=== PATIENT | female | born 1945 | race Caucasian/White ===

== ENCOUNTER → 2020-07-17 | Outpatient (CLI) | payer MEDICARE ==
--- NOTE | 2020-07-20 13:27 | MM ---
Reason for exam: screening (asymptomatic). History: Patient is postmenopausal. Took estrogen beginning at age 30. Physical Findings: A clinical breast exam by your physician is recommended on an annual basis and results should be correlated with mammographic findings. MG 3D Screening Mammo W/Cad Bilateral CC and MLO view(s) were taken. No prior studies available for comparison. There are scattered fibroglandular densities. There is no discrete abnormality. ASSESSMENT: Benign, BI-RAD 2 RECOMMENDATION: Routine screening mammogram of both breasts in 1 year.
== END | disposition home or self-care (01) ==
LOC: RADMAMWWP 15:39
PROVIDERS: ATTEND Family Medicine
DX: Z12.31 Encounter for screening mammogram for malignant neoplasm of breast (principal)
CPT/HCPCS: 77063; 77067

== ENCOUNTER 2022-01-21 11:39 | Observation (INO) | payer MEDICARE ==
[2022-01-21] MEDS ORDERED: NITROGLYCERIN OINT 1 INCH/GM PACKET TOPICAL STA (12:08)
[2022-01-21] MEDS ORDERED: ASPIRIN 81 MG PO STA (12:08)
--- NOTE | 2022-01-21 12:11 | ED ---
General Adult HPI - General Source: patient, RN notes reviewed Mode of arrival: wheelchair Limitations: no limitations <Ramana Monroy - Last Filed: 01/21/22 13:25> <Sixto Cramer - Last Filed: 01/21/22 16:57> - General Chief complaint: Chest Pain Stated complaint: Chest Pain Time Seen by Provider: 01/21/22 11:57 - History of Present Illness Initial comments: Patient is a pleasant 76-year-old female presenting to the emergency department chest discomfort. Onset of symptoms was yesterday. Discomfort feels like pressure and is moderate. Discomfort has been steady. Patient did not sleep well. There is some radiation towards the back. No dyspnea. Patient has been nauseous for the past several days and has vomited a couple times. No diaphoresis. Patient has been having abdominal discomfort for the past one week. Patient did have a computed tomography scan a different facility with a questionable fluid collection. Patient also had ultrasound of the left leg. Patient was originally started on blood thinners. When she started having abdominal problems blood thinners were stopped and ultrasound was reviewed showing no evidence of blood clot. (Ramana Monroy) - Related Data Home Medications Medication Instructions Recorded Confirmed Albuterol Sulfate [Ventolin HFA] 2 puff INHALATION RT-Q6H PRN 01/21/22 01/21/22 Cyanocobalamin [Vitamin B-12 1,000 mcg SQ QMONTHLY 01/21/22 01/21/22 Injection] Ergocalciferol (Vitamin D2) 1,250 mcg PO MO 01/21/22 01/21/22 [Drisdol (50,000 Iu)] Folic Acid 1 mg PO DAILY 01/21/22 01/21/22 Levothyroxine Sodium [Synthroid] 150 mcg PO DAILY 01/21/22 01/21/22 Meclizine HCl 25 mg PO BID PRN 01/21/22 01/21/22 Naltrexone HCl [Revia] 50 mg PO DAILY 01/21/22 01/21/22 Pantoprazole [Protonix] 40 mg PO DAILY 01/21/22 01/21/22 Sulfamethox-Tmp 800-160Mg [Bactrim 1 tab PO BID 01/21/22 01/21/22 DS 800-160 mg] cloNIDine HCL [Catapres] 0.1 mg PO BID 01/21/22 01/21/22 hydroCHLOROthiazide [Hydrodiuril] 12.5 mg PO DAILY 01/21/22 01/21/22 Allergies Allergy/AdvReac Type Severity Reaction Status Date / Time nickel Allergy Rash/Hives Verified 01/21/22 13:04 ranitidine [From Zantac] Allergy Swelling Verified 01/21/22 13:04 Review of Systems ROS Other: All systems not noted in ROS Statement are negative. Constitutional: Denies: fever Eyes: Denies: eye pain ENT: Denies: ear pain Respiratory: Denies: cough, dyspnea Cardiovascular: Reports: as per HPI, chest pain Endocrine: Denies: fatigue Gastrointestinal: Reports: as per HPI, abdominal pain, nausea, vomiting Genitourinary: Denies: dysuria Musculoskeletal: Reports: as per HPI Skin: Denies: rash Neurological: Denies: weakness <Ramana Monroy - Last Filed: 01/21/22 13:25> ROS Other: All systems not noted in ROS Statement are negative. <Sixto Cramer - Last Filed: 01/21/22 16:57> ROS Statement: Those systems with pertinent positive or pertinent negative responses have been documented in the HPI. Past Medical History Past Medical History: Hypertension History of Any Multi-Drug Resistant Organisms: None Reported Past Surgical History: Appendectomy, Cholecystectomy, Hernia Repair, Hysterectomy Additional Past Surgical History / Comment(s): gastro bypass Past Psychological History: No Psychological Hx Reported Smoking Status: Never smoker Past Alcohol Use History: Occasional Past Drug Use History: None Reported <Ramana Monroy - Last Filed: 01/21/22 13:25> General Exam Limitations: no limitations General appearance: alert, in no apparent distress Head exam: Present: normocephalic Eye exam: Present: normal appearance Neck exam: Present: normal inspection Respiratory exam: Present: normal lung sounds bilaterally. Absent: chest wall tenderness Cardiovascular Exam: Present: regular rate, normal rhythm, normal heart sounds Expanded Peripheral pulses: 2+: Dorsalis Pedis (R), Dorsalis Pedis (L) GI/Abdominal exam: Present: soft, tenderness (Mild to moderate tenderness left upper quadrant/epigastric). Absent: distended Extremities exam: Present: normal inspection. Absent: pedal edema, calf tenderness Back exam: Present: normal inspection. Absent: tenderness Neurological exam: Present: alert Psychiatric exam: Present: normal affect, normal mood Skin exam: Present: normal color <Ramana Monroy - Last Filed: 01/21/22 13:25> Course Vital Signs 01/21/22 01/21/22 01/21/22 11:40 13:13 15:35 Temperature 98.3 F 98.1 F Pulse Rate 62 57 L 60 Respiratory 18 14 12 Rate Blood Pressure 111/57 136/60 135/63 O2 Sat by Pulse 97 99 99 Oximetry EKG Findings - EKG Comments: EKG Findings:: Sinus bradycardia with rate of 54. For screening AV block IA 209. QRS 94. QT 448. QTC 434. Normal axis. Normal QRS. No acute ST change. <Ramana Monroy - Last Filed: 01/21/22 13:25> Medical Decision Making - Lab Data Result diagrams: 01/21/22 12:56 01/21/22 12:56 <Ramana Monroy - Last Filed: 01/21/22 13:25> - Lab Data Result diagrams: 01/21/22 12:56 01/21/22 12:56 <Sixto Cramer - Last Filed: 01/21/22 16:57> - Medical Decision Making 76-year-old female presenting for chest pain and left upper abdominal pain. Patient was sent in for evaluation of the primary care office. Patient's care was signed out at shift change awaiting CT imaging of both the chest and abdomen. This was reviewed, there is no acute findings, no pulmonary embolism, no dissection. No acute abdominal findings. Patient reevaluated, rate resting comfortably but continued to have left sided chest pain. She will be kept in observation for serial chronic enzymes, telemetry, cardiology consultation. Case discussed with [facility] physician group. (Sixto Cramer) - Lab Data Lab Results 01/21/22 01/21/22 01/21/22 Range/Units 12:56 12:56 12:56 WBC 8.0 (3.8-10.6) k/uL RBC 4.13 (3.80-5.40) m/uL Hgb 9.9 L (11.4-16.0) gm/dL Hct 33.8 L (34.0-46.0) % MCV 81.7 (80.0-100.0) fL MCH 24.0 L (25.0-35.0) pg MCHC 29.4 L (31.0-37.0) g/dL RDW 17.4 H (11.5-15.5) % Plt Count 295 (150-450) k/uL MPV 8.6 Neutrophils % 80 % Lymphocytes % 10 % Monocytes % 5 % Eosinophils % 3 % Basophils % 1 % Neutrophils # 6.3 (1.3-7.7) k/uL Lymphocytes # 0.8 L (1.0-4.8) k/uL Monocytes # 0.4 (0-1.0) k/uL Eosinophils # 0.3 (0-0.7) k/uL Basophils # 0.1 (0-0.2) k/uL Hypochromasia Moderate Anisocytosis Slight Microcytosis Slight PT 10.9 (9.0-12.0) sec INR 1.0 (<1.2) APTT 24.5 (22.0-30.0) sec Sodium 134 L (137-145) mmol/L Potassium 4.7 (3.5-5.1) mmol/L Chloride 100 (98-107) mmol/L Carbon Dioxide 23 (22-30) mmol/L Anion Gap 11 mmol/L BUN 19 H (7-17) mg/dL Creatinine 1.42 H (0.52-1.04) mg/dL Est GFR (CKD-EPI)AfAm 42 (>60 ml/min/1.73 sqM) Est GFR (CKD-EPI)NonAf 37 (>60 ml/min/1.73 sqM) Glucose 101 H (74-99) mg/dL Calcium 8.3 L (8.4-10.2) mg/dL Magnesium 2.1 (1.6-2.3) mg/dL Total Bilirubin 0.8 (0.2-1.3) mg/dL AST 32 (14-36) U/L ALT 8 (4-34) U/L Alkaline Phosphatase 86 (38-126) U/L Troponin I (0.000-0.034) ng/mL Total Protein 7.7 (6.3-8.2) g/dL Albumin 3.9 (3.5-5.0) g/dL Amylase 52 (30-110) U/L Lipase 110 (23-300) U/L 01/21/22 Range/Units 12:56 WBC (3.8-10.6) k/uL RBC (3.80-5.40) m/uL Hgb (11.4-16.0) gm/dL Hct (34.0-46.0) % MCV (80.0-100.0) fL MCH (25.0-35.0) pg MCHC (31.0-37.0) g/dL RDW (11.5-15.5) % Plt Count (150-450) k/uL MPV Neutrophils % % Lymphocytes % % Monocytes % % Eosinophils % % Basophils % % Neutrophils # (1.3-7.7) k/uL Lymphocytes # (1.0-4.8) k/uL Monocytes # (0-1.0) k/uL Eosinophils # (0-0.7) k/uL Basophils # (0-0.2) k/uL Hypochromasia Anisocytosis Microcytosis PT (9.0-12.0) sec INR (<1.2) APTT (22.0-30.0) sec Sodium (137-145) mmol/L Potassium (3.5-5.1) mmol/L Chloride (98-107) mmol/L Carbon Dioxide (22-30) mmol/L Anion Gap mmol/L BUN (7-17) mg/dL Creatinine (0.52-1.04) mg/dL Est GFR (CKD-EPI)AfAm (>60 ml/min/1.73 sqM) Est GFR (CKD-EPI)NonAf (>60 ml/min/1.73 sqM) Glucose (74-99) mg/dL Calcium (8.4-10.2) mg/dL Magnesium (1.6-2.3) mg/dL Total Bilirubin (0.2-1.3) mg/dL AST (14-36) U/L ALT (4-34) U/L Alkaline Phosphatase (38-126) U/L Troponin I <0.012 (0.000-0.034) ng/mL Total Protein (6.3-8.2) g/dL Albumin (3.5-5.0) g/dL Amylase (30-110) U/L Lipase (23-300) U/L Disposition <Ramana Monroy - Last Filed: 01/21/22 13:25> Is patient prescribed a controlled substance at d/c from ED?: No Time of Disposition: 16:57 <Sixto Cramer - Last Filed: 01/21/22 16:57> Clinical Impression: Chest pain Disposition: HOME SELF-CARE Condition: Stable Referrals: Lukas Graves MD [Primary Care Provider] - 1-2 days
[2022-01-21] MEDS: SODIUM CHLORIDE 0.9% 1,000 ML IV STA ×2 (12:54→15:26)
[2022-01-21 13:11] LABS: Anisocytosis Slight; Basophils # (A) 0.1 k/uL (0-0.2); Basophils % (A) 1 %; Eosinophils # (A) 0.3 k/uL (0-0.7); Eosinophils % (A) 3 %; HCT 33.8 % (34.0-46.0); HGB 9.9 gm/dL (11.4-16.0); Hypochromasia Moderate; Lymphocytes # (A) 0.8 k/uL (1.0-4.8); Lymphocytes % (A) 10 %; MCHC 29.4 g/dL (31.0-37.0); MCV 81.7 fL (80.0-100.0); Mean Platelet Volume 8.6; Microcytosis Slight; Monocytes # (A) 0.4 k/uL (0-1.0); Monocytes % (A) 5 %; Neutrophils # (A) 6.3 k/uL (1.3-7.7); Neutrophils % (A) 80 %; Platelet Count 295 k/uL (150-450); RBC 4.13 m/uL (3.80-5.40); RDW 17.4 % (11.5-15.5)
[2022-01-21 13:22] LABS: Albumin 3.9 g/dL (3.5-5.0); Calcium 8.3 mg/dL (8.4-10.2); Total Bilirubin 0.8 mg/dL (0.2-1.3); Total Protein 7.7 g/dL (6.3-8.2)
[2022-01-21 13:23] LABS: Magnesium 2.1 mg/dL (1.6-2.3); Potassium 4.7 mmol/L (3.5-5.1)
[2022-01-21] MEDS ORDERED: SODIUM CHLORIDE 0.9% 500 ML 500 ML IV STA (13:27)
[2022-01-21 14:01] LABS: Partial Thromboplastin Time 24.5 sec (22.0-30.0); Prothrombin Time 10.9 sec (9.0-12.0)
[2022-01-21] MEDS ORDERED: MORPHINE SULFATE 4 MG/ML SYRINGE IVP STA (15:39)
--- NOTE | 2022-01-21 16:31 | CT ---
EXAMINATION TYPE: CT angio chest DATE OF EXAM: 01/21/2022 4:19 PM COMPARISON: HISTORY: Chest pain and dyspnea. Pt labs GFR 37 Creat 1.[address] Monroy was advised and overrode, signing off on contrast injection. No prior CT DLP: 352.5 mGycm Automated exposure control for dose reduction was used. CONTRAST: CTA scan of the thorax is performed with IV Contrast, patient injected with 80 mL of Isovue 370, embo lism protocol. 3-D postprocessing was performed. FINDINGS: The lungs are clear of consolidative or interstitial density. There is a 4 mm nodule in the right mid dle lobe. No other pulmonary nodules are seen throughout the lung parenchyma. There is no pleural effusion, pleural thickening or pneumothorax. There is no mediastinal, hilar or axillary adenopathy. There is satisfactory contrast opacification the pulmonary arteries and branches and there are no jackie ling defects to suggest pulmonary embolism. There is mild aneurysmal dilatation of the ascending thoracic aorta which measures 4 cm Limited scanning through the upper abdomen reveals no gross abnormality. The osseous structures are intact. IMPRESSION: 1. No acute cardiopulmonary disease. 2. No evidence of pulmonary and was an. 3. 4 mm pulmonary nodule in the right middle lobe. Follow-up CT in 6 months is recommended to confirm stability.
--- NOTE | 2022-01-21 16:43 | CT ---
EXAMINATION TYPE: CT abdomen pelvis w con DATE OF EXAM: 01/21/2022 COMPARISON: None HISTORY: Abdominal pain and ascites Isovue 370/80 ml. Pt labs GFR 37 Creat 1.[address] Monroy was advised and overrode, signing off on contrast injection. CT DLP: 1578.3 mGycm Automated exposure control for dose reduction was used. TECHNIQUE: Helical acquisition of images from the lung bases through the pelvis have been completed. CONTRAST: Performed without Oral Contrast and with IV Contrast, patient injected with 80 mL of Isovue 370. FINDINGS: Inferior vena cava filter is in place. Chanda are present along the anterior abdominal wal l in the subxiphoid location. Metallic densities seen at the level of the mitral valve. LUNG BASES: No significant abnormality is appreciated. AORTA: No significant abnormality is appreciated. LIVER/GB: Patient is post cholecystectomy. Some mild prominence of biliary ducts may be due to postch olecystectomy change.. PANCREAS: No significant abnormality is seen. SPLEEN: No significant abnormality is seen. ADRENALS: No significant abnormality is seen. KIDNEYS: Cortical cysts are associated with the left kidney. REPRODUCTIVE ORGANS: Uterus is not seen. Left ovary may be present and atrophic, right ovary not seen with certainty BOWEL: Postop changes are noted at the level of the stomach and within the bowel. Diverticular prajapati es associated with the sigmoid colon. FREE AIR: No Free Air visible. ASCITES: There is a small amount of ascites present about the liver and spleen, within the mesentery and along the paracolic gutters, within the pelvis. PELVIC ADENOPATHY: None visualized. RETROPERITONEAL ADENOPATHY: No Retroperitoneal Adenopathy visible. URINARY BLADDER: No significant abnormality is seen. OSSEOUS STRUCTURES: No significant abnormality is seen. IMPRESSION: SMALL AMOUNT ASCITES IS NOTED. Diverticulosis. Postop changes.
[2022-01-21] MEDS ORDERED: ALBUTEROL NEBULIZED 2.5 MG/3 ML INHALATION PRN (16:53)
[2022-01-21] MEDS ORDERED: MECLIZINE 25 MG TAB PO PRN (16:53)
[2022-01-21] MEDS ORDERED: ONDANSETRON 4 MG/2 ML VIAL IVP PRN (16:54)
[2022-01-21] MEDS ORDERED: MORPHINE SULFATE 4 MG/ML SYRINGE IV PRN (16:54)
[2022-01-21] MEDS ORDERED: ACETAMINOPHEN TAB 325 MG TAB PO PRN (16:56)
[2022-01-21] MEDS ORDERED: NALOXONE 0.4 MG/ML 1 ML VIAL IVP PRN (16:56)
--- NOTE | 2022-01-21 17:37 | P.HPIM ---
History of Present Illness H&P Date: 01/21/22 Chief Complaint: chest/abdominal pain 76 year old woman with history of hypertension, gastric bypass, cholecystectomy presented for abdominal pain. Pain started this week and has gotten worse. Not particularly worse with food or position. Very severe in nature. She says the pain radiates to her chest as well. She denies fevers, chills, nausea, vomiting, cp, palps, syncope, presyncope, cough, dyspnea, abd pain, consitipation, diarrhea, dysuria, dyschezia, numbness/weakness of extremities. In the ER, patient is afebrile, 111/57, heart rate 62, 97% on room air. CBC is remarkable for hemoglobin of 9.9. Chemistries are remarkable for sodium of 134, BUN of 19, creatinine of 1.4. LFTs are unremarkable. Initial troponin is negative. Lipase is 110. CTA of the chest is negative. CT of the abdomen/pelvis is negative for kidney stones, no inflammation, But does have mild amount of ascites. EKG shows sinus bradycardia. Venous Doppler is negative for DVT. All Systems reviewed and pertinent positives and negatives noted in HPI, all other symptoms are negative Gen: awake, alert HEENT: normocephalic, atraumatic, good hearing acuity, moist mucous membranes Resp: good air exchange, breathing comfortably with no accessory muscle use CVS: good distal perfusion x 4, GI: soft, NTTP, ND : no SPT, no CVAT, hensley catheter not present MSK: no pitting edema, no clubbing Neuro: non-focal, moving all extremities Psych: cooperative, euthymic mood Labs and imaging reviewed as above Assessment/plan: Chest pain, atypical -Admit to observation, telemetry -Cardiology consult -Trend troponins -Echo -Aspirin, statin -TSH, A1c, lipid panel Abdominal pain -Surgery consult for colonoscopy -Tylenol when necessary Hypertension History of gastric bypass History of cholecystectomy -Home medications reviewed and reconciled Patient is full code DVT PPx heparin TID Past Medical History Past Medical History: Hypertension History of Any Multi-Drug Resistant Organisms: None Reported Past Surgical History: Appendectomy, Cholecystectomy, Hernia Repair, Hysterectomy Additional Past Surgical History / Comment(s): gastro bypass Past Psychological History: No Psychological Hx Reported Smoking Status: Never smoker Past Alcohol Use History: Occasional Past Drug Use History: None Reported Medications and Allergies Home Medications Medication Instructions Recorded Confirmed Type Albuterol Sulfate [Ventolin HFA] 2 puff INHALATION RT-Q6H PRN 01/21/22 01/21/22 History Cyanocobalamin [Vitamin B-12 1,000 mcg SQ QMONTHLY 01/21/22 01/21/22 History Injection] Ergocalciferol (Vitamin D2) 1,250 mcg PO MO 01/21/22 01/21/22 History [Drisdol (50,000 Iu)] Folic Acid 1 mg PO DAILY 01/21/22 01/21/22 History Levothyroxine Sodium [Synthroid] 150 mcg PO DAILY 01/21/22 01/21/22 History Meclizine HCl 25 mg PO BID PRN 01/21/22 01/21/22 History Naltrexone HCl [Revia] 50 mg PO DAILY 01/21/22 01/21/22 History Pantoprazole [Protonix] 40 mg PO DAILY 01/21/22 01/21/22 History Sulfamethox-Tmp 800-160Mg [Bactrim 1 tab PO BID 01/21/22 01/21/22 History DS 800-160 mg] cloNIDine HCL [Catapres] 0.1 mg PO BID 01/21/22 01/21/22 History hydroCHLOROthiazide [Hydrodiuril] 12.5 mg PO DAILY 01/21/22 01/21/22 History Allergies Allergy/AdvReac Type Severity Reaction Status Date / Time nickel Allergy Rash/Hives Verified 01/21/22 13:04 ranitidine [From Zantac] Allergy Swelling Verified 01/21/22 13:04 Physical Exam Osteopathic Statement: *. No significant issues noted on an osteopathic structural exam other than those noted in the History and Physical/Consult. Vitals: Vital Signs Temp Pulse Resp BP Pulse Ox 01/21/22 15:35 60 12 135/63 99 01/21/22 13:13 98.1 F 57 L 14 136/60 99 01/21/22 11:40 98.3 F 62 18 111/57 97 Intake and Output 01/21/22 01/21/22 01/21/22 06:59 14:59 22:59 Other: Weight 104.326 kg Results CBC & Chem 7: 01/21/22 12:56 01/21/22 12:56 Labs: Abnormal Lab Results - Last 24 Hours (Table) 01/21/22 01/21/22 Range/Units 12:56 12:56 Hgb 9.9 L (11.4-16.0) gm/dL Hct 33.8 L (34.0-46.0) % MCH 24.0 L (25.0-35.0) pg MCHC 29.4 L (31.0-37.0) g/dL RDW 17.4 H (11.5-15.5) % Lymphocytes # 0.8 L (1.0-4.8) k/uL Sodium 134 L (137-145) mmol/L BUN 19 H (7-17) mg/dL Creatinine 1.42 H (0.52-1.04) mg/dL Glucose 101 H (74-99) mg/dL Calcium 8.3 L (8.4-10.2) mg/dL
[2022-01-21 18:55] LABS: Appearance,Urine Clear (Clear); Bacteria,Urine Rare /hpf; Bilirubin,Urine Negative (Negative); Blood,Urine Negative (Negative); Color,Urine Light Yellow; Glucose,Urine (UA) Negative (Negative); Ketones,Urine Negative (Negative); Leukocyte Esterase,Urine Trace (Negative); Mucus,Urine Rare /hpf; Nitrite,Urine Negative (Negative); Protein,Urine Negative (Negative); Specific Gravity,Urine 1.018 (1.001-1.035); Squamous Epithelial Cell,Urine 1 /hpf (0-4); Urobilinogen,Urine <2.0 mg/dL (<2.0); WBC,Urine 1 /hpf (0-5)
--- NOTE | 2022-01-21 19:35 | US ---
EXAMINATION TYPE: US gallbladder DATE OF EXAM: 01/21/2022 COMPARISON: NONE CLINICAL HISTORY: chest pain. EXAM MEASUREMENTS: Liver Length: 17.0 cm Gallbladder Wall: Surgically absent CBD: 0.8 cm Right Kidney: 10.5 x 3.7 x 3.8 cm Patient of large body habitus with extensive midline bowel gas. Pancreas: obscured by overlying bowel Liver: somewhat limited visualization, upper limits of normal in size Gallbladder: Surgically absent Evidence for sonographic Rahman's sign: no CBD: echogenic foci seen within, this may be debris or artifact. Right Kidney: No hydronephrosis or masses seen Mild ascites IMPRESSION: Gallbladder is absent. The common bile duct is 8 mm but no dilation of the intrahepatic bile ducts. R ight kidney appears normal. No obstruction. There is some mild abdominal ascites fluid noted.
[2022-01-21] MEDS: METOPROLOL TARTRATE 12.5 MG TAB PO SCH ×2 (22:48→22:49)
[2022-01-21] MEDS: cloNIDine HCL 0.1 MG TAB PO SCH (22:49)
[2022-01-21] MEDS: ATORVASTATIN 40 MG TAB PO SCH (22:52)
[2022-01-22] MEDS: HEPARIN SODIUM,PORCINE/PF 5,000 UNIT/0.5 ML SYRINGE SQ SCH ×4 (01:05→23:36)
[2022-01-22] MEDS: HYDROmorphone 0.5 MG/0.5 ML SYRINGE IVP PRN ×7 (01:06→23:36)
[2022-01-22] MEDS: LEVOTHYROXINE 75 MCG TAB PO SCH (05:14)
[2022-01-22] MEDS: ASPIRIN 81 MG PO SCH (08:45)
[2022-01-22] MEDS: cloNIDine HCL 0.1 MG TAB PO SCH ×2 (08:46→20:13)
[2022-01-22] MEDS: PANTOPRAZOLE 40 MG TABLET PO SCH (08:46)
[2022-01-22] MEDS: FOLIC ACID 1 MG TAB PO SCH (08:46)
[2022-01-22] MEDS: METOPROLOL TARTRATE 12.5 MG TAB PO SCH ×2 (08:49→19:30)
[2022-01-22] MEDS ORDERED: ENOXAPARIN 40 MG/0.4 ML SYRINGE SQ SCH (09:00)
[2022-01-22 09:27] LABS: T4, Free (Free Thyroxine) 2.16 ng/dL (0.78-2.19)
[2022-01-22] MEDS: hydroCHLOROthiazide 12.5 MG CAP PO SCH (10:15)
[2022-01-22] MEDS: NALTREXONE HCL 50 MG TAB PO SCH (10:16)
--- NOTE | 2022-01-22 10:34 | CONS ---
CONSULTATION CHIEF COMPLAINT: Chest pain. Doris is a 76-year-old lady with history of hypertension and hypothyroidism who has had a recent DVT and was started on Xarelto. She presented to hospital complaining of discomfort that involves left lower part of her chest, radiates to left upper quadrant and towards the umbilical area. Cardiology has been consulted for evaluation of chest pain. At the time of my evaluation, she appears comfortable at rest and is free of symptoms and has an EKG that is negative for ischemic changes. She had a CT scan of the chest that is negative for pulmonary embolism. She had three sets of troponins that are all within normal limits. Her hemoglobin is low at 9.9. Potassium is 4.7 and creatinine is 1.4. She has had nausea and not been able to the eat for almost a week now. Her clinical presentation does not seem consistent with a cardiac etiology. I will review the echocardiogram that has already been done, and if it does not show any wall motion abnormalities or LV systolic dysfunction, she does not require any further workup at this time. However, I will consider an outpatient Lexiscan on her. PAST MEDICAL HISTORY: Significant for hypothyroidism, hypertension, dizziness and DVT. MEDICATIONS: Medications at home included folic acid, Catapres, HydroDIURIL, Synthroid, Xarelto, meclizine. ALLERGIES: ZANTAC AND NICKEL. FAMILY HISTORY: Negative for premature coronary artery disease. SOCIAL HISTORY: Negative for smoking, EtOH abuse or drug abuse. REVIEW OF SYSTEMS: HEENT is unremarkable. CARDIAC: As described above. RESPIRATORY: As described above. GI: As described above. GENITOURINARY: Negative. ALLERGY/IMMUNOLOGY: Negative. SKIN: Negative. MUSCULOSKELETAL: Negative. ENDOCRINE: Negative. DERMATOLOGY: Negative. CONSTITUTIONAL: Negative. ONCOLOGICAL: Negative. OPERATIONAL COMMUNICATION CHIEF: Negative. Rest of the system review is not relevant. PHYSICAL EXAMINATION: Comfortable at rest. Afebrile. Vital signs are stable. Oxygen saturation is 97% on room air. There is no jugular venous distention. Carotid upstroke is normal. There is no bruit. Chest exam reveals good air entry bilaterally. Heart exam reveals first and second heart sounds. No gallop. No murmur. No rub. Abdomen is soft, nontender. Examination of extremities did not reveal edema. Peripheral pulses are felt. LABS: Labs show a hemoglobin of 9.9, platelet count is 295. Potassium is 4.7. Creatinine is 1.4. Troponins are negative. EKG is normal. TSH is low. Free T4 is within normal limits. ASSESSMENT: Precordial chest pain. PLAN: Patient's chest discomfort is sharp, atypical, seems noncardiac. I will review the echo. The patient is currently undergoing GI workup. If she is here, we will see her tomorrow, and I will schedule her for an outpatient stress test if needed. MMODL / IJN: [id number] /
--- NOTE | 2022-01-22 11:22 | CA ---
Transthoracic Echo Report Name: Doris Vasquez Age: 76 Gender: F : 1945 Exam Date: 01/22/2022 09:57 Exam Location: [facility] Ht (in): 68 Wt (lb): 230 Ordering Physician: Katiana Taylor Attending/Referring Phys: Enterprise Software Engineer Taisha Farrell RDCS Procedure CPT: Indications: Chest Pain Cardiac Hx: Technical Quality: Good Contrast 1: Total Dose (mL): Contrast 2: Total Dose (mL): MEASUREMENTS (Male / Female) Normal Values 2D ECHO LV Diastolic Diameter PLAX 3.9 cm 4.2 - 5.9 / 3.9 - 5.3 cm LV Systolic Diameter PLAX 1.6 cm IVS Diastolic Thickness 0.8 cm 0.6 - 1.0 / 0.6 - 0.9 cm LVPW Diastolic Thickness 1.3 cm 0.6 - 1.0 / 0.6 - 0.9 cm LV Relative Wall Thickness 0.5 LA Volume 32.7 cm??? 18 - 58 / 22 - 52 cm??? M-MODE Aortic Root Diameter MM 3.4 cm LA Systolic Diameter MM 2.6 cm LA Ao Ratio MM 0.8 MV E Point Septal Separation 0.9 cm AV Cusp Separation MM 2.2 cm DOPPLER AV Peak Velocity 115.4 cm/s AV Peak Gradient 5.3 mmHg MV Area PHT 2.8 cm??? MR Peak Velocity 116.3 cm/s MR Peak Gradient 5.4 mmHg Mitral E Point Velocity 71.3 cm/s Mitral A Point Velocity 103.1 cm/s Mitral E to A Ratio 0.7 MV Deceleration Time 268.0 ms MV E' Velocity 7.2 cm/s Mitral E to MV E' Ratio 9.9 TR Peak Velocity 121.2 cm/s TR Peak Gradient 5.9 mmHg Right Ventricular Systolic Press 10.9 mmHg FINDINGS Left Ventricle Mildly increased posterior wall thickness. Left ventricular ejection fraction is estimated at 55-60 %. Left ventricular cavity size normal. Right Ventricle The right ventricle is normal in size and function. Right Atrium The right atrium is normal in size. Left Atrium The left atrium is normal in size. Mitral Valve Structurally normal mitral valve without significant stenosis or prolapse. There is mild mitral regurgitation. Mitral valve thickened. Aortic Valve Structurally normal aortic valve without significant sclerosis or stenosis. There is no aortic regurgitation. Tricuspid Valve Structurally normal tricuspid valve without significant stenosis. Pulmonary artery systolic pressure is normal. Trace tricuspid regurgitation. Pulmonic Valve Structurally normal pulmonic valve without significant stenosis. There is no pulmonic regurgitation. Pericardium Normal pericardium without effusion. Aorta Normal aortic root dimension. CONCLUSIONS Left ventricular systolic function is normal. Previewed by: Dr. Matt Hawk MD (Electronically Signed) Final Date: 22 Jan 2022 11:21
[2022-01-22 11:59] LABS: Basophils # (A) 0.07 X 10*3/uL (0.00-0.10); Eosinophils % (A) 5.7 %; HCT 30.8 % (37.2-46.3); HGB 9.1 g/dL (12.0-15.0); Immature Grans, Automated 0.3 %; Lymphocytes # (A) 0.79 X 10*3/uL (0.90-5.00); Lymphocytes % (A) 11.3 %; MCH 23.8 pg (27.0-32.0); MCHC 29.5 g/dL (32.0-37.0); MCV 80.4 fL (80.0-97.0); Mean Platelet Volume 11.7 fL (9.5-12.2); Monocytes # (A) 0.68 X 10*3/uL (0.20-1.00); Monocytes % (A) 9.7 %; NRBC Per 100 WBC 0 /100 WBCS (0.0-0.0); Neutrophils # (A) 5.03 X 10*3/uL (1.80-7.70); Platelet Count 285 X 10*3/uL (140-440); RBC 3.83 X 10*6/uL (4.10-5.20); RDW 19.1 % (11.5-14.5); WBC 6.99 X 10*3/uL (4.50-10.00)
[2022-01-22 12:22] LABS: BUN/Creat Ratio 9.42 Ratio (12.00-20.00); Blood Urea Nitrogen 11.4 mg/dL (9.0-27.0); Calcium 8.5 mg/dL (8.7-10.3); Magnesium 2.2 mg/dL (1.5-2.4); Potassium 3.9 mmol/L (3.5-5.5)
--- NOTE | 2022-01-22 13:14 | P.GSCN ---
History of Present Illness Consult date: 01/22/22 History of present illness: REASON FOR CONSULTATION: Atypical chest pain, abdominal pain HISTORY OF PRESENT ILLNESS: The patient is a 76-year-old female who reports eller ving micro-pouch gastric bypass done in [place] since 2003, almost 20 years ago. She reports past history of dysphagia requiring upper endoscopy and dilation. She reports 6 day history of unable to tolerate food or keep oral intake. She reports bilateral lower abdominal pain including chest pain. Cardiology consultation was obtained where patient cleared of acute cardiac event. Due to her abdominal pain and atypical chest pain, general surgery is consulted. Incidentally, patient reports losing over 200+ pounds with her gastric bypass. PAST MEDICAL HISTORY: See list and reviewed PAST SURGICAL HISTORY: See list and reviewed MEDICATIONS: See list and reviewed ALLERGIES: See list and reviewed SOCIAL HISTORY: See list and reviewed FAMILY HISTORY: See list and reviewed REVIEW OF ORGAN SYSTEMS: CONSTITUTIONAL: No fevers or chills. Intentional weight loss following gastric bypass 215 pounds. Morbid obesity due to excess calories, BMI 35.0. EYES: Denies any trouble with vision. No glasses. HEENT: No difficulties with hearing. No nosebleeds. History of difficulty swallowing. RESPIRATORY: Has asthma. CARDIOVASCULAR: Presented with atypical chest pain. Has hypertension. GASTROINTESTINAL: History of gastric bypass. History of cholecystectomy. Reports prior change in bowel habits. Has gastroesophageal reflux disease. GENITOURINARY: Denies any blood in urine or increased urinary frequency. NEUROLOGICAL: Denies any numbness or tingling along the distal extremities. No seizure disorders or headaches. MUSCULOSKELETAL: Denies any back pain, stiffness or joint arthritis. SKIN: No current skin cancer. No rash. PSYCHIATRIC: Denies current depression or suicidal thoughts. ENDOCRINE: Has hypothyroidism. Denies any blood sugar glucose intolerance. HEME/LYMPHATIC: Denies any lumps and bumps around the neck. No recent deep venous thrombosis. ALLERGY/IMMUNOLOGY: No immunoglobulin therapy. No immune deficiencies. BREAST: Denies current breast lumps, pain or nipple discharge. PHYSICAL EXAM: VITALS: Reviewed CONSTITUTIONAL: Well developed and in no acute distress. EYES: Conjuctivae without sclera icterus. Extraocular movements grossly intact. HEAD, EARS, NOSE, THROAT: Moist buccal mucosa. Head is atraumatic, normocephalic. Hears conversational speech. No nasal drainage. NECK: Supple. No JV distention. No thyroidomegaly. RESPIRATORY: Non-labored respirations and equal bilateral excursions. No gross wheezes. CARDIOVASCULAR: Palpable 2+ radial pulses. ABDOMEN: Moderate-sized pannus, abdomen protuberant with mild tenderness lower abdomen. Mild tenderness epigastrium. No diffuse peritonitis. LYMPH: No neck lymphadenopathy. MUSCULOSKELETAL: No clubbing cyanosis. SKIN: Warm and well perfused with good skin turgor. NEUROLOGIC: Cranial nerves II through XII grossly intact. No focal or lateralizing signs. PSYCH: Appropriate affect. Alert and oriented to person, place and time. Displays appropriate insight. CLINCAL LABS: Reviewed. Hemoglobin low, 9.1, anemia. WBC normal 6.9. Creatinine improved to 1.42-1.2. Troponins negative. IMAGING: Independently reviewed. CT of the abdomen and pelvis without internal hernia or mesenteric swirl or bowel obstruction. Features consistent with gastric bypass identified. This is my independent interpretation. Cholecystectomy clips also identified of the right upper quadrant. Abdominal ascites identified. Right lobe of the liver enlarged. RADIOLOGY: Report reviewed up CT demonstrating diverticulosis with small amount of ascites, abdominal wall clips, IVC filter. ASSESSMENT: 1. History of gastric bypass with abdominal pain. 2. Atypical chest pain with history of dysphagia 3. Morbid obesity due to excess calories, BMI 35.0 4. History of gastrojejunal stricture with prior dilation PLAN: 1. IV fluid hydration. 2. With a history of gastric bypass, modified diet bariatric diet advised. May have bariatric clears. 3. Symptoms highly suspicious for gastrojejunal stricture which will require upper endoscopy and dilation ADVANCE DIRECTIVE: Thank you for this kind consultation. Past Medical History Past Medical History: Hypertension History of Any Multi-Drug Resistant Organisms: None Reported Past Surgical History: Appendectomy, Cholecystectomy, Hernia Repair, Hy sterectomy Additional Past Surgical History / Comment(s): gastro bypass Past Psychological History: No Psychological Hx Reported Smoking Status: Never smoker Past Alcohol Use History: Occasional Past Drug Use History: None Reported Medications and Allergies Home Medications Medication Instructions Recorded Confirmed Type Albuterol Sulfate [Ventolin HFA] 2 puff INHALATION RT-Q6H PRN 01/21/22 01/21/22 History Cyanocobalamin [Vitamin B-12 1,000 mcg SQ QMONTHLY 01/21/22 01/21/22 History Injection] Ergocalciferol (Vitamin D2) 1,250 mcg PO MO 01/21/22 01/21/22 History [Drisdol (50,000 Iu)] Folic Acid 1 mg PO DAILY 01/21/22 01/21/22 History Levothyroxine Sodium [Synthroid] 150 mcg PO DAILY 01/21/22 01/21/22 History Meclizine HCl 25 mg PO BID PRN 01/21/22 01/21/22 History Naltrexone HCl [Revia] 50 mg PO DAILY 01/21/22 01/21/22 History Pantoprazole [Protonix] 40 mg PO DAILY 01/21/22 01/21/22 History Sulfamethox-Tmp 800-160Mg [Bactrim 1 tab PO BID 01/21/22 01/21/22 History DS 800-160 mg] cloNIDine HCL [Catapres] 0.1 mg PO BID 01/21/22 01/21/22 History hydroCHLOROthiazide [Hydrodiuril] 12.5 mg PO DAILY 01/21/22 01/21/22 History Allergies Allergy/AdvReac Type Severity Reaction Status Date / Time nickel Allergy Rash/Hives Verified 01/21/22 13:04 ranitidine [From Zantac] Allergy Swelling Verified 01/21/22 13:04 Surgical - Exam Vital Signs Temp Pulse Resp BP Pulse Ox 98.3 F 62 18 111/57 97 01/21/22 11:40 01/21/22 11:40 01/21/22 11:40 01/21/22 11:40 01/21/22 11:40 Results - Labs 01/22/22 06:57 01/22/22 06:57 Abnormal Lab Results - Last 24 Hours (Table) 01/21/22 01/21/22 01/21/22 Range/Units 12:56 12:56 18:42 RBC (4.10-5.20) X 10*6/uL Hgb 9.9 L (11.4-16.0) gm/dL Hct 33.8 L (34.0-46.0) % MCH 24.0 L (25.0-35.0) pg MCHC 29.4 L (31.0-37.0) g/dL RDW 17.4 H (11.5-15.5) % Lymphocytes # 0.8 L (1.0-4.8) k/uL Eosinophils # (0.04-0.35) X 10*3/uL Sodium 134 L (137-145) mmol/L BUN 19 H (7-17) mg/dL Creatinine 1.42 H (0.52-1.04) mg/dL Est GFR (CKD-EPI)AfAm (60.0-200.0) Est GFR (CKD-EPI)NonAf (60.0-200.0) BUN/Creatinine Ratio (12.00-20.00) Ratio Glucose 101 H (74-99) mg/dL Calcium 8.3 L (8.4-10.2) mg/dL TSH (0.465-4.680) mIU/L Ur Leukocyte Esterase Trace H (Negative) Urine Bacteria Rare H (None) /hpf Urine Mucus Rare H (None) /hpf 01/22/22 01/22/22 01/22/22 Range/Units 06:57 06:57 06:57 RBC 3.83 L (4.10-5.20) X 10*6/uL Hgb 9.1 L (11.4-16.0) gm/dL Hct 30.8 L (34.0-46.0) % MCH 23.8 L (25.0-35.0) pg MCHC 29.5 L (31.0-37.0) g/dL RDW 19.1 H (11.5-15.5) % Lymphocytes # 0.79 L (1.0-4.8) k/uL Eosinophils # 0.40 H (0.04-0.35) X 10*3/uL Sodium (137-145) mmol/L BUN (7-17) mg/dL Creatinine (0.52-1.04) mg/dL Est GFR (CKD-EPI)AfAm 51.0 L (60.0-200.0) Est GFR (CKD-EPI)NonAf 44.0 L (60.0-200.0) BUN/Creatinine Ratio 9.42 L (12.00-20.00) Ratio Glucose (74-99) mg/dL Calcium 8.5 L (8.4-10.2) mg/dL TSH 0.171 L (0.465-4.680) mIU/L Ur Leukocyte Esterase (Negative) Urine Bacteria (None) /hpf Urine Mucus (None) /hpf Diabetes panel 05/27/22 05/28/22 05/28/22 Range/Units 12:56 06:57 06:57 Sodium 134 L 137 (137-145) mmol/L Potassium 4.7 3.9 (3.5-5.1) mmol/L Chloride 100 100 (98-107) mmol/L Carbon Dioxide 23 24.0 (22-30) mmol/L BUN 19 H 11.4 (7-17) mg/dL Creatinine 1.42 H 1.2 (0.52-1.04) mg/dL Glucose 101 H 90 (74-99) mg/dL Hemoglobin A1c 5.3 (0.0-6.0) % Calcium 8.3 L 8.5 L (8.4-10.2) mg/dL AST 32 (14-36) U/L ALT 8 (4-34) U/L Alkaline Phosphatase 86 (38-126) U/L Total Protein 7.7 (6.3-8.2) g/dL Albumin 3.9 (3.5-5.0) g/dL Thyroid panel 01/22/22 Range/Units 06:57 TSH 0.171 L (0.465-4.680) mIU/L Calcium panel 01/21/22 01/22/22 Range/Units 12:56 06:57 Calcium 8.3 L 8.5 L (8.4-10.2) mg/dL Albumin 3.9 (3.5-5.0) g/dL Pituitary panel 01/21/22 01/22/22 01/22/22 Range/Units 12:56 06:57 06:57 Sodium 134 L 137 (137-145) mmol/L Potassium 4.7 3.9 (3.5-5.1) mmol/L Chloride 100 100 (98-107) mmol/L Carbon Dioxide 23 24.0 (22-30) mmol/L BUN 19 H 11.4 (7-17) mg/dL Creatinine 1.42 H 1.2 (0.52-1.04) mg/dL Glucose 101 H 90 (74-99) mg/dL Calcium 8.3 L 8.5 L (8.4-10.2) mg/dL TSH 0.171 L (0.465-4.680) mIU/L Adrenal panel 01/21/22 01/22/22 Range/Units 12:56 06:57 Sodium 134 L 137 (137-145) mmol/L Potassium 4.7 3.9 (3.5-5.1) mmol/L Chloride 100 100 (98-107) mmol/L Carbon Dioxide 23 24.0 (22-30) mmol/L BUN 19 H 11.4 (7-17) mg/dL Creatinine 1.42 H 1.2 (0.52-1.04) mg/dL Glucose 101 H 90 (74-99) mg/dL Calcium 8.3 L 8.5 L (8.4-10.2) mg/dL Total Bilirubin 0.8 (0.2-1.3) mg/dL AST 32 (14-36) U/L ALT 8 (4-34) U/L Alkaline Phosphatase 86 (38-126) U/L Total Protein 7.7 (6.3-8.2) g/dL Albumin 3.9 (3.5-5.0) g/dL
--- NOTE | 2022-01-22 16:07 | P.PN ---
Subjective Progress Note Date: 01/22/22 Ongoing abd pain. Seen by surgery, plan for EGD, then possibly colonoscopy. ACS ruled out. Gen: awake, alert HEENT: normocephalic, atraumatic, good hearing acuity, moist mucous membranes Resp: good air exchange, breathing comfortably with no accessory muscle use CVS: good distal perfusion x 4, GI: soft, NTTP, ND : no SPT, no CVAT, hensley catheter not present MSK: no pitting edema, no clubbing Neuro: non-focal, moving all extremities Psych: cooperative, euthymic mood Assessment/plan: Chest pain, atypical -Admit to observation, telemetry -Cardiology consult -Trend troponins -Echo with good EF, no WMA -Aspirin, statin -TSH, A1c, lipid panel Abdominal pain -Surgery consult for EGD/colonoscopy -Tylenol when necessary Hypertension History of gastric bypass History of cholecystectomy -Home medications reviewed and reconciled Patient is full code DVT PPx heparin TID Objective - Vital Signs Vital signs: Vital Signs Temp 97.8 F 01/22/22 14:58 Pulse 64 01/22/22 14:58 Resp 18 01/22/22 14:58 BP 132/75 01/22/22 14:58 Pulse Ox 98 01/22/22 14:58 FiO2 Intake & Output 01/21/22 01/22/22 01/22/22 18:59 06:59 18:59 Weight 104.326 kg 104.326 kg Other: # Voids 1 3 - Labs CBC & Chem 7: 01/22/22 06:57 01/22/22 06:57 Labs: Abnormal Lab Results - Last 24 Hours (Table) 01/21/22 01/22/22 01/22/22 Range/Units 18:42 06:57 06:57 RBC 3.83 L (4.10-5.20) X 10*6/uL Hgb 9.1 L (12.0-15.0) g/dL Hct 30.8 L (37.2-46.3) % MCH 23.8 L (27.0-32.0) pg MCHC 29.5 L (32.0-37.0) g/dL RDW 19.1 H (11.5-14.5) % Lymphocytes # 0.79 L (0.90-5.00) X 10*3/uL Eosinophils # 0.40 H (0.04-0.35) X 10*3/uL Est GFR (CKD-EPI)AfAm 51.0 L (60.0-200.0) Est GFR (CKD-EPI)NonAf 44.0 L (60.0-200.0) BUN/Creatinine Ratio 9.42 L (12.00-20.00) Ratio Calcium 8.5 L (8.7-10.3) mg/dL TSH (0.465-4.680) mIU/L Ur Leukocyte Esterase Trace H (Negative) Urine Bacteria Rare H (None) /hpf Urine Mucus Rare H (None) /hpf 01/22/22 Range/Units 06:57 RBC (4.10-5.20) X 10*6/uL Hgb (12.0-15.0) g/dL Hct (37.2-46.3) % MCH (27.0-32.0) pg MCHC (32.0-37.0) g/dL RDW (11.5-14.5) % Lymphocytes # (0.90-5.00) X 10*3/uL Eosinophils # (0.04-0.35) X 10*3/uL Est GFR (CKD-EPI)AfAm (60.0-200.0) Est GFR (CKD-EPI)NonAf (60.0-200.0) BUN/Creatinine Ratio (12.00-20.00) Ratio Calcium (8.7-10.3) mg/dL TSH 0.171 L (0.465-4.680) mIU/L Ur Leukocyte Esterase (Negative) Urine Bacteria (None) /hpf Urine Mucus (None) /hpf
[2022-01-22] MEDS: ATORVASTATIN 40 MG TAB PO SCH (19:30)
[2022-01-22] MEDS: CYCLOBENZAPRINE 5 MG TAB PO PRN (19:30)
[2022-01-23 00:17] LABS: Chol/HDL Ratio 2.96 Ratio; LDL Cholesterol,Calculated 70.6 mg/dL (0.0-131.0); VLDL Calculation 19.48 mg/dL (5.00-40.00)
[2022-01-23] MEDS: HYDROmorphone 0.5 MG/0.5 ML SYRINGE IVP PRN ×3 (02:35→09:32)
[2022-01-23] MEDS: CYCLOBENZAPRINE 5 MG TAB PO PRN (03:55)
[2022-01-23] MEDS: LEVOTHYROXINE 75 MCG TAB PO SCH (06:00)
[2022-01-23] MEDS: HEPARIN SODIUM,PORCINE/PF 5,000 UNIT/0.5 ML SYRINGE SQ SCH ×3 (09:33→23:55)
--- NOTE | 2022-01-23 11:15 | P.PN ---
Subjective Progress Note Date: 01/23/22 Patient has a known history of hypertension hyperthyroidism DVT. She initially came into the hospital complaining of discomfort involving her left upper quadrant and left lower chest, with pain radiating toward the umbilical area. We were consulted to evaluate her for chest pain. Today she is seen sitting on the side of the bed uncomfortable due to abdominal pain. She is to undergo a EGD with possible colonoscopy for possible gastrojejunal stricture evaluation. Her echocardiogram shows a normal LV function with an ejection fraction of 55-60% with mild mitral regurgitation. She denies chest pain or increased shortness of breath. No further cardiac workup is necessary at this time. Objective - Vital Signs Vital signs: Vital Signs Temp 98.4 F 01/23/22 07:17 Pulse 67 01/23/22 07:17 Resp 18 01/23/22 07:17 BP 125/72 01/23/22 07:17 Pulse Ox 95 01/23/22 07:17 FiO2 Intake & Output 01/22/22 01/23/22 01/23/22 18:59 06:59 18:59 Intake Total 250 Balance 250 Intake: Oral 250 Other: # Voids 3 1 - Exam PHYSICAL EXAM: VITAL SIGNS: Reviewed. GENERAL: Well-developed in no acute distress. HEENT: Head is normocephalic. Pupils are equal, round. Sclerae anicteric. Mucous membranes of the mouth are moist. NECK: Supple. No JVD or thyromegaly RESPIRATORY: Respirations even and unlabored. Lungs diminished to auscultation bilaterally. CARDIO: Regular rate and rhythm. S1 and S2 heard. No murmur or gallops. EXTREMITIES: Normal range of motion. No clubbing or cyanosis. Peripheral pulses intact. Negative for bilateral lower extremity edema NEURO: Orientated to person, time, mood is appropriate - Labs CBC & Chem 7: 01/22/22 06:57 01/22/22 06:57 Labs: Abnormal Lab Results - Last 24 Hours (Table) 01/22/22 01/22/22 Range/Units 06:57 06:57 RBC 3.83 L (4.10-5.20) X 10*6/uL Hgb 9.1 L (12.0-15.0) g/dL Hct 30.8 L (37.2-46.3) % MCH 23.8 L (27.0-32.0) pg MCHC 29.5 L (32.0-37.0) g/dL RDW 19.1 H (11.5-14.5) % Lymphocytes # 0.79 L (0.90-5.00) X 10*3/uL Eosinophils # 0.40 H (0.04-0.35) X 10*3/uL Est GFR (CKD-EPI)AfAm 51.0 L (60.0-200.0) Est GFR (CKD-EPI)NonAf 44.0 L (60.0-200.0) BUN/Creatinine Ratio 9.42 L (12.00-20.00) Ratio Calcium 8.5 L (8.7-10.3) mg/dL Assessment and Plan Assessment: Noncardiac chest pain Plan: Chest pain is atypical and cardiac causes have been ruled out. Echocardiogram has been reviewed troponins were negative 3 Continue with all current cardiac medications Tamie with telemetry monitoring Continue with strict I's and O's Further recommendations based on clinical course The above impression and plan of care have been discussed and directed by the signing physician. Katiana Taylor, nurse practitioner, acting as scribe for signing physician.
[2022-01-23] MEDS ORDERED: PROPOFOL 10 MG/ML 20 ML VIAL IV ONE (11:29)
[2022-01-23] MEDS ORDERED: SODIUM CHLORIDE 0.9% 500 ML 500 ML IV ONE (11:33)
--- NOTE | 2022-01-23 12:14 | P.PCN ---
Date of Procedure: 01/23/22 Description of Procedure: PREOPERATIVE DIAGNOSIS: History of gastric bypass Epigastric abdominal pain Atypical chest pain Dysphagia POSTOPERATIVE DIAGNOSIS: Esophageal dysmotility Gastric stenosis Esophageal stenosis, distal History of gastric bypass OPERATION: Esophagogastroduodenoscopy with rigid dilator over the guidewire 54 Fr with dilation for esophagus Esophagogastroduodenoscopy with balloon dilation, 20 mm for gastric stenosis SURGEON: Minal Dumont MD ANESTHESIA: MAC. INDICATIONS: The patient is a 76-year-old female who presents with atypical chest pain and dysphagia. Benefits and risks of the procedure were described. Informed consent was obtained. DESCRIPTION: The patient was brought into the endoscopy suite and laid in the left lateral decubitus position. After a timeout was confirmed, the procedure was initiated. An Olympus gastroscope was passed into the posterior oropharynx where an upper esophageal stenosis was identified. The scope was passed down to the distal esophagus. To address the upper esophageal stenosis, rigid dilator over guidewire was selected. Next using an [place] rigid dilator, a guidewire was placed through the gastroscope. Next the scope was withdrawn. A 57-Syrian rigid [place] dilator was passed carefully along the posterior oropharynx to 45 cm and left in place for 2-3 minutes stretch to address esophageal stenosis. The dilator was withdrawn including the guidewire. The scope was reentered along the posterior oropharynx with no findings of full-thickness tear of the upper esophageal sphincter. Additional findings below. The gastric pouch was entered. A gastrojejunal stricture of 12 mm was found as the adult gastroscope was 9.5 mm in size. A [employer] balloon dilator was placed through the scope. Final insufflation up to 20 mm was performed with a total of 2 minutes. The scope was advanced up to 60 cm from the incisors into the Denisa limb. The mucosa of the gastrojejunal anastomosis was intact. No chronic gastrojejunal marginal ulcer was encountered. No full-thickness injury was encountered. The GI tract was desufflated. The patient tolerated the procedure well. FINDINGS: Lower esophageal stenosis dilated 54-Syrian rigid dilator Diaphragmatic hiatus at 37 cm from the incisors Squamocolumnar junction 38 cm from the incisors. No acute gastric ulcerations identified. LA grade B erosive esophagitis Stricture of approximately 12 mm encountered. No chronic gastrojejunal ulceration encountered. Successful balloon dilatation to 20 mm. Features of presbyesophagus RECOMMENDATIONS: Recommend dysphagia pured or ground diet for presbyesophagus Upper endoscopy as needed
--- NOTE | 2022-01-23 13:20 | P.PN ---
Subjective Progress Note Date: 01/23/22 CHIEF COMPLAINT: Abdominal pain HISTORY OF PRESENT ILLNESS: The patient is a 76-year-old female who reports having micro-pouch gastric bypass done in [place] since 2003, almost 20 years ago. She was 451 pounds at that time. She has maintained over 200 pound weight loss. She reports not passing flatus in 5-6 days however she had a bowel movement 3 days ago. "I haven't eaten much in the last few days." She had completed an upper endoscopy. She denies shortness of breath. She had atypical chest pain. REVIEW OF ORGAN SYSTEMS: CONSTITUTIONAL: No fevers or chills. Intentional weight loss following gastric bypass 215 pounds. Morbid obesity due to excess calories, BMI 35.0. Highest weight 451 pounds. GASTROINTESTINAL: History of gastric bypass. History of cholecystectomy. Reports prior change in bowel habits. Has gastroesophageal reflux disease. ENDOCRINE: Has hypothyroidism. Denies any blood sugar glucose intolerance. PHYSICAL EXAM: VITALS: Reviewed CONSTITUTIONAL: Well developed and in no acute distress. EYES: Conjuctivae without sclera icterus. Extraocular movements grossly intact. Sunken eyes. HEAD, EARS, NOSE, THROAT: Moist buccal mucosa. Head is atraumatic, normocep halic. Hears conversational speech. No nasal drainage. RESPIRATORY: Non-labored respirations and equal bilateral excursions. No gross wheezes. CARDIOVASCULAR: Palpable 2+ radial pulses. ABDOMEN: Moderate-sized pannus. Mild tenderness left lower quadrant. No peritonitis MUSCULOSKELETAL: No clubbing cyanosis. SKIN: Warm and well perfused with good skin turgor. NEUROLOGIC: Cranial nerves II through XII grossly intact. No focal or lateralizing signs. PSYCH: Appropriate affect. Alert and oriented to person, place and time. Displays appropriate insight. CLINCAL LABS: Reviewed. Lipase is within normal limits. ASSESSMENT: 1. Dysphagia with atypical chest pain 2. History of gastric bypass 3. Lower abdominal pain with diverticulosis 4. 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 Upper endoscopy completed demonstrated presbyesophagus including esophageal and gastric stricture which may account for her atypical chest pain. 2. Patient is inquiring to have a colonoscopy however in the presence of recent abdominal pain without features of GI bleed and [place] computed tomography scan for colitis. Colonoscopy may be evaluated as an outpatient. 3. Start dysphagia diet. May start ground diet or pure diet due to esophageal dysmotility 4. May be discharged from a surgical standpoint once tolerating a dysphagia diet 5. Follow-up as outpatient Objective - Vital Signs Vital signs: Vital Signs Temp 98.4 F 01/23/22 07:17 Pulse 67 01/23/22 07:17 Resp 18 01/23/22 07:17 BP 125/72 01/23/22 07:17 Pulse Ox 95 01/23/22 07:17 FiO2 Intake & Output 01/22/22 01/23/22 01/23/22 18:59 06:59 18:59 Intake Total 250 200 Balance 250 200 Intake: IV 200 Oral 250 Other: # Voids 3 1 - Labs CBC & Chem 7: 01/22/22 06:57 01/22/22 06:57
--- NOTE | 2022-01-23 14:10 | P.PN ---
Subjective Progress Note Date: 01/23/22 Ongoing abd pain. Had EGD which showed presbyesophagus and esophageal stricture. Advance diet as tolerated with plan to dc tomorrow. Gen: awake, alert HEENT: normocephalic, atraumatic, good hearing acuity, moist mucous membranes Resp: good air exchange, breathing comfortably with no accessory muscle use CVS: good distal perfusion x 4, GI: soft, NTTP, ND : no SPT, no CVAT, hensley catheter not present MSK: no pitting edema, no clubbing Neuro: non-focal, moving all extremities Psych: cooperative, euthymic mood Assessment/plan: Chest pain, atypical -Admit to observation, telemetry -Cardiology consult -Trend troponins -Echo with good EF, no WMA -Aspirin, statin -TSH, A1c, lipid panel Abdominal pain -Surgery consult for EGD/colonoscopy -Tylenol when necessary Hypertension History of gastric bypass History of cholecystectomy -Home medications reviewed and reconciled Patient is full code DVT PPx heparin TID Objective - Vital Signs Vital signs: Vital Signs Temp 98.4 F 01/23/22 07:17 Pulse 67 01/23/22 07:17 Resp 18 01/23/22 07:17 BP 125/72 01/23/22 07:17 Pulse Ox 95 01/23/22 07:17 FiO2 Intake & Output 01/22/22 01/23/22 01/23/22 18:59 06:59 18:59 Intake Total 250 200 Balance 250 200 Intake: IV 200 Oral 250 Other: # Voids 3 1 - Labs CBC & Chem 7: 01/22/22 06:57 01/22/22 06:57
[2022-01-23] MEDS ORDERED: LACTULOSE 20 GM/30 ML CUP PO STA (15:46)
[2022-01-23] MEDS ORDERED: LACTULOSE 20 GM/30 ML CUP PO SCH (16:00)
[2022-01-23] MEDS: METOPROLOL TARTRATE 12.5 MG TAB PO SCH ×2 (16:50→20:19)
[2022-01-23] MEDS: cloNIDine HCL 0.1 MG TAB PO SCH ×2 (16:50→21:19)
[2022-01-23] MEDS: FOLIC ACID 1 MG TAB PO SCH (17:02)
[2022-01-23] MEDS: HYDROcodone/APAP 5-325MG 1 EACH TAB PO PRN ×2 (17:02→21:19)
[2022-01-23] MEDS: hydroCHLOROthiazide 12.5 MG CAP PO SCH (17:02)
[2022-01-23] MEDS: ASPIRIN 81 MG PO SCH (17:02)
[2022-01-23] MEDS: NALTREXONE HCL 50 MG TAB PO SCH ×2 (17:03→17:07)
[2022-01-23] MEDS: PANTOPRAZOLE 40 MG TABLET PO SCH (17:03)
[2022-01-23] MEDS: ATORVASTATIN 40 MG TAB PO SCH (20:19)
[2022-01-24 01:33] VITALS: RESP 18
[2022-01-24] MEDS: HYDROcodone/APAP 5-325MG 1 EACH TAB PO PRN ×3 (02:06→15:10)
[2022-01-24] MEDS: LEVOTHYROXINE 75 MCG TAB PO SCH (05:54)
[2022-01-24] MEDS: HEPARIN SODIUM,PORCINE/PF 5,000 UNIT/0.5 ML SYRINGE SQ SCH ×2 (07:34→15:38)
[2022-01-24] MEDS: PANTOPRAZOLE 40 MG TABLET PO SCH (07:34)
[2022-01-24] MEDS: hydroCHLOROthiazide 12.5 MG CAP PO SCH (07:35)
[2022-01-24] MEDS: METOPROLOL TARTRATE 12.5 MG TAB PO SCH (07:35)
[2022-01-24] MEDS: FOLIC ACID 1 MG TAB PO SCH (07:35)
[2022-01-24] MEDS: ASPIRIN 81 MG PO SCH (07:35)
[2022-01-24] MEDS: cloNIDine HCL 0.1 MG TAB PO SCH (07:35)
[2022-01-24] MEDS: NALTREXONE HCL 50 MG TAB PO SCH (07:35)
[2022-01-24] MEDS ORDERED: ERGOCALCIFEROL 1,250 MCG (50,000 IU) CAPSULE PO SCH (09:00)
--- NOTE | 2022-01-24 11:07 | P.PN ---
Subjective Progress Note Date: 01/24/22 Patient has a known history of hypertension hyperthyroidism DVT. She initially came into the hospital complaining of discomfort involving her left upper quadrant and left lower chest, with pain radiating toward the umbilical area. We were consulted to evaluate her for chest pain. Patient is seen resting comfortably in bed today she still complains of mild abdominal pain. She denies increased shortness of breath or chest pain. Patient underwent an EGD yesterday which showed presbyesophagus and esophageal stricture. And will follow-up outpatient for a colonoscopy. Patient is clear for discharge from a cardiac standpoint and we will follow her as an as-needed basis. Plan is for patient to discharge home tomorrow Objective - Vital Signs Vital signs: Vital Signs Temp 98.2 F 01/24/22 07:04 Pulse 75 01/24/22 07:04 Resp 18 01/24/22 07:04 BP 131/71 01/24/22 07:04 Pulse Ox 100 01/24/22 07:04 FiO2 Intake & Output 01/23/22 01/24/22 01/24/22 18:59 06:59 18:59 Intake Total 440 650 118 Balance 440 650 118 Intake: IV 200 Oral 240 650 118 Other: # Voids 4 - Exam PHYSICAL EXAM: VITAL SIGNS: Reviewed. GENERAL: Well-developed in no acute distress. HEENT: Head is normocephalic. Pupils are equal, round. Sclerae anicteric. Mucous membranes of the mouth are moist. NECK: Supple. No JVD or thyromegaly RESPIRATORY: Respirations even and unlabored. Lungs diminished to auscultation bilaterally. CARDIO: Regular rate and rhythm. S1 and S2 heard. No murmur or gallops. EXTREMITIES: Normal range of motion. No clubbing or cyanosis. Peripheral pulses intact. Negative for bilateral lower extremity edema NEURO: Orientated to person, time, mood is appropriate - Labs CBC & Chem 7: 01/22/22 06:57 01/22/22 06:57 Assessment and Plan Assessment: Noncardiac chest pain presbyesophagus and esophageal stricture Plan: Chest pain is atypical and cardiac causes have been ruled out. Echocardiogram has been reviewed troponins were negative 3 Continue with all current cardiac medications Continue with telemetry monitoring Continue with strict I's and O's Patient is clear for discharge, will follow on an as-needed basis until discharge The above impression and plan of care have been discussed and directed by the signing physician. Katiana Taylor, nurse practitioner, acting as scribe for signing physician.
[2022-01-24] MEDS ORDERED: bisacodyL 5 MG TABLET.DR PO PRN (12:12)
[2022-01-24] MEDS ORDERED: LACTULOSE 20 GM/30 ML CUP PO ONE (12:21)
[2022-01-24 14:33] VITALS: BP 120/75; PULSE 69; TEMP 98
--- NOTE | 2022-01-24 16:29 | P.DS ---
Providers Date of admission: 01/21/22 16:54 Expected date of discharge: 01/24/22 Attending physician: Bi Doe MD Consults: 01/21/22 17:36 Consult Physician Routine Consulting Provider: Minal Dumont Consult Reason/Comments: Abd pain, hx gastric bypass Do you want consulting provider notified?: Yes Primary care physician: Lukasjasmin Burrowspierre [facility] Course: Chest pain, atypical Abdominal pain Hypertension History of gastric bypass History of cholecystectomy 76 year old woman with history of hypertension, gastric bypass, cholecystectomy presented for abdominal pain. In the ER, patient is afebrile, 111/57, heart rate 62, 97% on room air. CBC is remarkable for hemoglobin of 9.9. Chemistries are remarkable for sodium of 134, BUN of 19, creatinine of 1.4. LFTs are unremarkable. Initial troponin is negative. Lipase is 110. CTA of the chest is negative. CT of the abdomen/pelvis is negative for kidney stones, no inflammation, But does have mild amount of ascites. EKG shows sinus bradycardia. Venous Doppler is negative for DVT. Pt was cleared by cardiology for outpatient stress test. Pt was seen by surgery who did EGD demonstrating presbyesophagus and did balloon dilation of esophagus. Pt still w abdominal pain on discharge, but improved overall. She will f/u with surgery as outpatient for colonoscopy. Gen: awake, alert HEENT: normocephalic, atraumatic, good hearing acuity, moist mucous membranes Resp: good air exchange, breathing comfortably with no accessory muscle use CVS: good distal perfusion x 4, GI: soft, NTTP, ND : no SPT, no CVAT, hensley catheter not present MSK: no pitting edema, no clubbing Neuro: non-focal, moving all extremities Psych: cooperative, euthymic mood Patient Condition at Discharge: Stable Plan - Discharge Summary Discharge Rx Participant: No New Discharge Prescriptions: New Acetaminophen Tab [Tylenol] 650 mg PO Q6HR PRN tab PRN Reason: Mild Pain Or Fever > 100.5 Continue Levothyroxine Sodium [Synthroid] 150 mcg PO DAILY Cyanocobalamin [Vitamin B-12 Injection] 1,000 mcg SQ QMONTHLY Meclizine HCl 25 mg PO BID PRN PRN Reason: NAUSEA/DIZZINESS Ergocalciferol (Vitamin D2) [Drisdol (50,000 Iu)] 1,250 mcg PO MO Albuterol Sulfate [Ventolin HFA] 2 puff INHALATION RT-Q6H PRN PRN Reason: Shortness Of Breath Pantoprazole [Protonix] 40 mg PO DAILY hydroCHLOROthiazide [Hydrodiuril] 12.5 mg PO DAILY cloNIDine HCL [Catapres] 0.1 mg PO BID Naltrexone HCl [Revia] 50 mg PO DAILY Folic Acid 1 mg PO DAILY Discontinued Sulfamethox-Tmp 800-160Mg [Bactrim DS 800-160 mg] 1 tab PO BID Discharge Medication List Albuterol Sulfate [Ventolin HFA] 2 puff INHALATION RT-Q6H PRN 01/21/22 [History] Cyanocobalamin [Vitamin B-12 Injection] 1,000 mcg SQ QMONTHLY 01/21/22 [History] Ergocalciferol (Vitamin D2) [Drisdol (50,000 Iu)] 1,250 mcg PO MO 01/21/22 [History] Folic Acid 1 mg PO DAILY 01/21/22 [History] Levothyroxine Sodium [Synthroid] 150 mcg PO DAILY 01/21/22 [History] Meclizine HCl 25 mg PO BID PRN 01/21/22 [History] Naltrexone HCl [Revia] 50 mg PO DAILY 01/21/22 [History] Pantoprazole [Protonix] 40 mg PO DAILY 01/21/22 [History] cloNIDine HCL [Catapres] 0.1 mg PO BID 01/21/22 [History] hydroCHLOROthiazide [Hydrodiuril] 12.5 mg PO DAILY 01/21/22 [History] Acetaminophen Tab [Tylenol] 650 mg PO Q6HR PRN tab 01/24/22 [Rx] Follow up Appointment(s)/Referral(s): Lukas Graves MD [Primary Care Provider] - 1-2 days Minal Dumont MD [STAFF PHYSICIAN] - 02/08/22 Patient Instructions/Handouts: Chronic Dysphagia (GEN), Level 2 National Dysphagia Diet (DC), Dysphagia (GEN) Discharge Disposition: HOME SELF-CARE
[2022-02-03] MEDS ORDERED: CYANOCOBALAMIN 1,000 MCG/ML 1 ML VIAL SQ SCH (09:00)
== END 2022-01-24 16:15 | disposition home or self-care (01) ==
LOC: EC 11:39 → 6NMEDSUR 16:54
PROVIDERS: ADMIT Internal Medicine; ATTEND Internal Medicine
DX: R07.89 Other chest pain (principal); K22.2 Esophageal obstruction; K22.4 Dyskinesia of esophagus; K22.89 Other specified disease of esophagus; K95.89 Other complications of other bariatric procedure; K21.00 Gastro-esophageal reflux disease with esophagitis, without bleeding; I10 Essential (primary) hypertension; R91.1 Solitary pulmonary nodule; K57.30 Diverticulosis of large intestine without perforation or abscess without bleeding; R18.8 Other ascites; R00.1 Bradycardia, unspecified; E03.9 Hypothyroidism, unspecified; J45.909 Unspecified asthma, uncomplicated; D64.9 Anemia, unspecified; I34.0 Nonrheumatic mitral (valve) insufficiency; E66.01 Morbid (severe) obesity due to excess calories; Z68.35 Body mass index [BMI] 35.0-35.9, adult; Z79.890 Hormone replacement therapy; Z79.899 Other long term (current) drug therapy; Z88.8 Allergy status to other drugs, medicaments and biological substances; Z91.048 Other nonmedicinal substance allergy status; Z90.49 Acquired absence of other specified parts of digestive tract; Z90.710 Acquired absence of both cervix and uterus; Z95.828 Presence of other vascular implants and grafts; Z98.84 Bariatric surgery status; Z86.718 Personal history of other venous thrombosis and embolism; Z98.890 Other specified postprocedural states
CPT/HCPCS: 96376 ×3; 96361 ×3; 96372 ×2; 96375; 96374; 99285; 36415; 93005; 93306; 84439; 80061; 80053; 80048; 84443; 82150; 83690; 83735 ×2; 84484 ×2; 85025 ×2; 85610; 85730; 81001; 83036; 76705; 71275; 74177; 43245; 43249; G0378 ×4; J2270; J2704; J1170 ×2; Q9967; J1644 ×3; C1726

== ENCOUNTER 2022-01-26 14:07 | Inpatient (IN) | payer MEDICARE ==
[2022-01-26] MEDS ORDERED: SODIUM CHLORIDE 0.9% 500 ML 500 ML IV STA (15:06)
[2022-01-26] MEDS ORDERED: KETOROLAC 15 MG/ML 1 ML VIAL IVP STA (15:33)
[2022-01-26 15:53] LABS: Anisocytosis Slight; Basophils # (A) 0.1 k/uL (0-0.2); Basophils % (A) 1 %; Eosinophils # (A) 0.3 k/uL (0-0.7); Eosinophils % (A) 3 %; HCT 36.3 % (34.0-46.0); HGB 10.9 gm/dL (11.4-16.0); Hypochromasia Slight; Lymphocytes # (A) 0.6 k/uL (1.0-4.8); Lymphocytes % (A) 6 %; MCH 24.5 pg (25.0-35.0); MCV 81.9 fL (80.0-100.0); Mean Platelet Volume 8.8; Microcytosis Slight; Monocytes # (A) 0.6 k/uL (0-1.0); Monocytes % (A) 6 %; Neutrophils # (A) 8.7 k/uL (1.3-7.7); Neutrophils % (A) 84 %; Platelet Count 287 k/uL (150-450); RBC 4.44 m/uL (3.80-5.40); RDW 17.4 % (11.5-15.5); WBC 10.3 k/uL (3.8-10.6)
--- NOTE | 2022-01-26 15:54 | ED ---
General Adult HPI - General Chief complaint: Abdominal Pain Stated complaint: abd pain Time Seen by Provider: 01/26/22 14:10 Source: patient, RN notes reviewed, old records reviewed Mode of arrival: EMS Limitations: no limitations - History of Present Illness Initial comments: This is a 76-year-old female who presents emergency Department with abdominal pain for 2 and half weeks. Patient states she was here recently and had Dr. Matos see her and do some dilation of her previous bariatric surgery. Patient states that relieved the upper abdominal pain however she still has left-sided abdominal pain. Patient states she's nauseated has vomited but there is no diarrhea. Patient denies any fever chills. Patient denies any chest pain difficulty breathing shortness of breath. Patient does any dysuria hematuria urinary frequency. - Related Data Home Medications Medication Instructions Recorded Confirmed Albuterol Sulfate [Ventolin HFA] 2 puff INHALATION RT-Q6H PRN 01/21/22 01/26/22 Cyanocobalamin [Vitamin B-12 1,000 mcg SQ QMONTHLY 01/21/22 01/26/22 Injection] Ergocalciferol (Vitamin D2) 1,250 mcg PO MO 01/21/22 01/26/22 [Drisdol (50,000 Iu)] Folic Acid 1 mg PO DAILY 01/21/22 01/26/22 Levothyroxine Sodium [Synthroid] 150 mcg PO DAILY 01/21/22 01/26/22 Meclizine HCl 25 mg PO BID PRN 01/21/22 01/26/22 Naltrexone HCl [Revia] 50 mg PO DAILY 01/21/22 01/26/22 Pantoprazole [Protonix] 40 mg PO DAILY 01/21/22 01/26/22 cloNIDine HCL [Catapres] 0.1 mg PO BID 01/21/22 01/26/22 hydroCHLOROthiazide [Hydrodiuril] 12.5 mg PO DAILY 01/21/22 01/26/22 Previous Rx's Medication Instructions Recorded Acetaminophen Tab [Tylenol] 650 mg PO Q6HR PRN tab 01/24/22 Allergies Allergy/AdvReac Type Severity Reaction Status Date / Time nickel Allergy Rash/Hives Verified 01/26/22 15:53 ranitidine [From Zantac] Allergy Swelling Verified 01/26/22 15:53 Review of Systems ROS Statement: Those systems with pertinent positive or pertinent negative responses have been documented in the HPI. ROS Other: All systems not noted in ROS Statement are negative. Past Medical History Past Medical History: Hypertension History of Any Multi-Drug Resistant Organisms: None Reported Past Surgical History: Appendectomy, Cholecystectomy, Hernia Repair, Hysterectomy Additional Past Surgical History / Comment(s): gastro bypass Past Psychological History: No Psychological Hx Reported Smoking Status: Never smoker Past Alcohol Use History: Occasional Past Drug Use History: None Reported General Exam - General Exam Comments Initial Comments: GENERAL: Patient is well-developed and well-nourished. Patient is nontoxic and well- hydrated and is in mild distress. ENT: Neck is soft and supple. No significant lymphadenopathy is noted. Oropharynx is clear. Moist mucous membranes. Neck has full range of motion without eliciting any pain. EYES: The sclera were anicteric and conjunctiva were pink and moist. Extraocular movements were intact and pupils were equal round and reactive to light. Eyelids were unremarkable. PULMONARY: Unlabored respirations. Good breath sounds bilaterally. No audible rales rhonchi or wheezing was noted. CARDIOVASCULAR: There is a regular rate and rhythm without any murmurs gallops or rubs. ABDOMEN: Mild left quadrant abdominal pain SKIN: Skin is clear with no lesions or rashes and otherwise unremarkable. NEUROLOGIC: Patient is alert and oriented x3. Cranial nerves II through XII are grossly intact. Motor and sensory are also intact. Normal speech, volume and content. Symmetrical smile. MUSCULOSKELETAL: Normal extremities with adequate strength and full range of motion. LYMPHATICS: No significant lymphadenopathy is noted PSYCHIATRIC: Normal psychiatric evaluation. Limitations: no limitations Course Vital Signs 01/26/22 14:08 Temperature 98.5 F Pulse Rate 64 Respiratory 18 Rate Blood Pressure 131/65 O2 Sat by Pulse 99 Oximetry Medical Decision Making - Medical Decision Making X-ray shows a picture of an ileus versus partial small bowel structures. Patient states she hasn't had any passage of either gas or stool today. Dr. Matos saw the patient emergency department wanted the patient admitted to her service. - Lab Data Result diagrams: 01/26/22 15:31 01/26/22 15:31 Lab Results 01/26/22 01/26/22 Range/Units 15:31 15:31 WBC 10.3 (3.8-10.6) k/uL RBC 4.44 (3.80-5.40) m/uL Hgb 10.9 L (11.4-16.0) gm/dL Hct 36.3 (34.0-46.0) % MCV 81.9 (80.0-100.0) fL MCH 24.5 L (25.0-35.0) pg MCHC 30.0 L (31.0-37.0) g/dL RDW 17.4 H (11.5-15.5) % Plt Count 287 (150-450) k/uL MPV 8.8 Neutrophils % 84 % Lymphocytes % 6 % Monocytes % 6 % Eosinophils % 3 % Basophils % 1 % Neutrophils # 8.7 H (1.3-7.7) k/uL Lymphocytes # 0.6 L (1.0-4.8) k/uL Monocytes # 0.6 (0-1.0) k/uL Eosinophils # 0.3 (0-0.7) k/uL Basophils # 0.1 (0-0.2) k/uL Hypochromasia Slight Anisocytosis Slight Microcytosis Slight Sodium 135 L (137-145) mmol/L Potassium 3.3 L (3.5-5.1) mmol/L Chloride 100 (98-107) mmol/L Carbon Dioxide 26 (22-30) mmol/L Anion Gap 9 mmol/L BUN 18 H (7-17) mg/dL Creatinine 1.10 H (0.52-1.04) mg/dL Est GFR (CKD-EPI)AfAm 57 (>60 ml/min/1.73 sqM) Est GFR (CKD-EPI)NonAf 50 (>60 ml/min/1.73 sqM) Glucose 97 (74-99) mg/dL Calcium 7.5 L (8.4-10.2) mg/dL Total Bilirubin 0.4 (0.2-1.3) mg/dL AST 20 (14-36) U/L ALT 6 (4-34) U/L Alkaline Phosphatase 73 (38-126) U/L Total Protein 6.3 (6.3-8.2) g/dL Albumin 3.1 L (3.5-5.0) g/dL Amylase 42 (30-110) U/L Lipase 49 (23-300) U/L Disposition Clinical Impression: Partial small bowel obstruction Disposition: ADMITTED IP TO THIS HOSP Referrals: Lukas Graves MD [Primary Care Provider] - 1-2 days Time of Disposition: 17:39
[2022-01-26 16:03] LABS: Albumin 3.1 g/dL (3.5-5.0); Calcium 7.5 mg/dL (8.4-10.2); Potassium 3.3 mmol/L (3.5-5.1); Total Bilirubin 0.4 mg/dL (0.2-1.3); Total Protein 6.3 g/dL (6.3-8.2)
--- NOTE | 2022-01-26 16:06 | XR ---
KUB HISTORY: Abdominal pain Frontal KUB and 2 images, comparison CT scan 01/21/2022 Surgical clips consistent with postcholecystectomy change are noted, inferior vena cava filter is in place. There are overlying artifacts. Postop changes are noted to the anterior abdominal wall, multip le riri are present. There are air-fluid levels without bowel distention. No evident pneumoperiton eum. Degenerative disc changes are present in the visualized spine, there is a spinal curvature. Lung bases are clear. No pathologic calcification evident. IMPRESSION: Correlate for enteritis, ileus, follow-up as indicated
[2022-01-26] MEDS ORDERED: SODIUM CHLORIDE 0.9% 1,000 ML IV ONE (17:40)
--- NOTE | 2022-01-26 17:54 | P.GSHP ---
History of Present Illness H&P Date: 01/26/22 REASON FOR ADMISSION: Chronic abdominal pain HISTORY OF PRESENT ILLNESS: The patient is a 76-year-old female recently hospitalized 1 week ago from 01/21/2022 to 01/24/2022 for atypical chest pain wi th epigastric abdominal pain. She had extensive workup including cardiology consultation with echocardiogram, upper endoscopy, CT of the abdomen and pelvis for atypical chest pain including abdominal pain. Her cardiology results were otherwise unremarkable. She had an upper endoscopy with dilation to address her atypical chest pain due to dysphagia. Patient reported she was doing well. Initial epigastric abdominal pain resolved. Patient reported chronic generalized and left lower quadrant abdominal pain beyond 2-3 weeks for which computed tomography scan was otherwise unremarkable for diverticulitis, mass, or reasons for her abdominal pain. Patient was discharged 01/24/2022. She then presented back to the emergency room 1 day later complaining of persistent left lower quadrant abdominal pain. Due to her personal history of multiple abdominal surgeries including gastric bypass and bowel resection for bowel ischemia, additional abdominal films obtained and reviewed. Clinically, patient presents with bowel obstruction with complaints of decreased oral intake, constipation, including abdominal pain and history of multiple surgeries, hence her admission. PAST MEDICAL HISTORY: See list and reviewed PAST SURGICAL HISTORY: See list and reviewed MEDICATIONS: See list and reviewed ALLERGIES: See list and reviewed SOCIAL HISTORY: See list and reviewed FAMILY HISTORY: See list and reviewed REVIEW OF ORGAN SYSTEMS: CONSTITUTIONAL: No fevers or chills. Intentional weight loss following gastric bypass 215 pounds. Morbid obesity due to excess calories, BMI 35.0. Initially over 420 pounds. EYES: Denies any trouble with vision. No glasses. HEENT: No difficulties with hearing. No nosebleeds. History of difficulty swallowing. RESPIRATORY: Has asthma. CARDIOVASCULAR: Presented with atypical chest pain with negative cardiac workup less than 1 week ago. Has hypertension. GASTROINTESTINAL: History of cholecystectomy. Reports prior change in bowel habits. Has gastroesophageal reflux disease. Had micro-pouch gastric bypass done in [place] since 2003, almost 20 years ago. GENITOURINARY: Denies any blood in urine or increased urinary frequency. NEUROLOGICAL: Denies any numbness or tingling along the distal extremities. No seizure disorders or headaches. MUSCULOSKELETAL: Has back pain, stiffness or joint arthritis. SKIN: No current skin cancer. No rash. PSYCHIATRIC: Denies current depression or suicidal thoughts. ENDOCRINE: Has hypothyroidism. Denies any blood sugar glucose intolerance. HEME/LYMPHATIC: Denies any lumps and bumps around the neck. No recent deep venous thrombosis. Has IVC filter. ALLERGY/IMMUNOLOGY: No immunoglobulin therapy. No immune deficiencies. BREAST: Denies current breast lumps, pain or nipple discharge. PHYSICAL EXAM: VITALS: Reviewed CONSTITUTIONAL: Well developed and in no acute distress. EYES: Conjuctivae without sclera icterus. Extraocular movements grossly intact. HEAD, EARS, NOSE, THROAT: Moist buccal mucosa. Head is atraumatic, normocephalic. Hears conversational speech. No nasal drainage. NECK: Supple. No JV distention. No thyroidomegaly. RESPIRATORY: Non-labored respirations and equal bilateral excursions. No gross wheezes. CARDIOVASCULAR: 2+ radial pulses. ABDOMEN: Moderate-sized pannus. No diffuse peritonitis. Localized tenderness left lower quadrant. LYMPH: No gross neck lymphadenopathy. MUSCULOSKELETAL: No clubbing cyanosis. SKIN: Warm and well perfused with good skin turgor. NEUROLOGIC: Cranial nerves II through XII grossly intact. No focal or lateralizing signs. PSYCH: Appropriate affect. Alert and oriented to person, place and time. Displays appropriate insight. CLINCAL LABS: Reviewed. Hemoglobin low 10.9 increased from 9.1 from prior admission with anemia. WBC normal at 10.3. Creatinine improved to 1.1 from 1.42 during prior admission. STUDIES: Plain film abdominal x-ray demonstrates bowel gas within small bowel however absent within the rectum. This is my independent interpretation. REPORT: Plain film abdominal x-ray demonstrates enteritis versus ileus. PREVIOUS RECORDS: IMAGING: Independently reviewed from prior admission. CT of the abdomen and pelvis without internal hernia or mesenteric swirl or bowel obstruction. Features consistent with gastric bypass identified. This is my independent interpretation. Cholecystectomy clips also identified of the right upper quadrant. Abdominal ascites identified. Right lobe of the liver enlarged. RADIOLOGY: Report reviewed abdomen and pelvis from prior admission CT demonstrating diverticulosis with small amount of ascites, abdominal wall clips, IVC filter. EGD FINDINGS 01/23/22: Lower esophageal stenosis dilated 54-Cambodian rigid dilator Diaphragmatic hiatus at 37 cm from the incisors Squamocolumnar junction 38 cm from the incisors. No acute gastric ulcerations identified. LA grade B erosive esophagitis Stricture of approximately 12 mm encountered. No chronic gastrojejunal ulceration encountered. Successful balloon dilatation to 20 mm. Features of presbyesophagus ASSESSMENT: 1. Chronic generalized and left lower quadrant abdominal pain with history of bowel obstruction 2. History of gastric bypass 3. Chronic anemia due to intestinal malabsorption 4. Morbid obesity due to excess calories, BMI 35.0 5. Ileus with enteritis 6. Hypertensive heart disease 7. Hypothyroidism 8. Asthma 9. Gastroesophageal reflux disease 10. History of gastrojejunal stricture with partial obstruction PLAN: 1. Patient seen and evaluated. With her personal history of multiple abdominal surgeries, gastric bypass and bowel resection for bowel ischemia, surgical intervention was described with diagnostic laparoscopy with lysis of adhesions 2. Benefits and risks were reviewed including possibility of no significant pathology to account for her symptoms in addition to persistent abdominal pain following surgery. Patient agreeable to proceed with surgery. 3. Inpatient hospitalization described greater than 2 nights 4. Medicine consultation for medical management and recent admission reviewed. 5. DVT prophylaxis with heparin 6. IV fluid hydration 7. Nothing by mouth after midnight ADVANCE DIRECTIVE: Past Medical History Past Medical History: Hypertension History of Any Multi-Drug Resistant Organisms: None Reported Past Surgical History: Appendectomy, Cholecystectomy, Hernia Repair, Hysterectomy Additional Past Surgical History / Comment(s): gastro bypass Past Psychological History: No Psychological Hx Reported Smoking Status: Never smoker Past Alcohol Use History: Occasional Past Drug Use History: None Reported Medications and Allergies Home Medications Medication Instructions Recorded Confirmed Type Albuterol Sulfate [Ventolin HFA] 2 puff INHALATION RT-Q6H PRN 01/21/22 01/26/22 History Cyanocobalamin [Vitamin B-12 1,000 mcg SQ QMONTHLY 01/21/22 01/26/22 History Injection] Ergocalciferol (Vitamin D2) 1,250 mcg PO MO 01/21/22 01/26/22 History [Drisdol (50,000 Iu)] Folic Acid 1 mg PO DAILY 01/21/22 01/26/22 History Levothyroxine Sodium [Synthroid] 150 mcg PO DAILY 01/21/22 01/26/22 History Meclizine HCl 25 mg PO BID PRN 01/21/22 01/26/22 History Naltrexone HCl [Revia] 50 mg PO DAILY 01/21/22 01/26/22 History Pantoprazole [Protonix] 40 mg PO DAILY 01/21/22 01/26/22 History cloNIDine HCL [Catapres] 0.1 mg PO BID 01/21/22 01/26/22 History hydroCHLOROthiazide [Hydrodiuril] 12.5 mg PO DAILY 01/21/22 01/26/22 History Acetaminophen Tab [Tylenol] 650 mg PO Q6HR PRN tab 01/24/22 01/26/22 Rx Acetaminophen Tab [Tylenol Tab] 1,000 mg PO Q6HR PRN #30 tablet 01/28/22 Rx Simethicone [Gas-X] 125 mg PO AC-TID PRN #20 capsule 01/28/22 Rx Allergies Allergy/AdvReac Type Severity Reaction Status Date / Time nickel Allergy Rash/Hives Verified 01/26/22 15:53 ranitidine [From Zantac] Allergy Swelling Verified 01/26/22 15:53 Surgical - Exam Vital Signs Temp Pulse Resp BP Pulse Ox 98.5 F 64 18 131/65 99 01/26/22 14:08 01/26/22 14:08 01/26/22 14:08 01/26/22 14:08 01/26/22 14:08 Results - Labs 02/01/22 09:57 02/02/22 12:27 Abnormal Lab Results - Last 24 Hours (Table) 01/26/22 01/26/22 Range/Units 15:31 15:31 Hgb 10.9 L (11.4-16.0) gm/dL MCH 24.5 L (25.0-35.0) pg MCHC 30.0 L (31.0-37.0) g/dL RDW 17.4 H (11.5-15.5) % Neutrophils # 8.7 H (1.3-7.7) k/uL Lymphocytes # 0.6 L (1.0-4.8) k/uL Sodium 135 L (137-145) mmol/L Potassium 3.3 L (3.5-5.1) mmol/L BUN 18 H (7-17) mg/dL Creatinine 1.10 H (0.52-1.04) mg/dL Calcium 7.5 L (8.4-10.2) mg/dL Albumin 3.1 L (3.5-5.0) g/dL Diabetes panel 01/26/22 Range/Units 15:31 Sodium 135 L (137-145) mmol/L Potassium 3.3 L (3.5-5.1) mmol/L Chloride 100 (98-107) mmol/L Carbon Dioxide 26 (22-30) mmol/L BUN 18 H (7-17) mg/dL Creatinine 1.10 H (0.52-1.04) mg/dL Glucose 97 (74-99) mg/dL Calcium 7.5 L (8.4-10.2) mg/dL AST 20 (14-36) U/L ALT 6 (4-34) U/L Alkaline Phosphatase 73 (38-126) U/L Total Protein 6.3 (6.3-8.2) g/dL Albumin 3.1 L (3.5-5.0) g/dL Calcium panel 01/26/22 Range/Units 15:31 Calcium 7.5 L (8.4-10.2) mg/dL Albumin 3.1 L (3.5-5.0) g/dL Pituitary panel 01/26/22 Range/Units 15:31 Sodium 135 L (137-145) mmol/L Potassium 3.3 L (3.5-5.1) mmol/L Chloride 100 (98-107) mmol/L Carbon Dioxide 26 (22-30) mmol/L BUN 18 H (7-17) mg/dL Creatinine 1.10 H (0.52-1.04) mg/dL Glucose 97 (74-99) mg/dL Calcium 7.5 L (8.4-10.2) mg/dL Adrenal panel 01/26/22 Range/Units 15:31 Sodium 135 L (137-145) mmol/L Potassium 3.3 L (3.5-5.1) mmol/L Chloride 100 (98-107) mmol/L Carbon Dioxide 26 (22-30) mmol/L BUN 18 H (7-17) mg/dL Creatinine 1.10 H (0.52-1.04) mg/dL Glucose 97 (74-99) mg/dL Calcium 7.5 L (8.4-10.2) mg/dL Total Bilirubin 0.4 (0.2-1.3) mg/dL AST 20 (14-36) U/L ALT 6 (4-34) U/L Alkaline Phosphatase 73 (38-126) U/L Total Protein 6.3 (6.3-8.2) g/dL Albumin 3.1 L (3.5-5.0) g/dL
[2022-01-26] MEDS ORDERED: NALOXONE 0.4 MG/ML 1 ML VIAL IV PRN (18:03)
[2022-01-26] MEDS ORDERED: MECLIZINE 25 MG TAB PO PRN (18:06)
[2022-01-26] MEDS: HYDROmorphone 1 MG/ML 1 ML SYRINGE IVP PRN ×2 (18:25→21:36)
[2022-01-26] MEDS: cloNIDine HCL 0.1 MG TAB PO SCH (20:49)
[2022-01-26] MEDS: HEPARIN SODIUM,PORCINE/PF 5,000 UNIT/0.5 ML SYRINGE SQ SCH (20:50)
[2022-01-26] MEDS: ACETAMINOPHEN IV (For NPO) 1,000 MG in EMPTY BAG 1 BAG IVPB SCH (23:27)
[2022-01-26 23:47] LABS: Appearance,Urine Clear (Clear); Bilirubin,Urine 1+ (Negative); Blood,Urine Negative (Negative); Color,Urine Yellow; Glucose,Urine (UA) Negative (Negative); Hyaline Casts,Urine 7 /lpf (0-2); Ketones,Urine 1+ (Negative); Leukocyte Esterase,Urine Small (Negative); Mucus,Urine Few /hpf; Nitrite,Urine Negative (Negative); PH, Urine 5.5 (5.0-8.0); Protein,Urine Trace (Negative); RBC,Urine 1 /hpf (0-5); Specific Gravity,Urine 1.026 (1.001-1.035); Squamous Epithelial Cell,Urine 3 /hpf (0-4); Urobilinogen,Urine <2.0 mg/dL (<2.0); WBC,Urine 2 /hpf (0-5)
[2022-01-27] MEDS: HYDROmorphone 1 MG/ML 1 ML SYRINGE IVP PRN ×6 (00:23→22:24)
[2022-01-27] MEDS: ACETAMINOPHEN IV (For NPO) 1,000 MG in EMPTY BAG 1 BAG IVPB SCH ×3 (06:04→17:08)
[2022-01-27] MEDS: cloNIDine HCL 0.1 MG TAB PO SCH ×2 (07:16→22:35)
[2022-01-27] MEDS: PANTOPRAZOLE 40 MG/10 ML VIAL IVP SCH (08:14)
[2022-01-27 09:00] LABS: Basophils # (A) 0.07 X 10*3/uL (0.00-0.10); Basophils % (A) 0.9 %; Eosinophils % (A) 5.1 %; HCT 34.4 % (37.2-46.3); HGB 10.2 g/dL (12.0-15.0); Immature Grans, Automated 0.8 %; Lymphocytes # (A) 0.93 X 10*3/uL (0.90-5.00); Lymphocytes % (A) 11.9 %; MCH 23.9 pg (27.0-32.0); MCHC 29.7 g/dL (32.0-37.0); MCV 80.8 fL (80.0-97.0); Mean Platelet Volume 11.4 fL (9.5-12.2); Monocytes # (A) 0.83 X 10*3/uL (0.20-1.00); Monocytes % (A) 10.6 %; NRBC Per 100 WBC 0 /100 WBCS (0.0-0.0); Neutrophils # (A) 5.54 X 10*3/uL (1.80-7.70); Neutrophils % (A) 70.7 %; Platelet Count 291 X 10*3/uL (140-440); RBC 4.26 X 10*6/uL (4.10-5.20); RDW 18.6 % (11.5-14.5); WBC 7.83 X 10*3/uL (4.50-10.00)
[2022-01-27 09:11] LABS: African American GFR (CKD) 49.6 (60.0-200.0); Anion Gap 12.1 mmol/L (10.00-18.00); BUN/Creat Ratio 13.95 Ratio (12.00-20.00); Blood Urea Nitrogen 17.3 mg/dL (9.0-27.0); Calcium 8.4 mg/dL (8.7-10.3); Carbon Dioxide 26.8 mmol/L (20.0-27.5); Magnesium 2.1 mg/dL (1.5-2.4); Non-African American GFR(CKD) 42.8 (60.0-200.0); Potassium 3.6 mmol/L (3.5-5.5)
[2022-01-27] MEDS: HEPARIN SODIUM,PORCINE/PF 5,000 UNIT/0.5 ML SYRINGE SQ SCH ×2 (09:34→22:35)
[2022-01-27] MEDS ORDERED: SODIUM CHLORIDE 0.9% 1,000 ML IV ONE (10:03)
[2022-01-27] MEDS ORDERED: HEPARIN SODIUM,PORCINE 5,000 UNIT/ML 1 ML VIAL ONE (18:30)
[2022-01-27] MEDS ORDERED: MIDAZOLAM 2 MG/2 ML VIAL ONE (18:30)
[2022-01-27] MEDS ORDERED: ROCURONIUM 10 MG/ML (5 ML VIAL) IV ONE (18:30)
[2022-01-27] MEDS ORDERED: PHENYLEPHRINE-0.9% NACL SYG 1,000 MCG/10 ML SYRINGE ONE (18:30)
[2022-01-27] MEDS ORDERED: PROPOFOL 10 MG/ML 20 ML VIAL IV ONE (18:30)
[2022-01-27] MEDS ORDERED: GLYCOPYRROLATE 0.2 MG/ML 2 ML VIAL ONE (18:30)
[2022-01-27] MEDS ORDERED: NEOSTIGMINE 1 MG/ML 10 ML VIAL ONE (18:30)
[2022-01-27] MEDS ORDERED: KETAMINE 10 MG/ML 20 ML VIAL ONE (18:30)
[2022-01-27] MEDS ORDERED: LIDOCAINE 2% INJ 20 MG/ML (2 ML VIAL) ONE (18:30)
[2022-01-27] MEDS ORDERED: SUCCINYLCHOLINE CHLORIDE 100 MG/5 ML SYR IV ONE (18:30)
[2022-01-27] MEDS ORDERED: IV FLUID CONTINUATION 1,000 ML IV ONE (18:33)
[2022-01-27] MEDS ORDERED: LIDOCAINE 0.5%-EPI 1:200,000 50 ML VIAL SQ ONE (18:57)
--- NOTE | 2022-01-27 19:50 | P.OP ---
Date of Procedure: 01/27/22 Description of Procedure: SURGEON: DEL HILL MD PREOPERATIVE DIAGNOSES: 1. Left lower quadrant abdominal pain 2. History of multiple abdominal surgeries with peritoneal adhesions 3. History of gastric bypass for morbid obesity 4. Morbid obesity due to excess calories, BMI 35.0 5. Hypothyroidism 6. Hypertensive heart disease 7. Asthma 8. History of IVC filter 9. Chronic anemia POSTOPERATIVE DIAGNOSES: 1. Left lower quadrant abdominal pain 2. History of multiple abdominal surgeries 3. History of gastric bypass for morbid obesity 4. Morbid obesity due to excess calories, BMI 35.0 5. Hypothyroidism 6. Hypertensive heart disease 7. Asthma 8. History of IVC filter 9. Chronic anemia 10. Abdominal ascites 11. 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 Robotic-assisted da Deangelo Xi laparoscopic with lysis of adhesions 2. Omental excisional biopsy for pseudomyxoma peritonei 3. Aaspiration of peritoneal fluid/ascites for cell cytology ESTIMATED BLOOD LOSS: 5 mL. SPECIMENS REMOVED: (Excisional biopsy of the omentum, ascites for cell cytology) COMPLICATIONS: None. Condition: stable Disposition: floor Operative Findings: 1. Abdominal ascites over 1000 mL removed 2. Pseudomyxoma peritonei appearance involving the greater omentum to the abdominal wall adherent with focal adhesion of small bowel to left lower quadrant and location of patient's pain 3. No gross metastatic lesions of the liver 4. Excision of adhesion of the left lower quadrant abdominal wall releasing small bowel performed INDICATIONS: The patient is a 76year-old female who presents with moderate to severe left lower quadrant abdominal pain. The abdomen at the location of pain was marked with a indelible marker. Surgical intervention with diagnostic laparoscopy, lysis of adhesions were described. Informed consent was obtained. Robotic assisted laparoscopic approach was described. Benefits and risks of the procedure including but not limited to bleeding, infection, injury to the small intestine, including persistent abdominal pain were described. Informed consent was obtained. DESCRIPTION OF PROCEDURE: Patient was brought to the operating room, placed in supine position. After general induction, the abdomen had been prepped and draped in standard sterile fashion. The robotic da Deangelo XI system was primed. After a timeout protocol was performed, the patient had been prepped and draped in standard sterile fashion. The robot was docked along the left lateral abdomen. Please note prior to docki ng of the robot; however, a 5 mm 0 degrees laparoscopic trocar entry was performed along the left upper quadrant. Next, three 8 mm robotic ports were placed along the right lateral abdominal wall. Well-healed midline incision was identified with absence of umbilicus. Please note that the ports were placed at least 10 to 15 cm away from the target anatomy. Diagnosed laparoscopy demonstrated dense adhesions along the midline including of the omentum densely adhered to the abdominal wall with mucinous features along the peritoneum including along the small bowels suspicious for malignancy such as pseudomyxoma peritonei. Moderate intra-abdominal ascites were identified. Small bowel was encased in omentum at the left lower quadrant at the patient's location of pain. Instruments including graspers, suction orthodontic lab technician and vessel sealer were interchanged by the certified pharmacist assistant. I had sat at the console. Using vessel sealer and blunt dissection, attention was brought to the left lower quadrant where the adherent small bowel encased in omentum was carefully dissected free using blunt dissection including vessel sealer. The small bowel and omentum was firm with calcium deposits highly suspicious for malignancy. The adhesion was released from the left lower quadrant. Along the midline, densely adherent calcified omentum was found along the midline also with mucinous features. An excisional omental biopsy was performed of over 2 cm. Moderate abdominal ascites 1000 mL was identified and aspirated from the abdomen to send for cell cytology. Rest of the abdomen was encased in the mucinous densely adherent peritonei without moderate small bowel dilation. The pelvis was similarly encased in mucinous omentum and peritoneum. The robot was undocked. All pneumoperitoneum and instruments were evacuated from the abdominal cavity. The incisions were reapproximated using 4-0 Monocryl in an interrupted subcuticular fashion. Please note along the trocar sites, local anesthetic was placed as a field block prior to insertion of all instruments. Exofin was applied to the skin. At the end of the procedure needle, sponge, and instrument count had been verified correct by the surgical nurse. The patient was transferred to postanesthesia care unit in stable condition.
[2022-01-27] MEDS ORDERED: HYDROmorphone 0.5 MG/0.5 ML SYRINGE IVP ONE ×2 (19:53→20:01)
[2022-01-28] MEDS: ACETAMINOPHEN TAB 500 MG TAB PO SCH ×5 (00:05→23:05)
[2022-01-28] MEDS: HYDROmorphone 1 MG/ML 1 ML SYRINGE IVP PRN ×6 (02:43→23:04)
[2022-01-28] MEDS: LEVOTHYROXINE 75 MCG TAB PO SCH (05:50)
--- NOTE | 2022-01-28 08:23 | P.PN ---
Subjective Progress Note Date: 01/28/22 CHIEF COMPLAINT: Left lower quadrant abdominal pain HISTORY OF PRESENT ILLNESS: The patient is a 76-year-old female who was removed to the hospital due to severe left lower quadrant abdominal pain. She status post lysis of adhesions with features of pseudomyxoma peritonei. Biopsies were obtained. Patient reports a left lower quadrant down pain is now resolved. She's telephone video conferencing with her son in [place]. Intraoperative findings and images reviewed with her son over the telephone. Patient is tolerating regular diet. ROS: No reports of nausea and vomiting. No bowel movements. No fevers or chills. No new chest pain. No productive sputum PHYSICAL EXAM: VITAL SIGNS: Reviewed CONSTITUTIONAL: Well developed and in no acute distress. EYES: Conjuctivae without sclera icterus. Extraocular movements grossly intact. HEAD, EARS, NOSE, THROAT: Moist buccal mucosa. Head is atraumatic, normocephalic. Hears conversational speech. No nasal drainage. RESPIRATORY: Non-labored respirations and equal bilateral excursions. CARDIOVASCULAR: Palpable 2+ radial pulses. ABDOMEN: Incisions clean dry and intact. MUSCULOSKELETAL: No gross deformity of the lower extremities noted. No clubbing. No cyanosis. SKIN: Good skin turgor. Well perfused. NEUROLOGIC: Cranial nerves II through XII grossly intact. No focal or lateralizing signs. PSYCH: Appropriate affect. Alert and oriented to person, place and time. CLINICAL LABS: Reviewed. Labs pending. ASSESSMENT: 1. Left lower quadrant pain due to adhesions 2. Abdominal ascites of unclear origin PLAN: 1. Intraoperative findings unclear of carcinoma, oncology consulted. 2. Further recommendations pending consultants suggestions. Objective - Vital Signs Vital signs: Vital Signs Temp 99.3 F 01/28/22 01:50 Pulse 79 01/28/22 01:50 Resp 16 01/28/22 01:50 BP 103/54 01/28/22 01:50 Pulse Ox 94 L 01/28/22 01:50 FiO2 8 01/27/22 19:44 Intake & Output 01/27/22 01/28/22 01/28/22 18:59 06:59 18:59 Intake Total 850 Output Total 5 Balance 850 -5 Intake: IV 850 Output: Estimated Blood Loss 5 Other: # Voids 1 1 - Labs CBC & Chem 7: 01/27/22 05:48 01/27/22 05:48 Labs: Abnormal Lab Results - Last 24 Hours (Table) 01/27/22 01/27/22 Range/Units 05:48 05:48 Hgb 10.2 L (12.0-15.0) g/dL Hct 34.4 L (37.2-46.3) % MCH 23.9 L (27.0-32.0) pg MCHC 29.7 L (32.0-37.0) g/dL RDW 18.6 H (11.5-14.5) % Immature Gran # 0.06 H (0.00-0.04) X 10*3/uL Eosinophils # 0.40 H (0.04-0.35) X 10*3/uL Est GFR (CKD-EPI)AfAm 49.6 L (60.0-200.0) Est GFR (CKD-EPI)NonAf 42.8 L (60.0-200.0) Calcium 8.4 L (8.7-10.3) mg/dL
[2022-01-28] MEDS: HEPARIN SODIUM,PORCINE/PF 5,000 UNIT/0.5 ML SYRINGE SQ SCH ×2 (08:58→21:25)
[2022-01-28] MEDS: hydroCHLOROthiazide 12.5 MG CAP PO SCH (08:58)
[2022-01-28] MEDS: PANTOPRAZOLE 40 MG/10 ML VIAL IVP SCH (08:58)
[2022-01-28] MEDS: cloNIDine HCL 0.1 MG TAB PO SCH ×2 (08:58→21:25)
[2022-01-28 09:15] LABS: Basophils # (A) 0.04 X 10*3/uL (0.00-0.10); Basophils % (A) 0.5 %; Eosinophils # (A) 0.17 X 10*3/uL (0.04-0.35); Eosinophils % (A) 2.2 %; HCT 33.3 % (37.2-46.3); HGB 9.7 g/dL (12.0-15.0); Immature Grans, Automated 0.6 %; Lymphocytes # (A) 0.57 X 10*3/uL (0.90-5.00); Lymphocytes % (A) 7.4 %; MCH 23.7 pg (27.0-32.0); MCHC 29.1 g/dL (32.0-37.0); MCV 81.2 fL (80.0-97.0); Mean Platelet Volume 12.1 fL (9.5-12.2); Monocytes # (A) 0.68 X 10*3/uL (0.20-1.00); Monocytes % (A) 8.8 %; NRBC Per 100 WBC 0 /100 WBCS (0.0-0.0); Neutrophils # (A) 6.22 X 10*3/uL (1.80-7.70); Neutrophils % (A) 80.5 %; Platelet Count 278 X 10*3/uL (140-440); RDW 18.6 % (11.5-14.5); WBC 7.73 X 10*3/uL (4.50-10.00)
[2022-01-28 09:30] LABS: African American GFR (CKD) 64.3 (60.0-200.0); Anion Gap 10.7 mmol/L (10.00-18.00); Calcium 8.1 mg/dL (8.7-10.3); Carbon Dioxide 25.3 mmol/L (20.0-27.5); Non-African American GFR(CKD) 55.5 (60.0-200.0); Potassium 3.8 mmol/L (3.5-5.5)
--- NOTE | 2022-01-28 14:09 | P.CON ---
Consult Note - . 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 Dumont History of present illness: 76-year-old female past medical history significant for hypertension hypothyroidism gastric bypass surgery. Patient presented with with abdominal pain and bowel obstruction last admission. Patient had laparoscopic lysis of adhesions, omental excision claus biopsy for pseudomyxoma peritonei, aspiration of peritoneal fluid/sinusitis for cytology with removal of 1 L on January 27. Patient postoperative day #1. She still has some residual abdominal pain which is intermittent. But patient stated that the pain is much better today than yesterday prior to surgery. Patient denies any chest pain or shortness of breath. Patient denies any nausea vomiting. Patient denied any shortness of breath or cough or fever. Patient denies recent travel sick contact. Review of system: All 14 review of systems evaluated and all negative except for above. Physical examination: General: non toxic, no distress, appears at stated age Derm: warm, dry Head: atraumatic, normocephalic, symmetric Eyes: EOMI, no lid lag, anicteric sclera Mouth: no lip lesion, mucus membranes moist Cardiovascular: S1S2 reg, no murmur, positive posterior tibial pulse bilateral, Lungs: CTA bilateral, no rhonchi, no rales , no accessory muscle use Abdominal: soft, Incisions clean dry and intact. Ext: no gross muscle atrophy, no edema, no contractures Neuro: CN II-XI grossly intact, no focal neuro deficits Psych: Alert, oriented, appropriate affect Assessment and plan: #Left quadrant abdominal pain due to adhesions #Abdominal ascites of unclear etiology #Possible pseudogout resume a peritonei -Gen. surgery consulted oncology -Await ascitic fluid cytology Stable chronic condition #Hypertension -Resume clonidine and hydrochlorothiazide. #Hypothyroidism. -Resume #History of gastric bypass #GI and DVT prophylaxis with subcutaneous heparin and Protonix #Full code
--- NOTE | 2022-01-28 17:06 | P.CONS ---
History of Present Illness - Reason for Consult Consult date: 01/28/22 Peritoneum Pseudomyxoma concern Requesting physician: Minal Dumont - History of Present Illness Doris is a female who underwent procedure with Dr. Dumont for concern of bowel obstruction. During this she felt there was high suspicion for picture of psudomyxoma and therefore asked us to further evaluate. At this time cytology and tissue is awaiting results. Once this is resulted most likely need will be to be further evaluated for Hipek surgical and intraperitoneal chemo, if additional suspicion of high grade mucnois cancer exists then further treatment options maybe able to be considered. Dr. Mccoy has seen and evaluated and discussed probable expectations with patient dependending on pathology. to note she has had appenditicits in past Review of Systems All systems: negative Constitutional: Reports as per HPI Past Medical History Past Medical History: Hypertension History of Any Multi-Drug Resistant Organisms: None Reported Past Surgical History: Appendectomy, Cholecystectomy, Hernia Repair, Hysterectomy Additional Past Surgical History / Comment(s): gastro bypass Past Anesthesia/Blood Transfusion Reactions: No Reported Reaction Past Psychological History: No Psychological Hx Reported Smoking Status: Never smoker Past Alcohol Use History: Occasional Past Drug Use History: None Reported Medications and Allergies Home Medications Medication Instructions Recorded Confirmed Type Albuterol Sulfate [Ventolin HFA] 2 puff INHALATION RT-Q6H PRN 01/21/22 01/26/22 History Cyanocobalamin [Vitamin B-12 1,000 mcg SQ QMONTHLY 01/21/22 01/26/22 History Injection] Ergocalciferol (Vitamin D2) 1,250 mcg PO MO 01/21/22 01/26/22 History [Drisdol (50,000 Iu)] Folic Acid 1 mg PO DAILY 01/21/22 01/26/22 History Levothyroxine Sodium [Synthroid] 150 mcg PO DAILY 01/21/22 01/26/22 History Meclizine HCl 25 mg PO BID PRN 01/21/22 01/26/22 History Naltrexone HCl [Revia] 50 mg PO DAILY 01/21/22 01/26/22 History Pantoprazole [Protonix] 40 mg PO DAILY 01/21/22 01/26/22 History cloNIDine HCL [Catapres] 0.1 mg PO BID 01/21/22 01/26/22 History hydroCHLOROthiazide [Hydrodiuril] 12.5 mg PO DAILY 01/21/22 01/26/22 History Acetaminophen Tab [Tylenol] 650 mg PO Q6HR PRN tab 01/24/22 01/26/22 Rx Acetaminophen Tab [Tylenol Tab] 1,000 mg PO Q6HR PRN #30 tablet 01/28/22 Rx Simethicone [Gas-X] 125 mg PO AC-TID PRN #20 capsule 01/28/22 Rx Allergies Allergy/AdvReac Type Severity Reaction Status Date / Time nickel Allergy Rash/Hives Verified 01/26/22 15:53 ranitidine [From Zantac] Allergy Swelling Verified 01/26/22 15:53 Physical Exam Vitals: Vital Signs Temp Pulse Resp BP Pulse Ox FiO2 01/28/22 14:09 97.8 F 66 21 100/54 97 01/28/22 08:27 98.7 F 87 18 127/66 94 L 01/28/22 01:50 99.3 F 79 16 103/54 94 L 01/27/22 22:55 74 113/70 100 01/27/22 22:40 71 108/65 100 01/27/22 22:25 74 118/59 100 01/27/22 22:10 67 114/71 100 01/27/22 21:55 66 118/73 100 01/27/22 21:40 62 123/73 100 01/27/22 21:25 63 122/74 100 01/27/22 21:10 64 127/64 100 01/27/22 20:55 98.1 F 63 17 128/81 100 01/27/22 20:16 61 16 142/62 100 01/27/22 20:01 62 16 146/65 100 01/27/22 19:44 99.9 F H 72 16 152/65 100 8 Intake and Output 01/28/22 01/28/22 01/28/22 06:59 14:59 22:59 Intake Total 180 Balance 180 Intake: Oral 180 Other: # Voids 1 1 - Constitutional General appearance: cooperative, no acute distress - EENT Eyes: EOMI, PERRLA ENT: NA/AT - Neck Neck: normal ROM - Respiratory Respiratory: bilateral: diminished - Gastrointestinal General gastrointestinal: tenderness - Integumentary Integumentary: pale - Neurologic Neurologic: CNII-XII intact - Musculoskeletal Musculoskeletal: generalized weakness - Psychiatric Psychiatric: A&O x's 3 Results CBC & Chem 7: 01/28/22 05:41 01/28/22 05:41 Labs: Abnormal Lab Results - Last 24 Hours (Table) 01/28/22 01/28/22 Range/Units 05:41 05:41 Hgb 9.7 L (12.0-15.0) g/dL Hct 33.3 L (37.2-46.3) % MCH 23.7 L (27.0-32.0) pg MCHC 29.1 L (32.0-37.0) g/dL RDW 18.6 H (11.5-14.5) % Immature Gran # 0.05 H (0.00-0.04) X 10*3/uL Lymphocytes # 0.57 L (0.90-5.00) X 10*3/uL Est GFR (CKD-EPI)NonAf 55.5 L (60.0-200.0) Calcium 8.1 L (8.7-10.3) mg/dL Assessment and Plan (1) Partial small bowel obstruction Current Visit: Yes Status: Acute Code(s): K56.600 - PARTIAL INTESTINAL OBSTRUCTION, UNSPECIFIED TO CAUSE SNOMED Code(s): 940712040 Plan: During surgical intervention suspicious appearance consistant with pseudomyxoma was identified, this is currently undergoing pathology Recommendation after discharge unless high grade and consistent with mucinous appearing malignancy plan to follow-up with Dr. Karimi for likely hipek procedure Physician Attest: I have completed the full history and physical and developed the above impression and plan, agree with dictation, dictated as a scribe
--- NOTE | 2022-01-28 19:21 | P.PN ---
Progress Note - Text Progress Note Date: 01/28/22 Per patient request, she declined hospital/medicine consultation.
[2022-01-29] MEDS: HYDROmorphone 1 MG/ML 1 ML SYRINGE IVP PRN ×6 (01:48→23:15)
[2022-01-29] MEDS: ONDANSETRON 4 MG/2 ML VIAL IVP PRN ×3 (01:53→23:15)
[2022-01-29] MEDS: LEVOTHYROXINE 75 MCG TAB PO SCH (05:37)
[2022-01-29] MEDS: ACETAMINOPHEN TAB 500 MG TAB PO SCH ×4 (05:38→23:15)
[2022-01-29] MEDS: hydroCHLOROthiazide 12.5 MG CAP PO SCH (08:10)
[2022-01-29] MEDS: cloNIDine HCL 0.1 MG TAB PO SCH ×2 (08:10→19:46)
[2022-01-29] MEDS: HEPARIN SODIUM,PORCINE/PF 5,000 UNIT/0.5 ML SYRINGE SQ SCH ×2 (08:10→19:46)
[2022-01-29] MEDS: PANTOPRAZOLE 40 MG TABLET PO SCH (08:10)
[2022-01-29 08:40] LABS: Basophils # (A) 0.03 X 10*3/uL (0.00-0.10); Basophils % (A) 0.3 %; Eosinophils # (A) 0.43 X 10*3/uL (0.04-0.35); Eosinophils % (A) 4.6 %; HGB 9.2 g/dL (12.0-15.0); Immature Grans, Automated 0.6 %; Lymphocytes # (A) 0.58 X 10*3/uL (0.90-5.00); Lymphocytes % (A) 6.3 %; MCH 24.2 pg (27.0-32.0); MCHC 29.7 g/dL (32.0-37.0); MCV 81.6 fL (80.0-97.0); Mean Platelet Volume 11.4 fL (9.5-12.2); Monocytes % (A) 10.8 %; NRBC Per 100 WBC 0 /100 WBCS (0.0-0.0); Neutrophils # (A) 7.18 X 10*3/uL (1.80-7.70); Neutrophils % (A) 77.4 %; Platelet Count 270 X 10*3/uL (140-440); RDW 18.6 % (11.5-14.5); WBC 9.28 X 10*3/uL (4.50-10.00)
[2022-01-29 08:59] LABS: African American GFR (CKD) 64.3 (60.0-200.0); Anion Gap 9.9 mmol/L (10.00-18.00); BUN/Creat Ratio 12.1 Ratio (12.00-20.00); Blood Urea Nitrogen 12.1 mg/dL (9.0-27.0); Calcium 8.3 mg/dL (8.7-10.3); Carbon Dioxide 26.1 mmol/L (20.0-27.5); Magnesium 1.9 mg/dL (1.5-2.4); Non-African American GFR(CKD) 55.5 (60.0-200.0); Potassium 3.7 mmol/L (3.5-5.5)
[2022-01-29] MEDS ORDERED: MAGNESIUM CITRATE 296 ML BOTTLE PO ONE (11:02)
--- NOTE | 2022-01-29 11:04 | P.PN ---
Subjective Progress Note Date: 01/29/22 Principal diagnosis: Abdominal pain Patient doing well today. Tolerating regular diet in small volumes. T-max 99.1. Patient complaining of lack of bowel movement for quite some time with minimal flatus. Mild nausea, no vomiting. Objective - Vital Signs Vital signs: Vital Signs Temp 98.0 F 01/29/22 07:59 Pulse 66 01/29/22 07:59 Resp 16 01/29/22 07:59 BP 120/69 01/29/22 07:59 Pulse Ox 94 L 01/29/22 07:59 FiO2 8 01/27/22 19:44 Intake & Output 01/28/22 01/29/22 01/29/22 18:59 06:59 18:59 Intake Total 360 Balance 360 Intake: Oral 360 Other: Voiding Method Toilet # Voids 1 2 - Exam Abdomen: Soft, nondistended, incisions clean and dry, minimal tenderness - Labs CBC & Chem 7: 01/29/22 04:26 01/29/22 04:26 Labs: Abnormal Lab Results - Last 24 Hours (Table) 01/29/22 01/29/22 Range/Units 04:26 04:26 RBC 3.80 L (4.10-5.20) X 10*6/uL Hgb 9.2 L (12.0-15.0) g/dL Hct 31.0 L (37.2-46.3) % MCH 24.2 L (27.0-32.0) pg MCHC 29.7 L (32.0-37.0) g/dL RDW 18.6 H (11.5-14.5) % Immature Gran # 0.06 H (0.00-0.04) X 10*3/uL Lymphocytes # 0.58 L (0.90-5.00) X 10*3/uL Eosinophils # 0.43 H (0.04-0.35) X 10*3/uL Sodium 134 L (135-145) mmol/L Anion Gap 9.90 L (10.00-18.00) mmol/L Est GFR (CKD-EPI)NonAf 55.5 L (60.0-200.0) Calcium 8.3 L (8.7-10.3) mg/dL Assessment and Plan (1) Partial small bowel obstruction Narrative/Plan: Overall patient seems to be gradually improving. She is tolerating her diet. She does have mild nausea. We'll add stool softeners. Continue increasing activity as tolerated. Await pathology. Current Visit: Yes Status: Acute Code(s): K56.600 - PARTIAL INTESTINAL OBSTRUCTION, UNSPECIFIED TO CAUSE SNOMED Code(s): 560208929
[2022-01-29] MEDS: MAGNESIUM HYDROXIDE 2,400 MG/10 ML CUP PO SCH (12:20)
--- NOTE | 2022-01-29 16:12 | P.PN ---
Subjective History of present illness: 76-year-old female past medical history significant for hypertension hypothyroidism gastric bypass surgery. Patient presented with with abdominal pain and bowel obstruction last admission. Patient had laparoscopic lysis of adhesions, omental excision claus biopsy for pseudomyxoma peritonei, aspiration of peritoneal fluid/sinusitis for cytology with removal of 1 L on January 27. Patient postoperative day #1. She still has some residual abdominal pain which is intermittent. But patient stated that the pain is much better today than yesterday prior to surgery. Patient denies any chest pain or shortness of breath. Patient denies any nausea vomiting. Patient denied any shortness of breath or cough or fever. Patient denies recent travel sick contact. Interval history Patient was seen and examined at the bedside. She denies any chest pain or shortness of breath. Patient tolerating regular diet Physical examination: General: non toxic, no distress, appears at stated age Derm: warm, dry Head: atraumatic, normocephalic, symmetric Eyes: EOMI, no lid lag, anicteric sclera Mouth: no lip lesion, mucus membranes moist Cardiovascular: S1S2 reg, no murmur, positive posterior tibial pulse bilateral, Lungs: CTA bilateral, no rhonchi, no rales , no accessory muscle use Abdominal: soft, Incisions clean dry and intact. Ext: no gross muscle atrophy, no edema, no contractures Neuro: CN II-XI grossly intact, no focal neuro deficits Psych: Alert, oriented, appropriate affect Assessment and plan: #Left quadrant abdominal pain due to adhesions #Abdominal ascites of unclear etiology #Possible pseudogout resume a peritonei -Gen. surgery consulted oncology -Await ascitic fluid cytology -Hematology following Stable chronic condition #Hypertension -Resume clonidine -Hydrochlorothiazide discontinued secondary to hyponatremia Mild hyponatremia secondary to have a chlorothiazide #Hypothyroidism. -Resume #History of gastric bypass #GI and DVT prophylaxis with subcutaneous heparin and Protonix #Full code Objective - Vital Signs Vital signs: Vital Signs Temp 98.3 F 01/29/22 14:00 Pulse 69 01/29/22 14:00 Resp 18 01/29/22 14:00 BP 113/63 01/29/22 14:00 Pulse Ox 96 01/29/22 14:00 FiO2 8 01/27/22 19:44 Intake & Output 01/28/22 01/29/22 01/29/22 18:59 06:59 18:59 Intake Total 360 Balance 360 Intake: Oral 360 Other: Voiding Method Toilet # Voids 1 2 - Labs CBC & Chem 7: 01/29/22 04:26 01/29/22 04:26 Labs: Abnormal Lab Results - Last 24 Hours (Table) 01/29/22 01/29/22 Range/Units 04:26 04:26 RBC 3.80 L (4.10-5.20) X 10*6/uL Hgb 9.2 L (12.0-15.0) g/dL Hct 31.0 L (37.2-46.3) % MCH 24.2 L (27.0-32.0) pg MCHC 29.7 L (32.0-37.0) g/dL RDW 18.6 H (11.5-14.5) % Immature Gran # 0.06 H (0.00-0.04) X 10*3/uL Lymphocytes # 0.58 L (0.90-5.00) X 10*3/uL Eosinophils # 0.43 H (0.04-0.35) X 10*3/uL Sodium 134 L (135-145) mmol/L Anion Gap 9.90 L (10.00-18.00) mmol/L Est GFR (CKD-EPI)NonAf 55.5 L (60.0-200.0) Calcium 8.3 L (8.7-10.3) mg/dL
[2022-01-29] MEDS: bisacodyL 10 MG SUPP RECTAL SCH ×2 (17:33→23:00)
[2022-01-30] MEDS: HYDROmorphone 1 MG/ML 1 ML SYRINGE IVP PRN ×3 (04:43→20:55)
[2022-01-30] MEDS: LEVOTHYROXINE 75 MCG TAB PO SCH (05:41)
[2022-01-30] MEDS: ACETAMINOPHEN TAB 500 MG TAB PO SCH ×4 (05:41→23:42)
[2022-01-30] MEDS: cloNIDine HCL 0.1 MG TAB PO SCH ×2 (07:57→20:32)
[2022-01-30] MEDS: PANTOPRAZOLE 40 MG TABLET PO SCH (07:57)
[2022-01-30] MEDS: HEPARIN SODIUM,PORCINE/PF 5,000 UNIT/0.5 ML SYRINGE SQ SCH ×2 (07:57→20:32)
[2022-01-30] MEDS: MAGNESIUM HYDROXIDE 2,400 MG/10 ML CUP PO SCH (07:57)
[2022-01-30 10:26] LABS: Basophils # (A) 0.03 X 10*3/uL (0.00-0.10); Basophils % (A) 0.4 %; Eosinophils # (A) 0.42 X 10*3/uL (0.04-0.35); Eosinophils % (A) 5.2 %; HCT 32.8 % (37.2-46.3); HGB 9.6 g/dL (12.0-15.0); Immature Grans, Automated 0.7 %; Lymphocytes % (A) 12.3 %; MCH 23.8 pg (27.0-32.0); MCHC 29.3 g/dL (32.0-37.0); MCV 81.4 fL (80.0-97.0); Monocytes # (A) 0.76 X 10*3/uL (0.20-1.00); Monocytes % (A) 9.4 %; NRBC Per 100 WBC 0 /100 WBCS (0.0-0.0); Neutrophils # (A) 5.83 X 10*3/uL (1.80-7.70); Platelet Count 330 X 10*3/uL (140-440); RBC 4.03 X 10*6/uL (4.10-5.20); RDW 18.5 % (11.5-14.5)
[2022-01-30 10:56] LABS: Magnesium 2.4 mg/dL (1.5-2.4)
[2022-01-30 11:02] LABS: African American GFR (CKD) 42.8 (60.0-200.0); BUN/Creat Ratio 14.21 Ratio (12.00-20.00); Blood Urea Nitrogen 19.9 mg/dL (9.0-27.0); Calcium 8.5 mg/dL (8.7-10.3); Non-African American GFR(CKD) 36.9 (60.0-200.0); Potassium 4.3 mmol/L (3.5-5.5)
[2022-01-30] MEDS ORDERED: bisacodyL 10 MG SUPP RECTAL STA (11:19)
[2022-01-30] MEDS: MORPHINE SULFATE 2 MG/ML SYRINGE IVP PRN ×2 (11:29→18:22)
--- NOTE | 2022-01-30 11:39 | P.PN ---
Subjective Progress Note Date: 01/30/22 Principal diagnosis: Abdominal pain Patient feels bloated today. Some nausea but no vomiting. She has not had a bowel movement. She was given milk of magnesia yesterday which did give her some cramps. She did do a Dulcolax suppository as well yesterday. Objective - Vital Signs Vital signs: Vital Signs Temp 98.4 F 01/30/22 08:00 Pulse 51 L 01/30/22 08:00 Resp 16 01/30/22 08:00 BP 105/68 01/30/22 08:00 Pulse Ox 100 01/30/22 08:00 FiO2 8 01/27/22 19:44 Intake & Output 01/29/22 01/30/22 01/30/22 18:59 06:59 18:59 Intake Total 400 Balance 400 Intake: Oral 400 Other: Voiding Method Toilet Toilet Toilet # Voids 2 # Bowel Movements 1 1 - Exam Abdomen: Soft, mild distention, mild diffuse tenderness - Labs CBC & Chem 7: 01/30/22 06:18 01/30/22 06:18 Labs: Abnormal Lab Results - Last 24 Hours (Table) 01/30/22 01/30/22 Range/Units 06:18 06:18 RBC 4.03 L (4.10-5.20) X 10*6/uL Hgb 9.6 L (12.0-15.0) g/dL Hct 32.8 L (37.2-46.3) % MCH 23.8 L (27.0-32.0) pg MCHC 29.3 L (32.0-37.0) g/dL RDW 18.5 H (11.5-14.5) % Immature Gran # 0.06 H (0.00-0.04) X 10*3/uL Eosinophils # 0.42 H (0.04-0.35) X 10*3/uL Sodium 134 L (135-145) mmol/L Est GFR (CKD-EPI)AfAm 42.8 L (60.0-200.0) Est GFR (CKD-EPI)NonAf 36.9 L (60.0-200.0) Calcium 8.5 L (8.7-10.3) mg/dL Assessment and Plan (1) Partial small bowel obstruction Narrative/Plan: Patient with ongoing complaints of decreased bowel function. We'll try Dulcolax suppository again. Certainly the patient's at risk for bowel obstruction or bowel dysmotility because of the intraoperative findings. Await final pathology. Current Visit: Yes Status: Acute Code(s): K56.600 - PARTIAL INTESTINAL OBSTRUCTION, UNSPECIFIED TO CAUSE SNOMED Code(s): 182227271
[2022-01-30] MEDS: bisacodyL 10 MG SUPP RECTAL SCH (20:32)
[2022-01-31] MEDS: MORPHINE SULFATE 2 MG/ML SYRINGE IVP PRN ×2 (00:27→07:16)
[2022-01-31] MEDS: PANTOPRAZOLE 40 MG TABLET PO SCH (05:22)
[2022-01-31] MEDS: LEVOTHYROXINE 75 MCG TAB PO SCH (05:22)
[2022-01-31] MEDS: ACETAMINOPHEN TAB 500 MG TAB PO SCH ×4 (05:22→22:41)
[2022-01-31] MEDS: cloNIDine HCL 0.1 MG TAB PO SCH ×2 (07:16→22:43)
[2022-01-31] MEDS: HEPARIN SODIUM,PORCINE/PF 5,000 UNIT/0.5 ML SYRINGE SQ SCH ×2 (07:16→22:43)
[2022-01-31] MEDS: MAGNESIUM HYDROXIDE 2,400 MG/10 ML CUP PO SCH ×2 (07:16→22:41)
[2022-01-31 08:46] LABS: Basophils # (A) 0.04 X 10*3/uL (0.00-0.10); Basophils % (A) 0.5 %; Eosinophils # (A) 0.41 X 10*3/uL (0.04-0.35); Eosinophils % (A) 5.3 %; HCT 29.9 % (37.2-46.3); HGB 8.7 g/dL (12.0-15.0); Immature Grans, Automated 0.6 %; Lymphocytes # (A) 0.82 X 10*3/uL (0.90-5.00); Lymphocytes % (A) 10.6 %; MCH 23.8 pg (27.0-32.0); MCHC 29.1 g/dL (32.0-37.0); MCV 81.7 fL (80.0-97.0); Mean Platelet Volume 11.8 fL (9.5-12.2); Monocytes # (A) 0.99 X 10*3/uL (0.20-1.00); Monocytes % (A) 12.8 %; NRBC Per 100 WBC 0 /100 WBCS (0.0-0.0); Neutrophils # (A) 5.44 X 10*3/uL (1.80-7.70); Neutrophils % (A) 70.2 %; Platelet Count 310 X 10*3/uL (140-440); RBC 3.66 X 10*6/uL (4.10-5.20); RDW 18.4 % (11.5-14.5); WBC 7.75 X 10*3/uL (4.50-10.00)
[2022-01-31 08:56] LABS: Anion Gap 12.1 mmol/L (10.00-18.00); BUN/Creat Ratio 18.68 Ratio (12.00-20.00); Blood Urea Nitrogen 22.6 mg/dL (9.0-27.0); Calcium 8.2 mg/dL (8.7-10.3); Carbon Dioxide 25.2 mmol/L (20.0-27.5)
[2022-01-31] MEDS: HYDROmorphone 1 MG/ML 1 ML SYRINGE IVP PRN ×4 (11:07→23:45)
[2022-01-31] MEDS: SIMETHICONE 40 MG/0.6 ML DROPS 2,000 MG/30 ML BOTTLE PO SCH ×3 (11:07→22:42)
[2022-01-31] MEDS: LACTULOSE 20 GM/30 ML CUP PO SCH ×2 (14:09→22:47)
--- NOTE | 2022-01-31 14:11 | P.PN ---
Subjective Progress Note Date: 01/31/22 CHIEF COMPLAINT: Abdominal pain HISTORY OF PRESENT ILLNESS: Patient status post Robotic lysis of adhesions, omental excisional biopsy for pseudomyxoma peritonei, aspiration of peritoneal fluid/ascites for cell cytology. Patient continues to complain of abdominal pain. She has required IV pain medication. She's also complaining of constipation. She reports that she had small pebble-like bowel movement after did do Dulcolax suppository. She reports bloating after eating. Denies any nausea vomiting. She did have a small amount of flatus. Afebrile. WBC is 7.75 hemoglobin 8.7 platelets 310 creatinine 1.2 PHYSICAL EXAM: VITAL SIGNS: Reviewed GENERAL: Well-developed in no acute distress. HEENT: No sclera icterus. Extraocular movements grossly intact. Moist buccal mucosa. Head is atraumatic, normocephalic. Hears conversational speech. No nasal drainage. NECK: Supple without lymphadenopathy. CHEST: Non-labored respirations and equal bilateral excursions. CARDIOVASCULAR: Palpable 2+ radial pulses. ABDOMEN: Soft. Nondistended. MUSCULOSKELETAL: No clubbing or cyanosis. NEUROLOGIC: No focal or lateralizing signs. Cranial nerves II through XII grossly intact. PSYCH: Appropriate affect. Alert and oriented to person, place and time. SKIN: Well perfused. Good skin turgor. ASSESSMENT: 1. 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 Constipation PLAN: -Add low fiber diet. Continue lactose free diet. -Add milk of magnesia twice a day and lactulose 30 mL twice a day for constipation -Add Mylicon gas drops for gas pain -Encourage patient to ambulate -Follow up on path results Physician Financial Reporting Advisor note has been reviewed by physician. Signing provider agrees with the documented findings, assessment, and plan of care. As above. Patient has baseline chronic abdominal pain ongoing for over 3 weeks. Patient is requesting cathartics for constipation. Has appropriate incisional tenderness right lateral abdominal wall. Low fiber diet started as she is tolerating liquids. Objective - Vital Signs Vital signs: Vital Signs Temp 98.1 F 01/31/22 06:54 Pulse 67 06/06/22 06:54 Resp 17 01/31/22 07:00 BP 106/68 01/31/22 06:54 Pulse Ox 98 01/31/22 06:54 FiO2 8 01/27/22 19:44 Intake & Output 01/30/22 01/31/22 01/31/22 18:59 06:59 18:59 Other: Voiding Method Toilet Toilet Toilet # Voids 4 2 # Bowel Movements 1 - Labs CBC & Chem 7: 02/01/22 09:57 02/02/22 12:27 Labs: Abnormal Lab Results - Last 24 Hours (Table) 01/31/22 01/31/22 Range/Units 04:42 04:42 RBC 3.66 L (4.10-5.20) X 10*6/uL Hgb 8.7 L (12.0-15.0) g/dL Hct 29.9 L (37.2-46.3) % MCH 23.8 L (27.0-32.0) pg MCHC 29.1 L (32.0-37.0) g/dL RDW 18.4 H (11.5-14.5) % Immature Gran # 0.05 H (0.00-0.04) X 10*3/uL Lymphocytes # 0.82 L (0.90-5.00) X 10*3/uL Eosinophils # 0.41 H (0.04-0.35) X 10*3/uL Est GFR (CKD-EPI)AfAm 51.0 L (60.0-200.0) Est GFR (CKD-EPI)NonAf 44.0 L (60.0-200.0) Calcium 8.2 L (8.7-10.3) mg/dL
[2022-01-31] MEDS: ONDANSETRON 4 MG/2 ML VIAL IVP PRN ×2 (15:38→20:35)
[2022-02-01] MEDS: ONDANSETRON 4 MG/2 ML VIAL IVP PRN ×4 (02:21→21:38)
[2022-02-01] MEDS: HYDROmorphone 1 MG/ML 1 ML SYRINGE IVP PRN ×5 (03:36→21:29)
[2022-02-01] MEDS: ACETAMINOPHEN TAB 500 MG TAB PO SCH ×4 (05:20→23:45)
[2022-02-01] MEDS: LEVOTHYROXINE 75 MCG TAB PO SCH (05:20)
[2022-02-01] MEDS: cloNIDine HCL 0.1 MG TAB PO SCH ×2 (08:08→20:00)
[2022-02-01] MEDS: HEPARIN SODIUM,PORCINE/PF 5,000 UNIT/0.5 ML SYRINGE SQ SCH ×2 (08:08→20:00)
[2022-02-01] MEDS: PANTOPRAZOLE 40 MG TABLET PO SCH (08:08)
[2022-02-01] MEDS: LACTULOSE 20 GM/30 ML CUP PO SCH ×2 (08:08→20:00)
[2022-02-01] MEDS: MAGNESIUM HYDROXIDE 2,400 MG/10 ML CUP PO SCH ×2 (08:08→20:00)
[2022-02-01] MEDS: SIMETHICONE 40 MG/0.6 ML DROPS 2,000 MG/30 ML BOTTLE PO SCH ×4 (08:09→20:00)
[2022-02-01 10:45] LABS: Anisocytosis Slight; HCT 35.7 % (34.0-46.0); HGB 10.4 gm/dL (11.4-16.0); Hypochromasia Marked; MCH 24.7 pg (25.0-35.0); MCHC 29.3 g/dL (31.0-37.0); MCV 84.5 fL (80.0-100.0); Mean Platelet Volume 9.2; Platelet Count 364 k/uL (150-450); RBC 4.22 m/uL (3.80-5.40); RDW 16.9 % (11.5-15.5); WBC 7.4 k/uL (3.8-10.6)
[2022-02-01] MEDS ORDERED: METOCLOPRAMIDE 5 MG/ML 2 ML VIAL IVP PRN (11:38)
[2022-02-01] MEDS: METOCLOPRAMIDE 5 MG/ML 2 ML VIAL IVP SCH ×3 (11:48→23:45)
--- NOTE | 2022-02-01 12:22 | XR ---
EXAMINATION TYPE: XR abdomen 2V DATE OF EXAM: 02/01/2022 CLINICAL DATA: 76-year-old female nausea and vomiting, abdominal pain, PHH COMPARISON: 01/26/2022 FINDINGS: Lung bases are clear. No evidence for free intraperitoneal air. Numerous small bowel air-fluid levels and some mildly dilated small bowel loops measuring up to 3.6 c m in the mid abdomen. Paucity of air in the left side of the colon. IVC filter. Possible subtle pneumobilia versus portal venous air. IMPRESSION: 1. Progressive dilatation of mid abdominal small bowel loops now measuring up to 3.6 cm with persiste nt air-fluid levels. Possible ileus. Unable to exclude developing small bowel obstruction. 2. Question some subtle pneumobilia versus portal venous air.
[2022-02-01] MEDS: MORPHINE SULFATE 2 MG/ML SYRINGE IVP PRN (14:30)
--- NOTE | 2022-02-01 14:53 | P.PN ---
Subjective Progress Note Date: 02/01/22 CHIEF COMPLAINT: Abdominal pain HISTORY OF PRESENT ILLNESS: Patient status post Robotic lysis of adhesions, omental excisional biopsy for pseudomyxoma peritonei, aspiration of peritoneal fluid/ascites for cell cytology. Patient continues to complain of abdominal pain. Patient also expressing nausea and vomiting. She had vomiting last night and again this morning. She is having flatus. No bowel movements with the milk of mag or lactulose. She has required IV pain medication. Afebrile. WBC 7.4 hemoglobin 8.7 up to 10.4 plt 364 Abdominal x-ray shows progressive dilatation of mid abdominal wall small bowel loops measuring up to 3.6 cm with persistent air-fluid levels. Possible ileus. Unable to exclude developing small bowel obstruction. Question some subtle pneumobilia versus portal venous air. X-ray results discussed with Dr. Dumont. PHYSICAL EXAM: VITAL SIGNS: Reviewed GENERAL: Well-developed in no acute distress. HEENT: No sclera icterus. Extraocular movements grossly intact. Moist buccal mucosa. Head is atraumatic, normocephalic. Hears conversational speech. No nasal drainage. NECK: Supple without lymphadenopathy. CHEST: Non-labored respirations and equal bilateral excursions. CARDIOVASCULAR: Palpable 2+ radial pulses. ABDOMEN: Soft. Nondistended. Diffuse tenderness and more tender in the right upper quadrant. MUSCULOSKELETAL: No clubbing or cyanosis. NEUROLOGIC: No focal or lateralizing signs. Cranial nerves II through XII grossly intact. PSYCH: Appropriate affect. Alert and oriented to person, place and time. SKIN: Well perfused. Good skin turgor. ASSESSMENT: 1. Abdominal ascites, abdominal adhesions left lower quadrant, pseudomyxoma pe ritonei of the abdomen status post Robotic lysis of adhesions, omental excisional biopsy for pseudomyxoma peritonei, aspiration of peritoneal fluid/ascites for cell cytology 2. Constipation 3. Abdominal ileus PLAN: -Reglan ordered for abdominal ileus -Downgrade diet to clear liquids -Continue bowel regimen -continue Mylicon gas drops for gas pain -Encourage patient to ambulate -Follow up on path results -Discussed with nurse regarding getting patient abdominal binder -Continue ice as needed -Continue pain medication as needed Physician Chaperon note has been reviewed by physician. Signing provider agrees with the documented findings, assessment, and plan of care. As above. Patient seen and evaluated. Video conference performed with the patient including son Demetrio from [place] over the phone. Abdominal x-ray review consistent with ileus. 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 Oncology assessment pending. Downgrade diet to clears. Objective - Vital Signs Vital signs: Vital Signs Temp 98.3 F 02/01/22 14:00 Pulse 80 02/01/22 14:00 Resp 19 02/01/22 14:00 BP 120/74 02/01/22 14:00 Pulse Ox 95 02/01/22 14:00 FiO2 8 01/27/22 19:44 Intake & Output 01/31/22 02/01/22 02/01/22 18:59 06:59 18:59 Other: Voiding Method Toilet # Voids 2 1 - Labs CBC & Chem 7: 02/01/22 09:57 01/31/22 04:42 Labs: Abnormal Lab Results - Last 24 Hours (Table) 02/01/22 Range/Units 09:57 Hgb 10.4 L (11.4-16.0) gm/dL MCH 24.7 L (25.0-35.0) pg MCHC 29.3 L (31.0-37.0) g/dL RDW 16.9 H (11.5-15.5) %
[2022-02-01 18:28] LABS: % Iron Saturation 6.15 (12.00-45.00)
--- NOTE | 2022-02-01 19:36 | P.PN ---
Subjective Progress Note Date: 02/01/22 Pt seen today in f/u, c/o abd pain, severe constipation, nausea and some vomiting. Objective - Vital Signs Vital signs: Vital Signs Temp 98.2 F 02/01/22 08:00 Pulse 75 02/01/22 08:00 Resp 19 02/01/22 08:00 BP 113/63 02/01/22 08:00 Pulse Ox 97 02/01/22 08:00 FiO2 8 01/27/22 19:44 Intake & Output 01/31/22 02/01/22 02/01/22 18:59 06:59 18:59 Other: Voiding Method Toilet # Voids 2 1 - Constitutional General appearance: Present: cooperative, mild distress, obese - EENT Eyes: Present: anicteric sclerae, EOMI ENT: Present: hearing grossly normal - Respiratory Details: resp even and unlabored - Neurologic Neurologic: Present: CNII-XII intact (grossly) - Psychiatric Psychiatric: Present: A&O x's 3, appropriate affect, intact judgment & insight - Labs CBC & Chem 7: 02/01/22 09:57 01/31/22 04:42 Labs: Abnormal Lab Results - Last 24 Hours (Table) 02/01/22 Range/Units 09:57 Hgb 10.4 L (11.4-16.0) gm/dL MCH 24.7 L (25.0-35.0) pg MCHC 29.3 L (31.0-37.0) g/dL RDW 16.9 H (11.5-15.5) % - Imaging and Cardiology Abdominal x-ray: report reviewed (Surgery ordered, possible ileus) Assessment and Plan Plan: Discussion with patient and her daughter, summarized hospitalization, all their questions answered to their satisfaction. Still pending pathology. Anemia workup ordered.
[2022-02-02] MEDS: HYDROmorphone 1 MG/ML 1 ML SYRINGE IVP PRN ×5 (00:32→23:37)
[2022-02-02] MEDS: MORPHINE SULFATE 2 MG/ML SYRINGE IVP PRN ×2 (03:33→13:17)
[2022-02-02] MEDS: METOCLOPRAMIDE 5 MG/ML 2 ML VIAL IVP SCH ×3 (05:43→17:20)
[2022-02-02] MEDS: ALBUTEROL NEBULIZED 2.5 MG/3 ML INHALATION PRN (06:11)
[2022-02-02] MEDS: LACTULOSE 20 GM/30 ML CUP PO SCH (08:21)
[2022-02-02] MEDS: LEVOTHYROXINE 75 MCG TAB PO SCH (08:22)
[2022-02-02] MEDS: HEPARIN SODIUM,PORCINE/PF 5,000 UNIT/0.5 ML SYRINGE SQ SCH ×2 (08:22→21:04)
[2022-02-02] MEDS: ACETAMINOPHEN TAB 500 MG TAB PO SCH ×3 (08:22→17:20)
[2022-02-02] MEDS: PANTOPRAZOLE 40 MG TABLET PO SCH (08:22)
[2022-02-02] MEDS: cloNIDine HCL 0.1 MG TAB PO SCH ×2 (08:22→21:04)
[2022-02-02] MEDS: SIMETHICONE 40 MG/0.6 ML DROPS 2,000 MG/30 ML BOTTLE PO SCH ×4 (08:22→20:18)
[2022-02-02] MEDS: MAGNESIUM HYDROXIDE 2,400 MG/10 ML CUP PO SCH (08:22)
[2022-02-02 13:06] LABS: ALT 10 U/L (4-34); AST 35 U/L (14-36); African American GFR (CKD) 36 (>60 ml/min/1.73 sqM); Albumin 2.7 g/dL (3.5-5.0); Albumin/Globulin Ratio 0.8; Alkaline Phosphatase 150 U/L (38-126); Anion Gap 7 mmol/L; Blood Urea Nitrogen 39 mg/dL (7-17); Carbon Dioxide 29 mmol/L (22-30); Chloride 97 mmol/L (98-107); Globulin 3.2 g/dL; Glucose 119 mg/dL (74-99); Non-African American GFR(CKD) 32 (>60 ml/min/1.73 sqM); Potassium 4.8 mmol/L (3.5-5.1); Sodium 133 mmol/L (137-145); Total Bilirubin 0.4 mg/dL (0.2-1.3); Total Protein 5.9 g/dL (6.3-8.2)
[2022-02-02] MEDS: ONDANSETRON 4 MG/2 ML VIAL IVP PRN ×3 (13:07→20:21)
[2022-02-02] MEDS ORDERED: POLYETHYLENE GLYCOL LYTES SOLN 4,000 ML SOLN.RECON PO ONE (13:21)
--- NOTE | 2022-02-02 15:45 | P.PN ---
Subjective Progress Note Date: 02/02/22 CHIEF COMPLAINT: Abdominal pain HISTORY OF PRESENT ILLNESS: Patient status post Robotic lysis of adhesions, omental excisional biopsy for pseudomyxoma peritonei, aspiration of peritoneal fluid/ascites for cell cytology. 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 Patient was informed of pathology results by oncology service as well as Dr. Dumont. Patient continues require IV pain medication for her abdominal pain. She did have episodes of vomiting as well. She is been able to tolerate only minimal clear liquids. She did have a small bowel movement. Case discussed with oncology service the recommending an EGD and colonoscopy to rule out gastrointestinal primary source. They've also ordered an MRCP for further evaluation of pancreatic biliary source and have ordered tumor markers. Patient had EGD recently on 01/23/2022 which had revealed lower esophageal stenosis requiring dilation, diaphragmatic hernia, gastrojejunal stricture status post dilation. Afebrile. Sodium 133 potassium is 4.8 creatinine 1.6 PHYSICAL EXAM: VITAL SIGNS: Reviewed GENERAL: Well-developed in no acute distress. HEENT: No sclera icterus. Extraocular movements grossly intact. Moist buccal mucosa. Head is atraumatic, normocephalic. Hears conversational speech. No nasal drainage. NECK: Supple without lymphadenopathy. CHEST: Non-labored respirations and equal bilateral excursions. CARDIOVASCULAR: Palpable 2+ radial pulses. ABDOMEN: Soft. Nondistended. Diffuse tenderness MUSCULOSKELETAL: No clubbing or cyanosis. NEUROLOGIC: No focal or lateralizing signs. Cranial nerves II through XII grossly intact. PSYCH: Appropriate affect. Alert and oriented to person, place and time. SKIN: Well perfused. Good skin turgor. ASSESSMENT: 1. 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 Constipation 3. Abdominal ileus 4. Pathology positive for poorly differentiated adenocarcinoma PLAN: -Patient scheduled for colonoscopy tomorrow 02/03/[address] Dumont -Start Nulytely bowel prep today -Soap andrew enema ordered -Nothing by mouth after midnight -Continue Reglan for abdominal ileus -Appreciate oncology recommendations -Continue pain medication as needed -Continue anti-emetics -Patient's family is requesting a transfer to [facility] for further care. Dr. Dumont did discuss pathology results and plan of care with both the patient and [id number] who was on the phone. At this time patient wants to proceed with colonoscopy and further testing while she is on the waiting list for transfer to [facility]. Physician Industrial Automation Engineer note has been reviewed by physician. Signing provider agrees with the documented findings, assessment, and plan of care. Please see additional separate documentation. Colonoscopy scheduled per request of oncology. Additional diagnostic studies being performed per oncology. Colonoscopy prep including enemas to prepare for colonoscopy reviewed. Objective - Vital Signs Vital signs: Vital Signs Temp 98.3 F 02/02/22 08:00 Pulse 88 02/02/22 08:00 Resp 15 02/02/22 01:17 BP 113/75 02/02/22 08:00 Pulse Ox 95 02/02/22 08:00 FiO2 8 01/27/22 19:44 Intake & Output 02/01/22 02/02/22 02/02/22 18:59 06:59 18:59 Intake Total 1080 Balance 1080 Intake: Oral 1080 - Labs CBC & Chem 7: 02/01/22 09:57 02/02/22 12:27 Labs: Abnormal Lab Results - Last 24 Hours (Table) 02/01/22 02/02/22 Range/Units 09:57 12:27 Sodium 133 L (137-145) mmol/L Chloride 97 L (98-107) mmol/L BUN 39 H (7-17) mg/dL Creatinine 1.60 H (0.52-1.04) mg/dL Glucose 119 H (74-99) mg/dL Calcium 8.0 L (8.4-10.2) mg/dL Iron 15 L (50-170) ug/dL % Saturation 6.15 L (12.00-45.00) Transferrin 179.0 L (204.0-354.0) mg/dL Alkaline Phosphatase 150 H (38-126) U/L Total Protein 5.9 L (6.3-8.2) g/dL Albumin 2.7 L (3.5-5.0) g/dL Vitamin B12 1069.0 H (200.0-944.0) pg/mL
[2022-02-02 15:51] VITALS: BMI 34.9
--- NOTE | 2022-02-02 19:15 | P.PN ---
Subjective Progress Note Date: 02/02/22 Principal diagnosis: mesenteric LAD Pt seen today in f/u patient continues to c/o of abd pain, still no BM, no vomiting so far today. Objective - Vital Signs Vital signs: Vital Signs Temp 98.3 F 02/02/22 08:00 Pulse 88 02/02/22 08:00 Resp 15 02/02/22 01:17 BP 113/75 02/02/22 08:00 Pulse Ox 95 02/02/22 08:00 FiO2 8 01/27/22 19:44 Intake & Output 02/01/22 02/02/22 02/02/22 18:59 06:59 18:59 Intake Total 1080 Balance 1080 Intake: Oral 1080 - Constitutional General appearance: Present: cooperative, mild distress, morbidly obese - EENT Eyes: Present: anicteric sclerae, EOMI ENT: Present: hearing grossly normal - Respiratory Details: respirations mildly labored with activity, recovers easily - Neurologic Neurologic: Present: CNII-XII intact - Musculoskeletal Musculoskeletal: Present: generalized weakness - Psychiatric Psychiatric: Present: A&O x's 3, appropriate affect, intact judgment & insight - Labs CBC & Chem 7: 02/01/22 09:57 02/02/22 12:27 Labs: Abnormal Lab Results - Last 24 Hours (Table) 02/01/22 02/01/22 02/02/22 Range/Units 09:57 09:57 12:27 Sodium 133 L (137-145) mmol/L Chloride 97 L (98-107) mmol/L BUN 39 H (7-17) mg/dL Creatinine 1.60 H (0.52-1.04) mg/dL Glucose 119 H (74-99) mg/dL Calcium 8.0 L (8.4-10.2) mg/dL Iron 15 L (50-170) ug/dL % Saturation 6.15 L (12.00-45.00) Transferrin 179.0 L (204.0-354.0) mg/dL Alkaline Phosphatase 150 H (38-126) U/L Total Protein 5.9 L (6.3-8.2) g/dL Albumin 2.7 L (3.5-5.0) g/dL Vitamin B12 1069.0 H (200.0-944.0) pg/mL RBC Folate 912 H (280 - 791) ng/mL Assessment and Plan Plan: Had the patient contact her daughter on face time. We discussed the pathology report, poorly differentiated adenocarcinoma, upper GI, pancreaticobiliary versus mullerian primary. Recommendation is to proceed with endoscopy-looking for a GI primary, MRCP- evaluate the liver/pancreas/biliary tree, tumor markers ordered. If no other source is identified after endoscopy and imaging, most likely origin is mullerian and patient will be referred to [facility] Oncology. All of the patient and her daughter's questions were answered to the best of my ability. Patient continues to have severe constipation with no bowel movement. Discussed with Nursing. Adding warm prune juice to the milk of magnesia. Having them contact the Surgeon to see if maybe the use of a suppository would be appropriate. Anemia workup positive for iron deficiency. Will plan for iron infusions. Time with Patient: Greater than 30
--- NOTE | 2022-02-02 20:41 | P.PN ---
Subjective Progress Note Date: 02/02/22 CHIEF COMPLAINT: Abdominal pain HISTORY OF PRESENT ILLNESS: The patient is a 76-year-old female with ongoing abdominal pain for over 2-3 weeks. She takes ReVia. Patient was initially admitted under medicine service more than 2 weeks ago and then readmitted within 24 hours following discharge as she complained of persistent left lower quadrant abdominal pain despite multiple diagnostic images without clear evidence of bowel obstruction or mass. Medicine team was following however patient requested discontinuation of service. She is status post diagnostic laparoscopy with omental biopsy and lysis of adhesions 01/27/2022. Intraoperative findings were suspicious for carcinoma involving the omentum and area of pain in the left lower quadrant. Today, pathology confirms poorly differentiated adenocarcinoma. Oncology has been following. Patient reports increased nausea. She is passing flatus. Patient had been requesting cathartics for constipation. Overnight this morning patient had nausea and vomiting which had improved. Per nursing, patient's family and primary care provider physician yard assistant is requesting transfer to [facility] for further care. ROS: No fevers or chills. No new chest pain. No productive sputum PHYSICAL EXAM: VITAL SIGNS: Reviewed CONSTITUTIONAL: Well developed and in no acute distress. EYES: Conjuctivae without sclera icterus. Extraocular movements grossly intact. HEAD, EARS, NOSE, THROAT: Head is atraumatic, normocephalic. Hears conver sational speech. No nasal drainage. RESPIRATORY: Non-labored respirations and equal bilateral excursions. CARDIOVASCULAR: 2+ radial pulses. ABDOMEN: Obese, protuberant. Mild tenderness left lower quadrant. Incisions intact right lateral abdominal wall. MUSCULOSKELETAL: No clubbing. No cyanosis. SKIN: Good skin turgor. Well perfused. NEUROLOGIC: Cranial nerves II through XII grossly intact. No focal or lateralizing signs. PSYCH: Flat affect. Alert and oriented to person, place and time. CLINICAL LABS: Reviewed. WBC 7.4 normal. Hemoglobin increased 8.7-10.4 without blood products. Creatinine up 1.2-1.6. STUDIES: Abdominal x-ray independent review demonstrates air-fluid levels with gas in the rectum. No free air. This is my independent interpretation. REPORTS: Abdominal x-ray reviewed with small bowel dilation. PATHOLOGY: Positive for poorly differential adenocarcinoma of ovarian, gastrointestinal or biliopancreatic source ASSESSMENT: 1. Chronic abdominal pain 2. History of gastric bypass 3. Peritoneal adhesions 4. 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 Ileus PLAN: 1. Oncology assessment appreciated witth request of upper and lower endoscopy. Patient recently completed upper endoscopy 2 weeks ago with dilation. We'll try to proceed with lower endoscopy as patient tolerates. 2. Adjustment of medications for nausea. 3. Extensive discussion via video conference performed with patient to her [id number] in the presence of physician yard assistant Re: Request for transfer. Her [id number], reports that she spoke to patient's primary provider physician yard assistant where [facility] transfer is being requested. I summarized patient's presentation to the hospital on readmission where diagnostic pleuroscopy was offered. New findings of adhesions suspicious for malignancy was described to the patient as a result oncology was consulted. As of today, final pathology confirms adenocarcinoma. Care plan discussed including oncology requesting additional studies of MRI including endoscopy. Patient's family expressed frustration of communication. Patient preferably contacted her son Demetrio in my presence regarding her ongoing care. Patient request honored with transfer to [facility]. Case management has begun transfer per family request. I personally spoke to admitting provider medicine regarding family wishes for transfer in light of new diagnosis of adenocarcinoma of the abdomen. Currently, colonoscopy pending and agreed with patient and her [id number]. At this time, pending bed availability at [facility]. Coordination of care, discussion with consultants, and management over 60 minutes performed. Objective - Vital Signs Vital signs: Vital Signs Temp 98.1 F 02/02/22 19:31 Pulse 79 02/02/22 19:31 Resp 16 02/02/22 19:31 BP 117/82 02/02/22 19:31 Pulse Ox 100 02/02/22 19:31 FiO2 8 01/27/22 19:44 Intake & Output 02/02/22 02/02/22 02/03/22 06:59 18:59 06:59 Weight 104.326 kg Other: # Voids 1 - Labs CBC & Chem 7: 02/01/22 09:57 02/02/22 12:27 Labs: Abnormal Lab Results - Last 24 Hours (Table) 02/01/22 02/02/22 Range/Units 09:57 12:27 Sodium 133 L (137-145) mmol/L Chloride 97 L (98-107) mmol/L BUN 39 H (7-17) mg/dL Creatinine 1.60 H (0.52-1.04) mg/dL Glucose 119 H (74-99) mg/dL Calcium 8.0 L (8.4-10.2) mg/dL Alkaline Phosphatase 150 H (38-126) U/L Total Protein 5.9 L (6.3-8.2) g/dL Albumin 2.7 L (3.5-5.0) g/dL RBC Folate 912 H (280 - 791) ng/mL
--- NOTE | 2022-02-02 20:41 | P.PN ---
Progress Note - Text Progress Note Date: 02/02/22 Notified by nursing patient unable to tolerate prep. Prep discontinued.
[2022-02-02] MEDS ORDERED: SODIUM CHLORIDE 0.9% 1,000 ML IV ONE (20:42)
[2022-02-02] MEDS: SODIUM FERRIC GLUCONAT-SUCROSE 125 MG in SODIUM CHLORIDE 0.9% 100 ML IVPB SCH (21:03)
[2022-02-02 22:56] LABS: Carcinoembryonic Antigen 22.6 ng/mL (0.0-4.9)
[2022-02-03] MEDS: METOCLOPRAMIDE 5 MG/ML 2 ML VIAL IVP SCH ×5 (00:44→23:00)
[2022-02-03] MEDS: ACETAMINOPHEN TAB 500 MG TAB PO SCH ×4 (00:44→17:56)
[2022-02-03] MEDS: SODIUM CHLORIDE 0.9% 1,000 ML IV SCH ×3 (00:49→15:44)
[2022-02-03] MEDS: HYDROmorphone 1 MG/ML 1 ML SYRINGE IVP PRN ×6 (05:21→22:57)
[2022-02-03] MEDS: LEVOTHYROXINE 75 MCG TAB PO SCH (05:22)
[2022-02-03] MEDS: HEPARIN SODIUM,PORCINE/PF 5,000 UNIT/0.5 ML SYRINGE SQ SCH ×2 (07:37→21:28)
[2022-02-03] MEDS: cloNIDine HCL 0.1 MG TAB PO SCH (07:39)
[2022-02-03] MEDS: PANTOPRAZOLE 40 MG TABLET PO SCH (07:39)
[2022-02-03] MEDS: SIMETHICONE 40 MG/0.6 ML DROPS 2,000 MG/30 ML BOTTLE PO SCH ×4 (07:40→21:29)
[2022-02-03] MEDS: ALBUTEROL NEBULIZED 2.5 MG/3 ML INHALATION PRN ×2 (08:02→20:54)
[2022-02-03 09:26] LABS: Basophils # (A) 0.05 X 10*3/uL (0.00-0.10); Basophils % (A) 0.6 %; Eosinophils % (A) 2.4 %; HCT 30.9 % (37.2-46.3); HGB 9.2 g/dL (12.0-15.0); Immature Grans, Automated 1.3 %; Lymphocytes % (A) 9.7 %; MCH 24.3 pg (27.0-32.0); MCHC 29.8 g/dL (32.0-37.0); MCV 81.7 fL (80.0-97.0); Mean Platelet Volume 11.5 fL (9.5-12.2); Monocytes # (A) 1.16 X 10*3/uL (0.20-1.00); Monocytes % (A) 14.1 %; NRBC Per 100 WBC 0 /100 WBCS (0.0-0.0); Neutrophils % (A) 71.9 %; Platelet Count 438 X 10*3/uL (140-440); RBC 3.78 X 10*6/uL (4.10-5.20); RDW 18.6 % (11.5-14.5); WBC 8.22 X 10*3/uL (4.50-10.00)
[2022-02-03 09:45] LABS: African American GFR (CKD) 36.4 (60.0-200.0); Albumin 2.3 g/dL (3.8-4.9); Albumin/Globulin Ratio 0.74 (1.60-3.17); Anion Gap 10.1 mmol/L (10.00-18.00); BUN/Creat Ratio 22.31 Ratio (12.00-20.00); Blood Urea Nitrogen 35.7 mg/dL (9.0-27.0); Calcium 7.9 mg/dL (8.7-10.3); Carbon Dioxide 25.9 mmol/L (20.0-27.5); Globulin 3.1 g/dL (1.6-3.3); Non-African American GFR(CKD) 31.4 (60.0-200.0); Potassium 5.1 mmol/L (3.5-5.5); Total Bilirubin 0.3 mg/dL (0.30-1.20); Total Protein 5.4 g/dL (6.2-8.2)
[2022-02-03] MEDS: SODIUM FERRIC GLUCONAT-SUCROSE 125 MG in SODIUM CHLORIDE 0.9% 100 ML IVPB SCH (10:22)
--- NOTE | 2022-02-03 11:20 | P.NPCON ---
History of Present Illness - Reason for Consult acute renal failure - History of Present Illness Reason for consultation: Acute kidney injury History of present illness: Patient is a 76-year-old female seen in consultation for acute kidney injury. Patient baseline creatinine is near 1 and peaked at 1.6 this admission. Patient has history of gastric bypass surgery. Patient had developed abdominal pain and underwent diagnostic laparoscopy with omental biopsy and lysis of additions on 01/27/2022. 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 Patient states her oral intake has been poor. Blood pressure has been running low in the systolic 90s. She received a liter bolus of normal saline yesterday evening and is currently maintained on normal saline at 100 mL an hour. She admits to good urine output. Denies hematuria or dysuria. She denies use of nonsteroidals. Denies history of diabetes. She was taking diuretic at home which is currently held. She is noted to be iron deficient and is receiving iron infusions. Denies chest pain or shortness of breath. No edema. Denies family history of renal disease. Complains of constipation. Vital signs are stable. General: Awake. No acute distress. HEENT: Head exam is unremarkable. LUNGS: Breath sounds decreased. HEART: Rate and Rhythm are regular. ABDOMEN: Soft, mild generalized tenderness. EXTREMITITES: No edema. Past Medical History Past Medical History: Hypertension History of Any Multi-Drug Resistant Organisms: None Reported Past Surgical History: Appendectomy, Cholecystectomy, Hernia Repair, Hysterectomy Additional Past Surgical History / Comment(s): gastro bypass Past Anesthesia/Blood Transfusion Reactions: No Reported Reaction Past Psychological History: No Psychological Hx Reported Smoking Status: Never smoker Past Alcohol Use History: Occasional Past Drug Use History: None Reported Medications and Allergies Home Medications Medication Instructions Recorded Confirmed Type Albuterol Sulfate [Ventolin HFA] 2 puff INHALATION RT-Q6H PRN 01/21/22 01/26/22 History Cyanocobalamin [Vitamin B-12 1,000 mcg SQ QMONTHLY 01/21/22 01/26/22 History Injection] Ergocalciferol (Vitamin D2) 1,250 mcg PO MO 01/21/22 01/26/22 History [Drisdol (50,000 Iu)] Folic Acid 1 mg PO DAILY 01/21/22 01/26/22 History Levothyroxine Sodium [Synthroid] 150 mcg PO DAILY 01/21/22 01/26/22 History Meclizine HCl 25 mg PO BID PRN 01/21/22 01/26/22 History Naltrexone HCl [Revia] 50 mg PO DAILY 01/21/22 01/26/22 History Pantoprazole [Protonix] 40 mg PO DAILY 01/21/22 01/26/22 History cloNIDine HCL [Catapres] 0.1 mg PO BID 01/21/22 01/26/22 History hydroCHLOROthiazide [Hydrodiuril] 12.5 mg PO DAILY 01/21/22 01/26/22 History Acetaminophen Tab [Tylenol] 650 mg PO Q6HR PRN tab 01/24/22 01/26/22 Rx Acetaminophen Tab [Tylenol Tab] 1,000 mg PO Q6HR PRN #30 tablet 01/28/22 Rx Simethicone [Gas-X] 125 mg PO AC-TID PRN #20 capsule 01/28/22 Rx Allergies Allergy/AdvReac Type Severity Reaction Status Date / Time nickel Allergy Rash/Hives Verified 01/26/22 15:53 ranitidine [From Zantac] Allergy Swelling Verified 01/26/22 15:53 Physical Exam Vitals: Vital Signs Temp Pulse Pulse Resp BP Pulse Ox 02/03/22 08:17 72 02/03/22 08:02 66 95 02/03/22 07:19 97.8 F 69 17 93/56 95 02/03/22 02:00 98.9 F 81 16 97/62 92 L 02/02/22 19:31 98.1 F 79 16 117/82 100 02/02/22 14:00 98.4 F 80 96/63 95 Intake and Output 02/02/22 02/03/22 02/03/22 22:59 06:59 14:59 Other: # Voids 1 1 Weight 104.326 kg Results - Lab Results Most recent lab results Calcium 7.9 mg/dL (8.7-10.3) L 02/03/22 05:26 Magnesium 2.4 mg/dL (1.5-2.4) 01/30/22 06:18 02/03/22 05:26 02/03/22 05:26 Assessment and Plan Plan: Assessment: 1. Acute kidney injury secondary to ATN secondary to hypotension. Baseline creatinine near 1 and peaked at 1.6 this admission. Creatinine stable at 1.6 today. CAT scan done on 01/21/2022 showed no evidence of hydronephrosis. UA with trace protein. UA dated 01/21/2022 showed no proteinuria. 2. 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 3. History of gastric bypass. 4. Anemia with iron deficiency receiving IV iron. 5. Ileus. Being followed by surgery. Plan: Maintain IV fluids. Stop clonidine. Check renal ultrasound. Check bladder scan to rule out urinary retention. Avoid nephrotoxins. Continue to monitor renal function and urine output. Thank you for the consultation. I will continue to follow patient with you during her hospital stay.
[2022-02-03] MEDS: PIPERACILLIN-TAZOBACTAM 3.375 GM in SODIUM CHLORIDE 0.9% 100 ML IVPB SCH ×2 (11:25→23:00)
[2022-02-03] MEDS ORDERED: PROPOFOL 10 MG/ML 20 ML VIAL IV ONE (11:31)
[2022-02-03] MEDS ORDERED: LIDOCAINE 2% INJ 20 MG/ML (2 ML VIAL) ONE (11:31)
[2022-02-03] MEDS ORDERED: IV FLUID CONTINUATION 1,000 ML IV ONE ×2 (11:34)
--- NOTE | 2022-02-03 11:42 | P.PN ---
Progress Note - Text Progress Note Date: 02/03/22 Additional discussion performed with patient she no longer wishes to be transferred as she was under pressure for family. I also spoke, including PCP Darlin Maza this morning 0810 hours with clarification that wishes for transfer is not initiated by the patient but by her family. Will proceed with colonoscopy for malignancy workup
--- NOTE | 2022-02-03 11:53 | P.PCN ---
Date of Procedure: 02/03/22 Description of Procedure: PREOPERATIVE DIAGNOSIS: Metastatic peritoneal cancer of unclear origin Chronic abdominal pain POSTOPERATIVE DIAGNOSIS: Fecal impaction OPERATION: Colonoscopy aborted due to fecal impaction Fecal disimpaction under anesthesia SURGEON: Minal Dumont MD. ANESTHESIA: MAC. INDICATIONS: The patient is a 76-year-old female who presents with new malignancy of the abdomen/peritoneum of unclear origin. Colonoscopy is requested by oncology for malignancy assessment. Benefits and risks were described and informed consent was obtained. DESCRIPTION OF PROCEDURE: The patient had undergone Sutab prep. The patient had been brought into the operating room and laid in the left lateral decubitus position. After adequate intravenous sedation, the rectum was examined with 2% lidocaine jelly. Moderate soft stool was found impacted in the rectum. Colonoscopy canceled. Fecal di simpaction over 100 g of stool removed. FINDINGS: Aronchick preparation quality scale 5 (1-5) Fecal impaction now disimpacted. RECOMMENDATIONS: 1. Milk of molasses enema advised after completion of MRI 2. Discussed with patient that due to metastatic disease of the abdominal peritoneum, chronic abdominal pain occurs.
--- NOTE | 2022-02-03 14:17 | US ---
EXAMINATION TYPE: US kidneys/renal and bladder DATE OF EXAM: 02/03/2022 COMPARISON: NONE CLINICAL HISTORY: [place] of unknown origin EXAM MEASUREMENTS: Right Kidney: 8.5 x 3.7 x 3.2 cm Left Kidney: 9.9 x 3.2 x 5.2 cm large boday habitus Right Kidney: small in size no hydronephrosis or nephrolithiasis. No solid or cystic mass. Left Kidney: limited views due to habitus and rib shadowing. Assessment for mass limited. No obvious hydronephrosis or nephrolithiasis. Bladder: not distended IMPRESSION: Limited exam demonstrates no evidence of hydronephrosis or nephrolithiasis.
--- NOTE | 2022-02-03 18:06 | P.PN ---
Subjective Progress Note Date: 02/03/22 Principal diagnosis: mesenteric LAD, adenocarcinoma Pt seen today in f/u patient. She continues to c/o of abd pain, generalized, she was trying to do the prep for colonoscopy yesterday, not much stool, still no significant BM, no vomiting today, she is using antiemetics. No fevers or bleeding, generalized weakness Objective - Vital Signs Vital signs: Vital Signs Temp 98.5 F 02/03/22 15:13 Pulse 70 02/03/22 15:13 Resp 16 02/03/22 15:13 BP 98/57 02/03/22 15:13 Pulse Ox 94 L 02/03/22 15:13 FiO2 8 01/27/22 19:44 Intake & Output 02/02/22 02/03/22 02/03/22 18:59 06:59 18:59 Intake Total 100 Balance 100 Weight 104.326 kg Intake: IV 100 Other: # Voids 1 1 3 - Constitutional General appearance: Present: cooperative, no acute distress, obese - EENT Eyes: Present: anicteric sclerae, EOMI ENT: Present: hearing grossly normal - Respiratory Details: resp even and unlabored - Gastrointestinal General gastrointestinal: Present: decreased bowel sounds (distant), soft, tenderness - Neurologic Neurologic: Present: CNII-XII intact - Musculoskeletal Musculoskeletal: Present: generalized weakness - Psychiatric Psychiatric: Present: A&O x's 3, appropriate affect, intact judgment & insight - Labs CBC & Chem 7: 02/03/22 05:26 02/03/22 05:26 Labs: Abnormal Lab Results - Last 24 Hours (Table) 02/02/22 02/02/22 02/03/22 Range/Units 15:07 15:07 05:26 RBC 3.78 L (4.10-5.20) X 10*6/uL Hgb 9.2 L (12.0-15.0) g/dL Hct 30.9 L (37.2-46.3) % MCH 24.3 L (27.0-32.0) pg MCHC 29.8 L (32.0-37.0) g/dL RDW 18.6 H (11.5-14.5) % Immature Gran # 0.11 H (0.00-0.04) X 10*3/uL Lymphocytes # 0.80 L (0.90-5.00) X 10*3/uL Monocytes # 1.16 H (0.20-1.00) X 10*3/uL Sodium (135-145) mmol/L BUN (9.0-27.0) mg/dL Creatinine (0.6-1.5) mg/dL Est GFR (CKD-EPI)AfAm (60.0-200.0) Est GFR (CKD-EPI)NonAf (60.0-200.0) BUN/Creatinine Ratio (12.00-20.00) Ratio Calcium (8.7-10.3) mg/dL Alkaline Phosphatase (41-126) U/L Total Protein (6.2-8.2) g/dL Albumin (3.8-4.9) g/dL Albumin/Globulin Ratio (1.60-3.17) g/dL Carcinoembryonic Ag 22.6 H (0.0-4.9) ng/mL CA 19-9 Antigen 114.0 H (0.0-34.9) U/mL CA 125 Antigen 164.0 H (0.0-30.1) U/mL 02/03/22 Range/Units 05:26 RBC (4.10-5.20) X 10*6/uL Hgb (12.0-15.0) g/dL Hct (37.2-46.3) % MCH (27.0-32.0) pg MCHC (32.0-37.0) g/dL RDW (11.5-14.5) % Immature Gran # (0.00-0.04) X 10*3/uL Lymphocytes # (0.90-5.00) X 10*3/uL Monocytes # (0.20-1.00) X 10*3/uL Sodium 134 L (135-145) mmol/L BUN 35.7 H (9.0-27.0) mg/dL Creatinine 1.6 H (0.6-1.5) mg/dL Est GFR (CKD-EPI)AfAm 36.4 L (60.0-200.0) Est GFR (CKD-EPI)NonAf 31.4 L (60.0-200.0) BUN/Creatinine Ratio 22.31 H (12.00-20.00) Ratio Calcium 7.9 L (8.7-10.3) mg/dL Alkaline Phosphatase 145 H (41-126) U/L Total Protein 5.4 L (6.2-8.2) g/dL Albumin 2.3 L (3.8-4.9) g/dL Albumin/Globulin Ratio 0.74 L (1.60-3.17) g/dL Carcinoembryonic Ag (0.0-4.9) ng/mL CA 19-9 Antigen (0.0-34.9) U/mL CA 125 Antigen (0.0-30.1) U/mL - Imaging and Cardiology US - abdomen: report reviewed Assessment and Plan Plan: New diagnosis of poorly differentiated adenocarcinoma, upper GI, pancreaticobiliary versus mullerian primary. Ascitic fluid + for same. Recommendation is to proceed with endoscopy-looking for a GI primary. Pt recently has EGD. Colonoscopy aborted because of fecal impaction, treatment of the same and future plan for procedure pending. MRCP ordered- evaluate the liver/pancreas/biliary tree. Tumor markers reviewed-all elevated but the level to which they are all elevated is non specific-any inflammation in the bowel/abd could raise these numbers. If no other source is identified after endoscopy and imaging, felt most likely o rigin is mullerian and patient will be referred to [facility]. Reinforced all of the above with pt. She verbalized understanding. No other questions at this time. Anemia workup positive for iron deficiency. Parenteral iron ordered.
--- NOTE | 2022-02-03 18:29 | P.PN ---
Progress Note - Text Progress Note Date: 02/03/22 Family and bedside including son and [id number] Maxine. Patient still complains of abdominal pain as expected. She reports decreased left lower quadrant pain. Complains also of upper abdominal pain. She is in better spirits. Family at bedside also notes that she clinically looks better today than yesterday. Patient also had a bowel movement felt more relieved. Diagnostic workup including findings of metastatic disease described. Metastases to the peritoneum can give chronic abdominal pain. Due to intraoperative findings and pending additional studies with MRCP, MRI, high likelihood of gynecological ovarian source. Patient and family agrees with continue diagnostic workup for malignancy. At this time, colonoscopy deferred due to fecal impaction. We'll proceed with milk of molasses enema after MRI completed.
[2022-02-04] MEDS: HYDROmorphone 1 MG/ML 1 ML SYRINGE IVP PRN ×6 (03:17→22:48)
[2022-02-04] MEDS: ACETAMINOPHEN TAB 500 MG TAB PO SCH ×5 (03:22→22:54)
[2022-02-04] MEDS: SODIUM CHLORIDE 0.9% 1,000 ML IV SCH ×2 (03:25→22:22)
[2022-02-04] MEDS: LEVOTHYROXINE 75 MCG TAB PO SCH (05:53)
[2022-02-04] MEDS: METOCLOPRAMIDE 5 MG/ML 2 ML VIAL IVP SCH ×4 (06:22→22:54)
[2022-02-04 06:45] LABS: African American GFR (CKD) 40 (>60 ml/min/1.73 sqM); Anion Gap 7 mmol/L; Blood Urea Nitrogen 39 mg/dL (7-17); Calcium 7.6 mg/dL (8.4-10.2); Carbon Dioxide 29 mmol/L (22-30); Chloride 99 mmol/L (98-107); Glucose 92 mg/dL (74-99); Magnesium 2.9 mg/dL (1.6-2.3); Non-African American GFR(CKD) 35 (>60 ml/min/1.73 sqM); Potassium 5.2 mmol/L (3.5-5.1); Sodium 135 mmol/L (137-145)
[2022-02-04] MEDS: ALBUTEROL NEBULIZED 2.5 MG/3 ML INHALATION PRN (08:04)
[2022-02-04] MEDS: HEPARIN SODIUM,PORCINE/PF 5,000 UNIT/0.5 ML SYRINGE SQ SCH ×2 (08:19→19:42)
[2022-02-04] MEDS: PANTOPRAZOLE 40 MG TABLET PO SCH (08:20)
[2022-02-04] MEDS: SODIUM FERRIC GLUCONAT-SUCROSE 125 MG in SODIUM CHLORIDE 0.9% 100 ML IVPB SCH (08:29)
[2022-02-04] MEDS: SIMETHICONE 40 MG/0.6 ML DROPS 2,000 MG/30 ML BOTTLE PO SCH ×4 (08:31→19:42)
[2022-02-04] MEDS: PIPERACILLIN-TAZOBACTAM 3.375 GM in SODIUM CHLORIDE 0.9% 100 ML IVPB SCH ×3 (09:39→22:54)
[2022-02-04] MEDS: ONDANSETRON 4 MG/2 ML VIAL IVP PRN (09:42)
--- NOTE | 2022-02-04 10:58 | P.PN ---
Subjective Progress Note Date: 02/04/22 Principal diagnosis: Adenocarconoma Recent EGD without findings Unable to handle prep for colonoscopy, awaiting MRCP and she originally want to plan for transfer to [facility] for [employer]ATION MANAGER onc eval although at this time agrees to stay in town and await further MRI evaluation MRCP scheduled for today Objective - Vital Signs Vital signs: Vital Signs Temp 99.4 F 02/04/22 07:28 Pulse 99 02/04/22 08:20 Resp 16 02/04/22 08:20 BP 114/74 02/04/22 07:28 Pulse Ox 94 L 02/04/22 08:04 FiO2 8 01/27/22 19:44 Intake & Output 02/03/22 02/04/22 02/04/22 18:59 06:59 18:59 Intake Total 100 Balance 100 Weight 104.326 kg Intake: IV 100 Other: Voiding Method Toilet # Voids 3 - Exam - Constitutional General appearance: Present: cooperative, no acute distress, obese - EENT Eyes: Present: anicteric sclerae, EOMI ENT: Present: hearing grossly normal - Respiratory Details: resp even and unlabored - Gastrointestinal General gastrointestinal: Present: decreased bowel sounds (distant), soft, tenderness - Neurologic Neurologic: Present: CNII-XII intact - Musculoskeletal Musculoskeletal: Present: generalized weakness - Psychiatric Psychiatric: Present: A&O x's 3, appropriate affect, intact judgment & insight - Labs CBC & Chem 7: 02/03/22 05:26 02/04/22 06:07 Labs: Abnormal Lab Results - Last 24 Hours (Table) 02/04/22 Range/Units 06:07 Sodium 135 L (137-145) mmol/L Potassium 5.2 H (3.5-5.1) mmol/L BUN 39 H (7-17) mg/dL Creatinine 1.47 H (0.52-1.04) mg/dL Calcium 7.6 L (8.4-10.2) mg/dL Magnesium 2.9 H (1.6-2.3) mg/dL Assessment and Plan (1) Partial small bowel obstruction Current Visit: Yes Status: Acute Code(s): K56.600 - PARTIAL INTESTINAL OBSTRUCTION, UNSPECIFIED TO CAUSE SNOMED Code(s): 506082543 (2) Adenocarcinoma carcinomatosis Narrative/Plan: - Unknown primary origina New diagnosis of poorly differentiated adenocarcinoma, Differentials include Ovarian/Uterine, upper GI, pancreaticobiliary versus mullerian primary. Ascitic fluid + for same. 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 Pt recently has EGD. Colonoscopy aborted because of fecal impaction, treatment of the same and future plan for procedure pending. MRCP ordered- evaluate the liver/pancreas/biliary tree. Tumor markers [id number] If no other source is identified after endoscopy and imaging, felt most likely origin is mullerian and patient will be referred to [facility] CONFIGURATION MANAGER Oncology. Parenteral iron Given for compoenent of Iron deficiency anemia Dr. Frank: Levon completed the full history and physical and developed the above impression and plan. Agree with above dictation, dictated as a ascribe Current Visit: Yes Status: Acute Code(s): C80.0 - DISSEMINATED MALIGNANT NEOPLASM, UNSPECIFIED SNOMED Code(s): 497853014 Plan: Adenocarcinoma, await MRCP and will plan on transfer if necessary at that point Physician Frank: I have completed the full history and physical and developed the above impression and plan, agree with dictation, dictated as a scribe
[2022-02-04] MEDS: MORPHINE SULFATE 2 MG/ML SYRINGE IVP PRN (12:04)
--- NOTE | 2022-02-04 12:25 | P.PN ---
Subjective Patient is seen in follow-up for acute kidney injury. Renal function improving. On IV fluids. Oral intake poor. Doesn't like Jello. Has been voiding. Vital signs are stable. General: No acute distress. HEENT: Head exam is unremarkable. LUNGS: Breath sounds decreased. HEART: Rate and Rhythm are regular. ABDOMEN: Soft, mild generalized tenderness. EXTREMITITES: No edema. Objective - Vital Signs Vital signs: Vital Signs Temp 99.4 F 02/04/22 07:28 Pulse 99 02/04/22 08:20 Resp 16 02/04/22 08:20 BP 114/74 02/04/22 07:28 Pulse Ox 94 L 02/04/22 08:04 FiO2 8 01/27/22 19:44 Intake & Output 02/03/22 02/04/22 02/04/22 18:59 06:59 18:59 Intake Total 100 Balance 100 Weight 104.326 kg Intake: IV 100 Other: Voiding Method Toilet # Voids 3 - Labs CBC & Chem 7: 02/03/22 05:26 02/04/22 06:07 Labs: Abnormal Lab Results - Last 24 Hours (Table) 02/04/22 Range/Units 06:07 Sodium 135 L (137-145) mmol/L Potassium 5.2 H (3.5-5.1) mmol/L BUN 39 H (7-17) mg/dL Creatinine 1.47 H (0.52-1.04) mg/dL Calcium 7.6 L (8.4-10.2) mg/dL Magnesium 2.9 H (1.6-2.3) mg/dL Assessment and Plan Plan: Assessment: 1. Acute kidney injury secondary to ATN secondary to hypotension. Baseline creatinine near 1 and peaked at 1.6 this admission - 1.47 today. CAT scan done on 01/21/2022 showed no evidence of hydronephrosis. UA with trace protein. UA dated 01/21/2022 showed no proteinuria. No hydronephrosis noted on kidney ultrasound. Right kidney atrophic. 2. 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 MRCP pending. 3. History of gastric bypass. 4. Anemia with iron deficiency s/p IV iron. 5. Ileus. Being followed by surgery. Plan: Maintain IV fluids - decrease rate to 50 mL an hour. Encouraged oral intake. Avoid nephrotoxins. Continue to monitor renal function and urine output.
--- NOTE | 2022-02-04 15:29 | XR ---
EXAMINATION TYPE: XR abdomen 2V DATE OF EXAM: 02/04/2022 COMPARISON: 02/01/2022 HISTORY: Pain TECHNIQUE: One view abdominal series FINDINGS: IVC filter seen with postsurgical changes. There is air overlying the liver similar to the prior exam likely representing pneumobilia. Dilated small bowel loops with air-fluid levels. Hypertrophic and d egenerative change of the spine. Subsegmental basilar consolidation. IMPRESSION: 1. Nonspecific abdomen correlate for bowel obstruction or severe ileus. 2. Correlate for pneumobilia. Findings similar to prior exam.
--- NOTE | 2022-02-04 16:26 | P.PN ---
Subjective Progress Note Date: 02/04/22 CHIEF COMPLAINT: Abdominal pain HISTORY OF PRESENT ILLNESS: Patient status post Robotic lysis of adhesions, omental excisional biopsy for pseudomyxoma peritonei, aspiration of peritoneal fluid/ascites for cell cytology. 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 Patient unable to complete the full colonoscopy due to poor prep and evidence of fecal impaction. She refused the medical molasses enema. At this time colonoscopy was placed on hold. Patient is complaining of abdominal pain and nausea. She did have a small amount of diarrhea yesterday. She is scheduled for an MRCP today. Abdominal x-ray completed shows nonspecific abdomen correlate for bowel obstruction or severe ileus. Correlate for pneumobilia. Findings similar to prior exam. X-ray resu lts were reviewed by Dr. Dumont. Patient seen by nephrology for acute kidney injury. Patient does have elevated tumor markers. Patient no longer wishes to be transferred to [facility]. She wants to continue care here at [facility]. Sodium 135 potassium 5.2 creatinine 1.47 PHYSICAL EXAM: VITAL SIGNS: Reviewed GENERAL: Well-developed in no acute distress. HEENT: No sclera icterus. Extraocular movements grossly intact. Moist buccal mucosa. Head is atraumatic, normocephalic. Hears conversational speech. No nasal drainage. NECK: Supple without lymphadenopathy. CHEST: Non-labored respirations and equal bilateral excursions. CARDIOVASCULAR: Palpable 2+ radial pulses. ABDOMEN: Soft. Nondistended. Diffuse tenderness MUSCULOSKELETAL: No clubbing or cyanosis. NEUROLOGIC: No focal or lateralizing signs. Cranial nerves II through XII grossly intact. PSYCH: Appropriate affect. Alert and oriented to person, place and time. SKIN: Well perfused. Good skin turgor. ASSESSMENT: 1. 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 Constipation 3. Abdominal ileus 4. 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 Patient is unable to tolerate bowel prep. As well as she does have diffuse pain which is likely related to her cancer. -Continue pain medication prescribed per oncology service -Continue oncology workup -Awaiting MRCP results -Continue Reglan for abdominal ileus -Appreciate oncology recommendations -Continue anti-emetics Physician Clinical Physician Assistant note has been reviewed by physician. Signing provider agrees with the documented findings, assessment, and plan of care. CHIEF COMPLAINT: Carcinomatosis with chronic abdominal pain HISTORY OF PRESENT ILLNESS: The patient is a 76-year-old female with ongoing chronic abdominal pain for over 2-3 weeks prior to admission. Due to prior history of bowel obstruction: History of gastric bypass, patient was taken to the operating room for diagnostic looposcopy. She is status post diagnostic laparoscopy with omental biopsy and lysis of adhesions 01/27/2022. Intraoperative findings were suspicious for carcinoma involving the omentum. Colonoscopy was aborted due to patient's fecal impaction. Oncology recommending MRCP to evaluate for pancreatic biliary source of malignancy. Additionally, patient canceled transfer to [facility] to continue additional care at facility. ROS: No fevers or chills. No new chest pain. No productive sputum PHYSICAL EXAM: VITAL SIGNS: Reviewed CONSTITUTIONAL: Well developed and in no acute distress. EYES: Conjuctivae without sclera icterus. Extraocular movements grossly intact. HEAD, EARS, NOSE, THROAT: Head is atraumatic, normocephalic. Hears conversational speech. No nasal drainage. RESPIRATORY: Non-labored respirations and equal bilateral excursions. CARDIOVASCULAR: 2+ radial pulses. ABDOMEN: Obese, protuberant. No peritonitis. Decreased tenderness left lower quadrant. Appropriate incisional tenderness right lateral abdominal wall. MUSCULOSKELETAL: No clubbing. No cyanosis. SKIN: Good skin turgor. Well perfused. NEUROLOGIC: Cranial nerves II through XII grossly intact. No focal or lateralizing signs. PSYCH: Flat affect. Alert and oriented to person, place and time. CLINICAL LABS: Reviewed. WBC normal, he 0.2. STUDIES: Abdominal x-ray independently reviewed without free air. This is my independent interpretation. REPORTS: Abdominal x-ray reviewed consistent with ileus. CELL CYTOLOGY: Consistent with metastatic adenocarcinoma. ASSESSMENT: 1. Chronic abdominal pain 2. History of gastric bypass 3. Peritoneal adhesions 4. 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 Ileus PLAN: 1. At this time, pending MRCP. 2. Colonoscopy on hold due to patient's intolerance of prep. 3. Goals of care plan pending oncology direction Objective - Vital Signs Vital signs: Vital Signs Temp 99.4 F 02/04/22 07:28 Pulse 99 02/04/22 08:20 Resp 16 02/04/22 08:20 BP 114/74 02/04/22 07:28 Pulse Ox 94 L 02/04/22 08:04 FiO2 8 01/27/22 19:44 Intake & Output 02/03/22 02/04/22 02/04/22 18:59 06:59 18:59 Intake Total 100 Balance 100 Weight 104.326 kg Intake: IV 100 Other: Voiding Method Toilet # Voids 3 - Labs CBC & Chem 7: 02/09/22 04:20 02/09/22 04:20 Labs: Abnormal Lab Results - Last 24 Hours (Table) 02/04/22 Range/Units 06:07 Sodium 135 L (137-145) mmol/L Potassium 5.2 H (3.5-5.1) mmol/L BUN 39 H (7-17) mg/dL Creatinine 1.47 H (0.52-1.04) mg/dL Calcium 7.6 L (8.4-10.2) mg/dL Magnesium 2.9 H (1.6-2.3) mg/dL
--- NOTE | 2022-02-04 19:29 | MR ---
EXAMINATION TYPE: MR liver wo/w con and mrcp DATE OF EXAM: 02/04/2022 COMPARISON: CT scan 01/21/2022 HISTORY: Adenocarcinoma unknown primary. Multiplanar multi echo imaging of the abdomen without and with IV contrast. The contrast was gadolini um 10 mL. FINDINGS: There is small bilateral pleural effusions. Pleural fluid appears new compared to old exams. There is moderate abdominal ascites similar to old exam. Liver has normal size and contour. There is some fullness of the biliary tree. No filling defects see n. There is cholecystectomy. Common bile duct measures up to 10 mm. There is mild ectasia of the intr ahepatic bile ducts. The pancreatic duct appears normal. No definite obstructing lesion seen. There i s some rounded low signal demonstrated in the mid common bile duct on the anterior aspect that could be air bubble. There is incomplete visualization of the mid common bile duct and it is not clear the etiology. I do not see any adjacent mass. There is no evidence of pancreatic mass. Spleen is intact. There is normal enhancement of the portal venous system. Liver shows no focal defect. No pathologic enhancement. There is normal enhancement of the kidneys. No hydronephrosis. No sign of retroperitoneal adenopathy. IMPRESSION: There is abdominal ascites without change. There are pleural effusions which are new compared to rece nt CT scan. Incomplete visualization of the mid common bile duct of uncertain significance. A stricture is possib le. There is mild ectasia of the intrahepatic bile ducts. Regular ERCP exam might be helpful for furt her evaluation. Because the intrahepatic bile ducts are prominent, an obstruction is certainly possib le. No evidence of a liver or pancreatic mass.
--- NOTE | 2022-02-04 20:28 | P.PN ---
Progress Note - Text Progress Note Date: 02/04/22 Results of MRI of the abdomen reviewed demonstrating no pancreaticoduodenal source of neoplasm. Overall findings highly likely with ovarian source and discussed with patient. At this time, colonoscopy on hold due to patient's intolerance of prep. Covering surgeon for this weekend reviewed. Discharge pending recommendations from oncology.
[2022-02-05] MEDS: HYDROmorphone 1 MG/ML 1 ML SYRINGE IVP PRN ×7 (02:16→22:02)
[2022-02-05] MEDS: ONDANSETRON 4 MG/2 ML VIAL IVP PRN (02:17)
[2022-02-05] MEDS: METOCLOPRAMIDE 5 MG/ML 2 ML VIAL IVP SCH ×4 (05:58→23:31)
[2022-02-05] MEDS: ACETAMINOPHEN TAB 500 MG TAB PO SCH ×4 (05:59→23:31)
[2022-02-05] MEDS: LEVOTHYROXINE 75 MCG TAB PO SCH (05:59)
[2022-02-05] MEDS: ALBUTEROL NEBULIZED 2.5 MG/3 ML INHALATION PRN (07:29)
[2022-02-05] MEDS: SIMETHICONE 40 MG/0.6 ML DROPS 2,000 MG/30 ML BOTTLE PO SCH ×4 (07:32→22:03)
[2022-02-05] MEDS: PIPERACILLIN-TAZOBACTAM 3.375 GM in SODIUM CHLORIDE 0.9% 100 ML IVPB SCH ×3 (07:32→23:31)
[2022-02-05] MEDS: PANTOPRAZOLE 40 MG TABLET PO SCH (07:32)
[2022-02-05] MEDS: HEPARIN SODIUM,PORCINE/PF 5,000 UNIT/0.5 ML SYRINGE SQ SCH ×2 (07:32→22:02)
[2022-02-05] MEDS: SODIUM CHLORIDE 0.9% 1,000 ML IV SCH (07:33)
--- NOTE | 2022-02-05 11:08 | P.PN ---
Subjective Patient is seen in follow-up for acute kidney injury. Renal function improving. On IV fluids. Admits to good urine output. Had 2 bowel movements yesterday. Requesting diet to be advanced. Vital signs are stable. General: No acute distress. HEENT: Head exam is unremarkable. LUNGS: Breath sounds decreased. HEART: Rate and Rhythm are regular. ABDOMEN: Soft, no tenderness. EXTREMITITES: No edema. Objective - Vital Signs Vital signs: Vital Signs Temp 98.5 F 02/05/22 07:54 Pulse 72 02/05/22 07:54 Resp 18 02/05/22 08:00 BP 110/64 02/05/22 07:54 Pulse Ox 100 02/05/22 07:54 FiO2 8 01/27/22 19:44 Intake & Output 02/04/22 02/05/22 02/05/22 18:59 06:59 18:59 Weight 104.326 kg Other: Voiding Method Toilet Toilet Toilet # Voids 4 2 # Bowel Movements 1 - Labs CBC & Chem 7: 02/03/22 05:26 02/04/22 06:07 Assessment and Plan Plan: Assessment: 1. Acute kidney injury secondary to ATN secondary to hypotension. Baseline creatinine near 1 and peaked at 1.6 this admission - 1.47 yesterday. CAT scan done on 01/21/2022 showed no evidence of hydronephrosis. UA with trace protein. UA dated 01/21/2022 showed no proteinuria. No hydronephrosis noted on kidney ultrasound. Right kidney atrophic. 2. 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 MRCP pending. 3. History of gastric bypass. 4. Anemia with iron deficiency s/p IV iron. 5. Ileus. Being followed by surgery. Diet advanced by surgery. Plan: Maintain IV fluids. Encouraged oral intake. Avoid nephrotoxins. Continue to monitor renal function and urine output. Morning labs pending.
[2022-02-05 11:22] LABS: Glucose,Whole Blood 98 mg/dL (75-99)
--- NOTE | 2022-02-05 11:53 | P.PN ---
Progress Note - Text Progress Note Date: 02/05/22 Patient states that her abdominal pain is improved. She's had a small bowel movement and flatus. She is hungry Mrs. to increase her diet. On exam vessels are still. Abdomen soft. Metastatic adenocarcinoma. Patient will have her diet advanced to full liquid diet.
[2022-02-06] MEDS: HYDROmorphone 1 MG/ML 1 ML SYRINGE IVP PRN ×8 (01:03→23:00)
[2022-02-06] MEDS: ALBUTEROL NEBULIZED 2.5 MG/3 ML INHALATION PRN ×2 (01:05→08:35)
[2022-02-06] MEDS: SODIUM CHLORIDE 0.9% 1,000 ML IV SCH (05:54)
[2022-02-06] MEDS: LEVOTHYROXINE 75 MCG TAB PO SCH (06:07)
[2022-02-06] MEDS: METOCLOPRAMIDE 5 MG/ML 2 ML VIAL IVP SCH ×4 (06:08→23:00)
[2022-02-06] MEDS: ACETAMINOPHEN TAB 500 MG TAB PO SCH ×4 (06:08→23:01)
[2022-02-06] MEDS: HEPARIN SODIUM,PORCINE/PF 5,000 UNIT/0.5 ML SYRINGE SQ SCH ×2 (07:11→21:34)
[2022-02-06] MEDS: SIMETHICONE 40 MG/0.6 ML DROPS 2,000 MG/30 ML BOTTLE PO SCH ×4 (07:12→21:34)
[2022-02-06] MEDS: PANTOPRAZOLE 40 MG TABLET PO SCH (07:12)
[2022-02-06] MEDS: PIPERACILLIN-TAZOBACTAM 3.375 GM in SODIUM CHLORIDE 0.9% 100 ML IVPB SCH ×3 (07:12→23:00)
[2022-02-06 07:21] LABS: African American GFR (CKD) 48 (>60 ml/min/1.73 sqM); Anion Gap 9 mmol/L; Blood Urea Nitrogen 31 mg/dL (7-17); Calcium 7.8 mg/dL (8.4-10.2); Carbon Dioxide 25 mmol/L (22-30); Chloride 103 mmol/L (98-107); Glucose 86 mg/dL (74-99); Non-African American GFR(CKD) 42 (>60 ml/min/1.73 sqM); Potassium 4.5 mmol/L (3.5-5.1); Sodium 137 mmol/L (137-145)
[2022-02-06] MEDS: ONDANSETRON 4 MG/2 ML VIAL IVP PRN ×4 (07:33→20:00)
--- NOTE | 2022-02-06 09:53 | P.PN ---
Subjective Patient is seen in follow-up for acute kidney injury. Renal function improving. On IV fluids. Admits to good urine output. Complains of stomach discomfort at the surgical site. Vital signs are stable. General: No acute distress. HEENT: Head exam is unremarkable. LUNGS: Breath sounds decreased. HEART: Rate and Rhythm are regular. ABDOMEN: Soft, epigastric tenderness present. EXTREMITITES: No edema. Objective - Vital Signs Vital signs: Vital Signs Temp 98.4 F 02/06/22 08:00 Pulse 80 02/06/22 08:47 Resp 16 02/06/22 07:30 BP 111/80 02/06/22 08:00 Pulse Ox 91 L 02/06/22 08:00 FiO2 8 01/27/22 19:44 Intake & Output 02/05/22 02/06/22 02/06/22 18:59 06:59 18:59 Other: Voiding Method Toilet Toilet Toilet - Labs CBC & Chem 7: 02/03/22 05:26 02/06/22 05:43 Labs: Abnormal Lab Results - Last 24 Hours (Table) 02/06/22 Range/Units 05:43 BUN 31 H (7-17) mg/dL Creatinine 1.27 H (0.52-1.04) mg/dL Calcium 7.8 L (8.4-10.2) mg/dL Assessment and Plan Plan: Assessment: 1. Acute kidney injury secondary to ATN secondary to hypotension. Baseline creatinine near 1 and peaked at 1.6 this admission -1.27 today. CAT scan done on 01/21/2022 showed no evidence of hydronephrosis. UA with trace protein. UA dated 01/21/2022 showed no proteinuria. No hydronephrosis noted on kidney ultrasound. Right kidney atrophic. 2. 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 MRCP enio way. 3. History of gastric bypass. 4. Anemia with iron deficiency s/p IV iron. 5. Ileus. Being followed by surgery. On full liquid diet. Plan: Maintain IV fluids. Encouraged oral intake. Avoid nephrotoxins. Continue to monitor renal function and urine output.
--- NOTE | 2022-02-06 12:08 | P.PN ---
Progress Note - Text Progress Note Date: 02/06/22 And has some complaints of right upper quadrant pain and a trocar site. The previously be a small hematoma the area is raised up. There is no significant ecchymosis. Abdomen soft. Patient has not had a significant bowel function. She is tolerating full liquids. Patient will continue to have supportive care.
--- NOTE | 2022-02-06 22:46 | P.PN ---
Subjective Progress Note Date: 02/06/22 the patient complains of intermittent abdominal pain and bloating. She is also having some intermittent constipation Objective - Vital Signs Vital signs: Vital Signs Temp 98.3 F 02/06/22 20:00 Pulse 90 02/06/22 20:00 Resp 16 02/06/22 20:00 BP 132/65 02/06/22 20:00 Pulse Ox 97 02/06/22 20:00 FiO2 8 01/27/22 19:44 Intake & Output 02/06/22 02/06/22 02/07/22 06:59 18:59 06:59 Other: Voiding Method Toilet Toilet - Constitutional General appearance: Present: no acute distress - EENT Eyes: Present: EOMI ENT: Present: hearing grossly normal - Respiratory Respiratory: bilateral: CTA - Cardiovascular Rhythm: regular Heart sounds: normal: S1, S2 - Gastrointestinal General gastrointestinal: Present: decreased bowel sounds, soft Localized gastrointestinal: tender: diffuse, RUQ - Integumentary Integumentary: Present: normal - Neurologic Neurologic: Present: CNII-XII intact - Musculoskeletal Musculoskeletal: Present: strength equal bilaterally - Psychiatric Psychiatric: Present: A&O x's 3, appropriate affect - Labs CBC & Chem 7: 02/03/22 05:26 02/06/22 05:43 Labs: Abnormal Lab Results - Last 24 Hours (Table) 02/06/22 Range/Units 05:43 BUN 31 H (7-17) mg/dL Creatinine 1.27 H (0.52-1.04) mg/dL Calcium 7.8 L (8.4-10.2) mg/dL Assessment and Plan (1) Adenocarcinoma carcinomatosis Narrative/Plan: at this time the patient has carcinomatosis from adenocarcinoma of unknown primary. Differential diagnoses for primary site include following, and tentatively, as well as ovarian - Patient's recent EGD has been negative. Her MRI results were discussed in detail with her. They show a possible abnormality in the common bile duct, either artifact, versus possible stricture. The patient does have a prior history of urinary obstruction requiring surgery. Therefore possible to findings, versus artifact, versus malignant stricture are still in the differential - . This was discussed in detail with the patient. gastroenterology will be consulted to evaluate the MRI. If they feel that the lesion could potentially be suspicious, she will likely be referred to a tertiary center for ERCP and biopsy. the case was discussed in detail with GI. - colonoscopy is still pending adequately prep Current Visit: Yes Status: Acute Code(s): C80.0 - DISSEMINATED MALIGNANT NEOPLASM, UNSPECIFIED SNOMED Code(s): 340811708
[2022-02-07] MEDS: SODIUM CHLORIDE 0.9% 1,000 ML IV SCH ×2 (02:15→21:42)
[2022-02-07] MEDS: HYDROmorphone 1 MG/ML 1 ML SYRINGE IVP PRN ×7 (02:27→21:25)
[2022-02-07] MEDS: ONDANSETRON 4 MG/2 ML VIAL IVP PRN ×4 (02:27→21:26)
[2022-02-07] MEDS: METOCLOPRAMIDE 5 MG/ML 2 ML VIAL IVP SCH ×3 (05:28→17:47)
[2022-02-07] MEDS: LEVOTHYROXINE 75 MCG TAB PO SCH (05:28)
[2022-02-07] MEDS: ACETAMINOPHEN TAB 500 MG TAB PO SCH ×3 (05:32→17:46)
[2022-02-07] MEDS: ALBUTEROL NEBULIZED 2.5 MG/3 ML INHALATION PRN ×2 (08:07→20:16)
[2022-02-07] MEDS: PANTOPRAZOLE 40 MG TABLET PO SCH (08:10)
[2022-02-07] MEDS: PIPERACILLIN-TAZOBACTAM 3.375 GM in SODIUM CHLORIDE 0.9% 100 ML IVPB SCH ×2 (08:10→15:35)
[2022-02-07] MEDS: HEPARIN SODIUM,PORCINE/PF 5,000 UNIT/0.5 ML SYRINGE SQ SCH ×2 (08:10→21:42)
[2022-02-07] MEDS: SIMETHICONE 40 MG/0.6 ML DROPS 2,000 MG/30 ML BOTTLE PO SCH (08:11)
[2022-02-07 10:23] LABS: Anisocytosis Slight; Basophils # (A) 0.1 k/uL (0-0.2); Basophils % (A) 1 %; Eosinophils # (A) 0.3 k/uL (0-0.7); Eosinophils % (A) 2 %; HCT 34.5 % (34.0-46.0); HGB 9.7 gm/dL (11.4-16.0); Hypochromasia Marked; Lymphocytes # (A) 0.9 k/uL (1.0-4.8); Lymphocytes % (A) 7 %; MCH 24.3 pg (25.0-35.0); MCV 86.8 fL (80.0-100.0); Mean Platelet Volume 8.5; Monocytes # (A) 0.8 k/uL (0-1.0); Monocytes % (A) 6 %; Neutrophils % (A) 82 %; Platelet Count 647 k/uL (150-450); RBC 3.98 m/uL (3.80-5.40); RDW 17.3 % (11.5-15.5); WBC 12.2 k/uL (3.8-10.6)
[2022-02-07] MEDS ORDERED: HYDROmorphone 1 MG/ML 1 ML SYRINGE IVP STA (10:23)
[2022-02-07 10:53] LABS: ALT 8 U/L (4-34); AST 21 U/L (14-36); African American GFR (CKD) 46 (>60 ml/min/1.73 sqM); Albumin 2.5 g/dL (3.5-5.0); Albumin/Globulin Ratio 0.8; Alkaline Phosphatase 126 U/L (38-126); Anion Gap 7 mmol/L; Blood Urea Nitrogen 28 mg/dL (7-17); Carbon Dioxide 25 mmol/L (22-30); Chloride 105 mmol/L (98-107); Globulin 3.2 g/dL; Glucose 97 mg/dL (74-99); Non-African American GFR(CKD) 40 (>60 ml/min/1.73 sqM); Potassium 4.6 mmol/L (3.5-5.1); Sodium 137 mmol/L (137-145); Total Bilirubin 0.2 mg/dL (0.2-1.3); Total Protein 5.7 g/dL (6.3-8.2)
[2022-02-07] MEDS ORDERED: IOPAMIDOL CONTRAST (ORAL USE) VIAL PO PRN ×2 (11:12→11:24)
--- NOTE | 2022-02-07 11:22 | P.PN ---
Subjective Progress Note Date: 02/07/22 CHIEF COMPLAINT: Abdominal pain HISTORY OF PRESENT ILLNESS: The patient is a 76-year-old female status post diagnostic laparoscopy with omental biopsy and lysis of adhesions 01/27/2022. Intraoperative findings were suspicious for carcinoma involving the omentum and area of pain in the left lower quadrant. Pathology consistent with poorly differentiated adenocarcinoma with carcinomatosis of unknown primary. Patient has been seen and followed by oncology. Today, patient reports increased dysphagia with previous history of gastric bypass. Additionally, patient reports increasing swelling of right upper abdominal seroma following malignant ascites. She reports appropriate low appetite which has been long-standing. She is requesting drainage of seroma of the right upper quadrant. Additionally, patient gives additional history of pre-existing, common bile duct obstruction 3 years ago where she was transferred to [facility] for urgent surgery. Findings and MRI consistent with pre-existing history of common bile duct obstruction 3 years ago. ROS: No fevers or chills. No new chest pain. No productive sputum. PHYSICAL EXAM: VITAL SIGNS: Reviewed CONSTITUTIONAL: Well developed and in no acute distress. EYES: Conjuctivae without sclera icterus. Extraocular movements grossly intact. HEAD, EARS, NOSE, THROAT: Head is atraumatic, normocephalic. Hears conversational speech. No nasal drainage. RESPIRATORY: Non-labored respirations and equal bilateral excursions. CARDIOVASCULAR: 2+ radial pulses. ABDOMEN: Obese, protuberant. Right upper abdominal swelling 8 x 5 cm consistent with seromas. MUSCULOSKELETAL: No clubbing. No cyanosis. SKIN: Good skin turgor. Well perfused. NEUROLOGIC: Cranial nerves II through XII grossly intact. No focal or lateralizing signs. PSYCH: Flat affect. Alert and oriented to person, place and time. CLINICAL LABS: Reviewed. WBC elevated 12.6. Creatinine elevated 1.24. Platelets elevated. STUDIES: MRI of liver independently reviewed demonstrating seroma of the anterior abdominal wall. This is my independent interpretation. Abdominal x-ray independent review of the findings of ileus with air within the rectum. This is my independent interpretation. REPORTS: MRI demonstrating questionable stricture of the common bile duct. PATHOLOGY: Positive for poorly differential adenocarcinoma of ovarian, gastrointestinal or biliopancreatic source ASSESSMENT: 1. 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 History of gastric bypass 3. Peritoneal adhesions 4. Chronic abdominal pain with malignant ascites 5. 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 Ileus 7. Thrombocytosis PLAN: 1. Oncology notes reviewed and per patient GI had discussed with her need for ERCP. Unfortunately due to gastric bypass, will need transfer to [facility] for ERCP and for additional malignancy workup including gynecology oncology. 2. Due to abdominal pain, abdominal seroma due to malignant ascites, we'll obtain CT of the chest abdomen and pelvis for additional metastatic workup. 3. Colonoscopy on hold due to patient's intolerance of oral cathartics. 4. Due to localized pain of abdominal seroma, ultrasound-guided drainage of seroma described. 5. PT INR being obtained including additional labs. Objective - Vital Signs Vital signs: Vital Signs Temp 98.4 F 02/07/22 08:00 Pulse 70 02/07/22 08:17 Resp 16 02/07/22 08:00 BP 111/70 02/07/22 08:00 Pulse Ox 94 L 02/07/22 08:00 FiO2 8 01/27/22 19:44 Intake & Output 02/06/22 02/07/22 02/07/22 18:59 06:59 18:59 Other: Voiding Method Toilet # Voids 2 - Labs CBC & Chem 7: 02/07/22 09:38 02/07/22 09:38 Labs: Abnormal Lab Results - Last 24 Hours (Table) 02/07/22 02/07/22 Range/Units 09:38 09:38 WBC 12.2 H (3.8-10.6) k/uL Hgb 9.7 L (11.4-16.0) gm/dL MCH 24.3 L (25.0-35.0) pg MCHC 28.0 L (31.0-37.0) g/dL RDW 17.3 H (11.5-15.5) % Plt Count 647 H (150-450) k/uL Neutrophils # 10.0 H (1.3-7.7) k/uL Lymphocytes # 0.9 L (1.0-4.8) k/uL BUN 28 H (7-17) mg/dL Creatinine 1.32 H (0.52-1.04) mg/dL Calcium 8.0 L (8.4-10.2) mg/dL Total Protein 5.7 L (6.3-8.2) g/dL Albumin 2.5 L (3.5-5.0) g/dL
--- NOTE | 2022-02-07 11:57 | P.PN ---
Subjective Patient is seen for follow-up for acute kidney injury. Patient is maintained on IV fluids. Renal function is improving. complaining of pain in the abdominal area Objective - Vital Signs Vital signs: Vital Signs Temp 98.4 F 02/07/22 08:00 Pulse 70 02/07/22 08:17 Resp 16 02/07/22 08:00 BP 111/70 02/07/22 08:00 Pulse Ox 94 L 02/07/22 08:00 FiO2 8 01/27/22 19:44 Intake & Output 02/06/22 02/07/22 02/07/22 18:59 06:59 18:59 Other: Voiding Method Toilet # Voids 2 - Exam Awake, comfortable, no acute distress Examination of the heart S1 and S2 Examination lungs bilateral breath sounds are heard Abdomen is soft tenderness noted in the upper abdomen Examination lower ex Mittie shows edema 1+ bilaterally E LEARNING [employer]GER exam is grossly intact - Labs CBC & Chem 7: 02/07/22 09:38 02/07/22 09:38 Labs: Abnormal Lab Results - Last 24 Hours (Table) 02/07/22 02/07/22 Range/Units 09:38 09:38 WBC 12.2 H (3.8-10.6) k/uL Hgb 9.7 L (11.4-16.0) gm/dL MCH 24.3 L (25.0-35.0) pg MCHC 28.0 L (31.0-37.0) g/dL RDW 17.3 H (11.5-15.5) % Plt Count 647 H (150-450) k/uL Neutrophils # 10.0 H (1.3-7.7) k/uL Lymphocytes # 0.9 L (1.0-4.8) k/uL BUN 28 H (7-17) mg/dL Creatinine 1.32 H (0.52-1.04) mg/dL Calcium 8.0 L (8.4-10.2) mg/dL Total Protein 5.7 L (6.3-8.2) g/dL Albumin 2.5 L (3.5-5.0) g/dL Assessment and Plan Assessment: 1. Acute kidney injury secondary to ATN from hypotension. Renal function improving. CT of the abdomen showed no evidence of hydronephrosis. UA shows trace protein. Right kidney is atrophic 2. 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 History of gastric bypass 4. Anemia with iron deficiency status post IV iron 5. Ileus being followed by surgery Plan: Check bladder scan rule out retention Repeat labs in a.m. and Continue to encourage increase oral intake
[2022-02-07 12:33] LABS: Prothrombin Time 10.9 sec (9.0-12.0)
--- NOTE | 2022-02-07 14:17 | P.CONS ---
History of Present Illness - Reason for Consult Consult date: 02/07/22 abnormal MRI Requesting physician: Angel Mccoy - Chief Complaint abdominal pain - History of Present Illness the ventricles and injury look similar everybody can't do right is a 76-year-old pleasant female who was recently admitted to the hospital a couple weeks ago with chest pain/epigastric pain. She has a previous history of hypertension, gastric bypass,CBD stone surgical extraction and bowel resection for bowel ischemia. During her previous admission she was seen by general surgery and Dr. Maldonado proceeded with a EGD with dilation on 01/23/2022.she was discharged on 01/24/2022. She came back to the emergency department on 01/26/2022 with complaints of abdominal pain mostly across her lower abdomen and up her left side. She was admitted under general surgery services for partial small bowel obstruction. On 01/27/2022 she underwentrobotic-assisted da Deangelo laparoscopic lysis of adhesions and oexcision biopsy as well as aspiration of peritoneal fluid for cell cytology. Cytology came back positivefor metastatic adenocarcinoma however primary is unknown. Patient had then been complaining of constipation, plan was for a colonoscopy on 02/03/2022 however patient had fecal impaction and the procedure was aborted. She had a liver MRI on 02/04/2022lab reporting abdominal ascites. Pleural effusions which are new compared to recent computed tomography scan. Incomplete visualization of mid common bile duct of uncertain significance. A stricture is possible. There is mild ectasia of the intrahepatic bile ducts. liver was reported normal size and contour. No filling defects seen. Common bile duct measures up to 10 mm. Mild ectasia of the intrahepatic bile ducts. Pancreatic duct appeared normal no definite obstructing lesion. Gastroenterology was consulted for possible biliary tract abnormality on MRI. The patient states she still has abdominal pain that is diffuse. Greatest pain is at her surgical incision site where she has some swelling noted. States her pain as a 6 out of 10. She denies any nausea or vomiting, fever, chills, chest pain or shortness of breath. Last reported bowel movement 4 days ago. WBC 12.2 hemoglobin 9.7 hematocrit 34 platelet count 647,000 INR 1.0 BUN 28 creatinine 1.32 total bilirubin 0.2 AST 21 ALT 8 alkaline phosphatase 126 Review of Systems REVIEW OF SYSTEMS: CARDIOPULMONARY: No chest pain or shortness of breath. Gastrointestinal: diffuse abdominal pain. Greatest in the right upper quadrant below surgical incision. Surgical incisions well approximated, right upper quadrant incision with swelling noted. No nausea or vomiting. No hematemesis, coffee-ground emesis. No rectal bleeding, or melena. GENITOURINARY: No dysuria or hematuria. MUSCULOSKELETAL: Reports normal range of motion., Joint pain. SKIN: No rashes. No jaundice. ENDOCRINE: No chills, fevers. No excessive weight gain or loss. No polydipsia or polyuria. PSYCHIATRIC: Unremarkable. NEUROLOGY: No change in mental status. Denies dizziness, headache. ENT: Vision unremarkable. CONSTITUTIONAL: No recent weight loss. No fever, chills, night sweats. Past Medical History Past Medical History: Hypertension History of Any Multi-Drug Resistant Organisms: None Reported Past Surgical History: Appendectomy, Cholecystectomy, Hernia Repair, Hysterectomy Additional Past Surgical History / Comment(s): gastro bypass Past Anesthesia/Blood Transfusion Reactions: No Reported Reaction Past Psychological History: No Psychological Hx Reported Smoking Status: Never smoker Past Alcohol Use History: Occasional Past Drug Use History: None Reported Medications and Allergies Home Medications Medication Instructions Recorded Confirmed Type Albuterol Sulfate [Ventolin HFA] 2 puff INHALATION RT-Q6H PRN 01/21/22 01/26/22 History Cyanocobalamin [Vitamin B-12 1,000 mcg SQ QMONTHLY 01/21/22 01/26/22 History Injection] Ergocalciferol (Vitamin D2) 1,250 mcg PO MO 01/21/22 01/26/22 History [Drisdol (50,000 Iu)] Folic Acid 1 mg PO DAILY 01/21/22 01/26/22 History Levothyroxine Sodium [Synthroid] 150 mcg PO DAILY 01/21/22 01/26/22 History Meclizine HCl 25 mg PO BID PRN 01/21/22 01/26/22 History Naltrexone HCl [Revia] 50 mg PO DAILY 01/21/22 01/26/22 History Pantoprazole [Protonix] 40 mg PO DAILY 01/21/22 01/26/22 History cloNIDine HCL [Catapres] 0.1 mg PO BID 01/21/22 01/26/22 History hydroCHLOROthiazide [Hydrodiuril] 12.5 mg PO DAILY 01/21/22 01/26/22 History Acetaminophen Tab [Tylenol] 650 mg PO Q6HR PRN tab 01/24/22 01/26/22 Rx Acetaminophen Tab [Tylenol Tab] 1,000 mg PO Q6HR PRN #30 tablet 01/28/22 Rx Simethicone [Gas-X] 125 mg PO AC-TID PRN #20 capsule 01/28/22 Rx Allergies Allergy/AdvReac Type Severity Reaction Status Date / Time nickel Allergy Rash/Hives Verified 01/26/22 15:53 ranitidine [From Zantac] Allergy Swelling Verified 01/26/22 15:53 Physical Exam Vitals: Vital Signs Temp Pulse Pulse Resp BP Pulse Ox 02/07/22 08:17 70 02/07/22 08:07 70 02/07/22 02:00 98.3 F 64 16 123/63 91 L 02/06/22 20:00 98.3 F 90 16 132/65 97 02/06/22 14:00 98.1 F 89 18 142/87 94 L Intake and Output 02/06/22 02/07/22 02/07/22 22:59 06:59 14:59 Other: # Voids 2 General appearance: The patient is alert, oriented, appears in no acute distress. HET: Head is normocephalic and atraumatic. Conjunctiva pink. Sclera anicteric. Neck: Supple without lymphadenopathy. Trachea midline. Heart: S1 S2. Regular rate and rhythm. Lungs: Clear to auscultation. Abdomen: Soft, diffuse tenderness to palpation, nondistended with decreased bowel sounds. Surgical incisions well approximated. Right upper quadrant surgical incision with swelling. No guarding or rigidity. Skin: No rashes. No jaundice. Extremities: Normal skin color and turgor. No pedal edema. Neurological: No focal deficits. Alert and oriented x3. Results CBC & Chem 7: 02/07/22 09:38 02/07/22 09:38 Comments: MRI on 02/04/2022lab reporting abdominal ascites. Pleural effusions which are new compared to recent computed tomography scan. Incomplete visualization of mid common bile duct of uncertain significance. A stricture is possible. There is mild ectasia of the intrahepatic bile ducts. liver was reported normal size and contour. No filling defects seen. Common bile duct measures up to 10 mm. Mild ectasia of the intrahepatic bile ducts. Pancreatic duct appeared normal no definite obstructing lesion. MRI - abdomen: report reviewed Assessment and Plan (1) Abnormal MRI, liver Narrative/Plan: 76-year-old female who was recently admitted, discharged and readmitted one day later with abdominal pain. She was admitted by the general surgery services and was evaluated for partial small bowel obstruction. She underwent a lysis of adhesions and omental excisional biopsy as well as aspiration of peritoneal fluid on 02-16 that showed metastatic adenocarcinoma. Unknown primary, possible ovarian, pancreatic GI tract per biopsy result. She did undergo an EGD on 01/23/2022 for abdominal pain at that time with dilation. Colonoscopy was attempted on 02/03/2022 but there was fecal impaction. Oncology is following patient. Patient underwent MRI of the liver that showed some fullness in the biliary tree with no filling defects noted. CBD measuring 10 mm mild ectasia of the intrahepatic bile ducts. This is all likely related to patient's previous history of CBD stone for which he underwent ERCP and then surgical extraction. LFTs are within normal limits and not consistent with a biliary obstruction. Gastroenterology does not feel ERCP/EUS is indicated at this time. In 10 units further workup per recommendations from oncology. Current Visit: Yes Status: Acute Code(s): R93.2 - ABNORMAL FINDINGS ON DX IMAGING OF LIVER AND BILIARY TRACT SNOMED Code(s): 720423403 (2) Metastatic adenocarcinoma Narrative/Plan: Elevated CA 19 9 at 114, CEA at 22.6, and CA 125 at 164. Oncology following closely Current Visit: Yes Status: Acute Code(s): C79.9 - SECONDARY MALIGNANT NEOPLASM OF UNSPECIFIED SITE SNOMED Code(s): 903057750128539 (3) Abdominal pain Current Visit: Yes Status: Acute Code(s): R10.9 - UNSPECIFIED ABDOMINAL PAIN SNOMED Code(s): 75171938 Plan: 1. Continue symptomatic and supportive care 2. Continue recommendations from oncology 3. MRI reviewed, likely findings are related to scar tissue from previous ERCP and CBD stone obstruction and surgical extraction. LFTs are within normal limits and not consistent with CBD obstruction, therefore ERCP/EUS not indicated. Thank you for this consultation, we will continue to follow. Dr. Elisabeth Hawk I agree with the dictator's note, documented as a scribe by Maylin Jurado.
[2022-02-07] MEDS: MORPHINE SULFATE 2 MG/ML SYRINGE IVP PRN ×2 (14:32→21:51)
--- NOTE | 2022-02-07 15:04 | CT ---
EXAMINATION TYPE: CT ChestAbdPelvis wo con DATE OF EXAM: 02/07/2022 COMPARISON: CT dated 01/21/2022 HISTORY: Abdominal pain CT DLP: 1494.8 mGycm. Automated Exposure Control for Dose Reduction was Utilized. TECHNIQUE: CT scan of the thorax, abdomen and pelvis is performed without IV contrast. FINDINGS: LUNGS: Bilateral pleural effusions with adjacent subsegmental pulmonary atelectasis. Patent trachea a nd main bronchi. MEDIASTINUM: There are no greater than 1 cm hilar or mediastinal lymph nodes. Coronary and arterial a therosclerotic calcifications. The pulmonary trunk measures 3.8 cm suggestive of pulmonary hypertensi on. The ascending aorta measures 4.1 cm. No pericardial effusion is seen. OTHER: 10 cm fluid collection is seen at the anterolateral aspect of the lower chest wall subcutaneo us fat, not appreciated previously. It could represent a seroma however a developing abscess cannot b e excluded. Bilateral body wall subcutaneous edema and fat stranding with tiny air bubble on the righ t side, not completely included in the scan. Inflammatory/infectious process at that location cannot be excluded. No gross aggressive bone lesion. LIVER/GB: Previous cholecystectomy. No definite hepatic focal lesion. PANCREAS: Fatty infiltration of the pancreatic head. SPLEEN: No significant abnormality is seen. ADRENALS: No significant abnormality is seen. KIDNEYS: No significant abnormality is seen. BOWEL: Gastrojejunostomy and small bowel anastomosis seen in the left side of the abdomen. The inges clay oral contrast is seen down to the small bowel anastomosis. Dilated small bowel loops measuring up to 3.4 cm, nonspecific. Fecal loading of the colon. Suboptimal assessment of the small and large bow el. Significant peritoneal fat stranding and peritoneal reflection thickening with moderate abdominal and pelvic ascites, peritonitis cannot be excluded. Localized fluid is seen in the pelvis without ma rginal enhancement, developing abscess is a possibility yet suboptimally assessed by this nonenhanced CT scan. Presacral fluid is also noted. REPRODUCTIVE ORGANS: Previous hysterectomy. No gross adnexal mass. LYMPH NODES: Scattered subcentimeter mesenteric lymph nodes, nonspecific. OSSEOUS STRUCTURES: No gross aggressive bone lesion. OTHER: Scattered arterial atherosclerotic calcification. Infrarenal IVC filter is seen in place. IMPRESSION: Significant fat stranding seen in the abdomen and the pelvis with peritoneal reflection thickening an d moderate ascites, peritonitis cannot be excluded, please correlate clinically. Nonspecific dilatation of small bowel loops, possibly reactive however mechanical small bowel obstruc tion or bowel ischemia cannot be excluded. There is no obvious abscess formation however developing abscess in the pelvis or along the body wall subcutaneous fat can't be excluded as detailed above. Recommend clinical correlation and surgical co nsultation. Other findings as described above.
--- NOTE | 2022-02-07 15:31 | P.PN ---
Subjective Progress Note Date: 02/07/22 Principal diagnosis: Adenocarconoma She is complaining of worsening abdominal pain and swelling. Objective - Vital Signs Vital signs: Vital Signs Temp 98.4 F 02/07/22 08:00 Pulse 70 02/07/22 08:17 Resp 16 02/07/22 08:00 BP 111/70 02/07/22 08:00 Pulse Ox 94 L 02/07/22 08:00 FiO2 8 01/27/22 19:44 Intake & Output 02/06/22 02/07/22 02/07/22 18:59 06:59 18:59 Other: Voiding Method Toilet # Voids 2 - Exam - Constitutional General appearance: Present: cooperative, no acute distress, obese - EENT Eyes: Present: anicteric sclerae, EOMI ENT: Present: hearing grossly normal - Respiratory Details: resp even and unlabored - Gastrointestinal General gastrointestinal: Present: decreased bowel sounds (distant), soft, tenderness palpable RUQ - Neurologic Neurologic: Present: CNII-XII intact - Musculoskeletal Musculoskeletal: Present: generalized weakness - Psychiatric Psychiatric: Present: A&O x's 3, appropriate affect, intact judgment & insight - Labs CBC & Chem 7: 02/07/22 09:38 02/07/22 09:38 Labs: Abnormal Lab Results - Last 24 Hours (Table) 02/07/22 02/07/22 Range/Units 09:38 09:38 WBC 12.2 H (3.8-10.6) k/uL Hgb 9.7 L (11.4-16.0) gm/dL MCH 24.3 L (25.0-35.0) pg MCHC 28.0 L (31.0-37.0) g/dL RDW 17.3 H (11.5-15.5) % Plt Count 647 H (150-450) k/uL Neutrophils # 10.0 H (1.3-7.7) k/uL Lymphocytes # 0.9 L (1.0-4.8) k/uL BUN 28 H (7-17) mg/dL Creatinine 1.32 H (0.52-1.04) mg/dL Calcium 8.0 L (8.4-10.2) mg/dL Total Protein 5.7 L (6.3-8.2) g/dL Albumin 2.5 L (3.5-5.0) g/dL Assessment and Plan (1) Partial small bowel obstruction Current Visit: Yes Status: Acute Code(s): K56.600 - PARTIAL INTESTINAL OBSTRUCTION, UNSPECIFIED TO CAUSE SNOMED Code(s): 245302035 (2) Adenocarcinoma carcinomatosis Narrative/Plan: - Unknown primary origina New diagnosis of poorly differentiated adenocarcinoma, Differentials include Ovarian/Uterine, upper GI, pancreaticobiliary versus mullerian primary. Ascitic fluid + for same. Plan transfer for [facility]OCAD TECHNICIAN ONc Evaluation to [facility] Recommendation is to proceed with endoscopy-looking for a GI primary. Pt recently has EGD. Colonoscopy aborted because of fecal impaction, treatment of the same and future plan for procedure pending. MRCP ordered- evaluate the liver/pancreas/biliary tree. Tumor markers [id number] If no other source is identified after endoscopy and imaging, felt most likely origin is mullerian and patient will be referred to AUTOCAD TECHNICIAN Oncology. Parenteral iron Given for compoenent of Iron deficiency anemia Dr. Frank: Levon completed the full history and physical and developed the above impression and plan. Agree with above dictation, dictated as a ascribe Current Visit: Yes Status: Acute Code(s): C80.0 - DISSEMINATED MALIGNANT NEOPLASM, UNSPECIFIED SNOMED Code(s): 536268062 Plan: Assessment and Plan (1) Adenocarcinoma carcinomatosis Narrative/Plan: at this time the patient has carcinomatosis from adenocarcinoma of unknown primary. - She is in a quite a bit of pain and have added a low dose fentanyl patch for her with cowel regimen Differential diagnoses for primary site include following, and tentatively, as well as ovarian - Patient's recent EGD has been negative. Her MRI results were discussed in detail with her yesterday by Dr. Mccoy. They show a possible abnormality in the common bile duct, either artifact, versus possible stricture. The patient does have a prior history of urinary obstruction requiring surgery. Therefore possible to findings, versus artifact, versus malignant stricture are still in the differential - . This was discussed in detail with the patient. gastroenterology was consulted to evaluate the MRI. They feel ERCP or EUS is not necessary at this time as this is likely scar tissue from prior procedure, in speaking with GI HYPERION ANALYST today. - colonoscopy is still pending adequately prep Current Visit: Yes Status: Acute Code(s): C80.0 - DISSEMINATED MALIGNANT NEOPLASM, UNSPECIFIED SNOMED Code(s): 434491689
[2022-02-07] MEDS: SENNOSIDES-DOCUSATE SODIUM 1 EACH TAB PO SCH (21:19)
[2022-02-08] MEDS: METOCLOPRAMIDE 5 MG/ML 2 ML VIAL IVP SCH ×5 (00:04→23:39)
[2022-02-08] MEDS: PIPERACILLIN-TAZOBACTAM 3.375 GM in SODIUM CHLORIDE 0.9% 100 ML IVPB SCH ×4 (00:12→23:41)
[2022-02-08] MEDS: ACETAMINOPHEN TAB 500 MG TAB PO SCH ×6 (00:12→23:45)
[2022-02-08] MEDS: HYDROmorphone 1 MG/ML 1 ML SYRINGE IVP PRN ×7 (00:18→21:53)
[2022-02-08] MEDS: ONDANSETRON 4 MG/2 ML VIAL IVP PRN ×4 (04:12→20:12)
[2022-02-08] MEDS: MORPHINE SULFATE 2 MG/ML SYRINGE IVP PRN ×4 (04:13→23:38)
[2022-02-08] MEDS: LEVOTHYROXINE 75 MCG TAB PO SCH (05:48)
[2022-02-08] MEDS: PANTOPRAZOLE 40 MG TABLET PO SCH (07:13)
[2022-02-08] MEDS: SENNOSIDES-DOCUSATE SODIUM 1 EACH TAB PO SCH ×2 (07:13→21:36)
[2022-02-08] MEDS: HEPARIN SODIUM,PORCINE/PF 5,000 UNIT/0.5 ML SYRINGE SQ SCH ×2 (07:13→20:12)
[2022-02-08] MEDS: ALBUTEROL NEBULIZED 2.5 MG/3 ML INHALATION PRN ×2 (08:28→19:54)
--- NOTE | 2022-02-08 09:10 | P.PN ---
Subjective Progress Note Date: 02/08/22 CHIEF COMPLAINT: Abdominal pain HISTORY OF PRESENT ILLNESS: The patient is a 76-year-old female status post diagnostic laparoscopy with omental biopsy and lysis of adhesions 01/27/2022. Over the weekend, patient reports increased abdominal pain including nausea. GI team consulted due to MRCP findings. ROS: No fevers or chills. No new chest pain. No productive sputum. PHYSICAL EXAM: VITAL SIGNS: Reviewed CONSTITUTIONAL: Well developed and in no acute distress. EYES: Conjuctivae without sclera icterus. Extraocular movements grossly intact. HEAD, EARS, NOSE, THROAT: Head is atraumatic, normocephalic. Hears conversational speech. No nasal drainage. RESPIRATORY: Non-labored respirations and equal bilateral excursions. CARDIOVASCULAR: 2+ radial pulses. ABDOMEN: Obese, protuberant. Right upper abdominal swelling 8 x 5 cm consistent with seroma. MUSCULOSKELETAL: No clubbing. No cyanosis. SKIN: Good skin turgor. Well perfused. NEUROLOGIC: Cranial nerves II through XII grossly intact. No focal or lateralizing signs. PSYCH: Alert and oriented to person, place and time. CLINICAL LABS: Reviewed. WBC elevated 12.6 to 14.9. STUDIES: CT of the chest abdomen and pelvis in the preoperative review confirming seroma of the right upper quadrant. No transition point for bowel obstruction. This is my interpretation. REPORT: CT of the abdomen and pelvis chest report also reviewed with peritoneal fluid and ascites. ASSESSMENT: 1. 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 History of gastric bypass 3. Peritoneal adhesions 4. Chronic abdominal pain with malignant ascites 5. 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 Ileus 7. Thrombocytosis PLAN: 1. Recommend drainage of seroma at right upper quadrant with interventional radiology 2. Will discuss with Dr. Mccoy regarding pain management. 3. GI team declined ERCP due to pre-existing history of common bile duct surgery and LFTs within normal limits. 4. Discharge including goals of care pending Oncology recommendations. Objective - Vital Signs Vital signs: Vital Signs Temp 98.9 F 02/08/22 08:00 Pulse 86 02/08/22 08:37 Resp 14 02/08/22 08:00 BP 117/69 02/08/22 08:00 Pulse Ox 91 L 02/08/22 08:00 FiO2 8 01/27/22 19:44 Intake & Output 02/07/22 02/08/22 02/08/22 18:59 06:59 18:59 Weight 104.326 kg Other: # Voids 5 - Labs CBC & Chem 7: 02/09/22 04:20 02/09/22 04:20 Labs: Abnormal Lab Results - Last 24 Hours (Table) 02/07/22 02/07/22 Range/Units 09:38 09:38 WBC 12.2 H (3.8-10.6) k/uL Hgb 9.7 L (11.4-16.0) gm/dL MCH 24.3 L (25.0-35.0) pg MCHC 28.0 L (31.0-37.0) g/dL RDW 17.3 H (11.5-15.5) % Plt Count 647 H (150-450) k/uL Neutrophils # 10.0 H (1.3-7.7) k/uL Lymphocytes # 0.9 L (1.0-4.8) k/uL BUN 28 H (7-17) mg/dL Creatinine 1.32 H (0.52-1.04) mg/dL Calcium 8.0 L (8.4-10.2) mg/dL Total Protein 5.7 L (6.3-8.2) g/dL Albumin 2.5 L (3.5-5.0) g/dL
--- NOTE | 2022-02-08 11:13 | P.PN ---
Subjective Patient is seen for follow-up for acute kidney injury. Patient is maintained on IV fluids. Renal function has improved with creatinine down to around 1.2-1.3 from 1.6 at peak Complaining of pain in the abdominal area Objective - Vital Signs Vital signs: Vital Signs Temp 98.9 F 02/08/22 08:00 Pulse 86 02/08/22 08:37 Resp 14 02/08/22 08:00 BP 117/69 02/08/22 08:00 Pulse Ox 91 L 02/08/22 08:00 FiO2 8 01/27/22 19:44 Intake & Output 02/07/22 02/08/22 02/08/22 18:59 06:59 18:59 Weight 104.326 kg Other: # Voids 5 - Exam Awake, comfortable, no acute distress Examination of the heart S1 and S2 Examination lungs bilateral breath sounds are heard Abdomen is soft tenderness noted in the upper abdomen Examination lower extremities shows edema 1+ bilaterally BENEFITS COORDINATOR exam is grossly intact - Labs CBC & Chem 7: 02/07/22 09:38 02/07/22 09:38 Assessment and Plan Assessment: 1. Acute kidney injury secondary to ATN from hypotension. Renal function improving. CT of the abdomen showed no evidence of hydronephrosis. UA shows trace protein. Right kidney is atrophic 2. 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 History of gastric bypass 4. Anemia with iron deficiency status post IV iron 5. Fluid collection noted in the pelvis area on CT scan, being followed by surgery Plan: Repeat labs in a.m. and Continue to encourage increase oral intake Continue with IV fluids
--- NOTE | 2022-02-08 13:11 | P.PN ---
Subjective Progress Note Date: 02/08/22 Principal diagnosis: This is a 76-year-old pleasant female who gastroenterology was consulted for possible biliary duct obstruction. MRI was reviewed, labs are not consistent with a biliary obstruction. No recommendations at this time for ERCP. Patient states she has continued abdominal pain. She is scheduled to undergo drainage of her seroma. She is pending transfer to [facility] for HALL CLEANER oncology evaluation. She remains afebrile, no nausea or vomiting. She does have a decreased appetite. Objective - Vital Signs Vital signs: Vital Signs Temp 98.9 F 02/08/22 08:00 Pulse 86 02/08/22 08:37 Resp 14 02/08/22 08:00 BP 117/69 02/08/22 08:00 Pulse Ox 91 L 02/08/22 08:00 FiO2 8 01/27/22 19:44 Intake & Output 02/07/22 02/08/22 02/08/22 18:59 06:59 18:59 Weight 104.326 kg Other: # Voids 5 - Exam General appearance: The patient is alert, oriented, appears in no acute distress. HET: Head is normocephalic and atraumatic. Conjunctiva pink. Sclera anicteric. Neck: Supple without lymphadenopathy. Abdomen: Soft, diffuse tenderness greatest over right upper quadrant of abdomen surrounding seroma, patient has abdominal binder in place. Extremities: Normal skin color and turgor. No pedal edema Skin: No rashes, no jaundice Neurological: No focal deficits. Alert and oriented x3. - Labs CBC & Chem 7: 02/07/22 09:38 02/07/22 09:38 Labs: Abnormal Lab Results - Last 24 Hours (Table) 02/07/22 02/07/22 Range/Units 09:38 09:38 WBC 12.2 H (3.8-10.6) k/uL Hgb 9.7 L (11.4-16.0) gm/dL MCH 24.3 L (25.0-35.0) pg MCHC 28.0 L (31.0-37.0) g/dL RDW 17.3 H (11.5-15.5) % Plt Count 647 H (150-450) k/uL Neutrophils # 10.0 H (1.3-7.7) k/uL Lymphocytes # 0.9 L (1.0-4.8) k/uL BUN 28 H (7-17) mg/dL Creatinine 1.32 H (0.52-1.04) mg/dL Calcium 8.0 L (8.4-10.2) mg/dL Total Protein 5.7 L (6.3-8.2) g/dL Albumin 2.5 L (3.5-5.0) g/dL Assessment and Plan (1) Abnormal MRI, liver Narrative/Plan: 76-year-old female who was recently admitted, discharged and readmitted one day later with abdominal pain. She was admitted by the general surgery services and was evaluated for partial small bowel obstruction. She underwent a lysis of adhesions and omental excisional biopsy as well as aspiration of peritoneal fluid on 02-16 that showed metastatic adenocarcinoma. Unknown primary, possible ovarian, pancreatic GI tract per biopsy result. She did undergo an EGD on 01/23/2022 for abdominal pain at that time with dilation. Colonoscopy was attempted on 02/03/2022 but there was fecal impaction. Oncology is following patient. Patient underwent MRI of the liver that showed some fullness in the biliary tree with no filling defects noted. CBD measuring 10 mm mild ectasia of the intrahepatic bile ducts. This is all likely related to patient's previous history of CBD stone for which he underwent ERCP and then surgical extraction. LFTs are within normal limits and not consistent with a biliary obstruction. G astroenterology does not feel ERCP/EUS is indicated at this time. In 10 units further workup per recommendations from oncology. Current Visit: Yes Status: Acute Code(s): R93.2 - ABNORMAL FINDINGS ON DX IMAGING OF LIVER AND BILIARY TRACT SNOMED Code(s): 899585625 (2) Metastatic adenocarcinoma Narrative/Plan: Elevated CA 19 9 at 114, CEA at 22.6, and CA 125 at 164. Oncology following closely Current Visit: Yes Status: Acute Code(s): C79.9 - SECONDARY MALIGNANT DENNIS PLASM OF UNSPECIFIED SITE SNOMED Code(s): 391297651760812 (3) Abdominal pain Current Visit: Yes Status: Acute Code(s): R10.9 - UNSPECIFIED ABDOMINAL PAIN SNOMED Code(s): 22752061 Plan: 1. Continue symptomatic and supportive care 2. Continue recommendations from oncology 3. MRI reviewed, likely findings are related to scar tissue from previous ERCP and CBD stone obstruction and surgical extraction. LFTs are within normal limits and not consistent with CBD obstruction, therefore ERCP/EUS not indicated. Plan is for patient to be transferred to [facility] for gynecologic/oncology evaluation. Awaiting bed availability. Thank you for this consultation, gastroenterology will sign off at this time. . Dr. Elisabeth Hawk I agree with the dictator's note, documented as a scribe by Maylin Jurado.
--- NOTE | 2022-02-08 13:27 | US ---
EXAMINATION TYPE: US peritoneal/retroperi drain DATE OF EXAM: 02/08/2022 HISTORY: Seroma postop FINDINGS: Maximal barrier technique was utilized. The skin overlying a suitable path to the fluid al kalia the anterior abdominal wall in the right upper quadrant was localized with ultrasound and the ove rlying skin prepped and draped. Lidocaine was used for local anesthesia. A skin marko made with a sc alpel. Access was gained under direct ultrasound guidance to the fluid with a 21-gauge needle. Ultra sound was utilized using sterile technique. A 0.018 inch wire was advanced. Access site was dilated and an 8.5-[place] catheter advanced into the seroma. 20 cc serous fluid returned and was obtained f or laboratory analysis. Catheter fixed to the skin. Hemostasis achieved. Catheter attached to gravi ty drainage. No immediate complication and the patient remained in stable condition. IMPRESSION: STATUS POST ULTRASOUND GUIDED SEROMA DRAINAGE, THIS PROCEDURE WAS PERFORMED BY THE UNDERS IGNED.
[2022-02-08 14:38] LABS: African American GFR (CKD) 38 (>60 ml/min/1.73 sqM); Anion Gap 7 mmol/L; Anisocytosis Slight; Basophils # (A) 0.2 k/uL (0-0.2); Basophils % (A) 1 %; Blood Urea Nitrogen 32 mg/dL (7-17); Carbon Dioxide 25 mmol/L (22-30); Chloride 105 mmol/L (98-107); Eosinophils # (A) 0.2 k/uL (0-0.7); Eosinophils % (A) 2 %; Glucose 107 mg/dL (74-99); HCT 35.6 % (34.0-46.0); HGB 10.3 gm/dL (11.4-16.0); Hypochromasia Marked; Lymphocytes # (A) 0.5 k/uL (1.0-4.8); Lymphocytes % (A) 3 %; MCH 24.9 pg (25.0-35.0); MCHC 28.8 g/dL (31.0-37.0); MCV 86.5 fL (80.0-100.0); Mean Platelet Volume 7.6; Monocytes # (A) 0.8 k/uL (0-1.0); Monocytes % (A) 5 %; Neutrophils # (A) 13.1 k/uL (1.3-7.7); Neutrophils % (A) 88 %; Non-African American GFR(CKD) 33 (>60 ml/min/1.73 sqM); Platelet Count 638 k/uL (150-450); Potassium 4.4 mmol/L (3.5-5.1); RBC 4.12 m/uL (3.80-5.40); RDW 17.7 % (11.5-15.5); Sodium 137 mmol/L (137-145); WBC 14.9 k/uL (3.8-10.6)
[2022-02-08] MEDS: SODIUM CHLORIDE 0.9% 1,000 ML IV SCH (17:06)
[2022-02-09 01:18] LABS: Amylase,Body Fluid 11 U/L
[2022-02-09] MEDS: HYDROmorphone 1 MG/ML 1 ML SYRINGE IVP PRN ×5 (02:15→20:30)
[2022-02-09] MEDS: ONDANSETRON 4 MG/2 ML VIAL IVP PRN ×2 (02:17→07:24)
[2022-02-09 02:24] LABS: Appearance,BF Slightly Cloudy
[2022-02-09] MEDS: ACETAMINOPHEN TAB 500 MG TAB PO SCH ×3 (05:31→18:28)
[2022-02-09] MEDS: METOCLOPRAMIDE 5 MG/ML 2 ML VIAL IVP SCH ×3 (05:54→20:49)
[2022-02-09] MEDS: LEVOTHYROXINE 75 MCG TAB PO SCH (05:54)
[2022-02-09 07:11] LABS: African American GFR (CKD) 35 (>60 ml/min/1.73 sqM); Anion Gap 7 mmol/L; Blood Urea Nitrogen 34 mg/dL (7-17); Carbon Dioxide 24 mmol/L (22-30); Chloride 107 mmol/L (98-107); Glucose 101 mg/dL (74-99); Non-African American GFR(CKD) 30 (>60 ml/min/1.73 sqM); Potassium 4.6 mmol/L (3.5-5.1); Sodium 138 mmol/L (137-145)
[2022-02-09 07:29] LABS: Anisocytosis Slight; Basophils # (A) 0.1 k/uL (0-0.2); Basophils % (A) 1 %; Eosinophils # (A) 0.2 k/uL (0-0.7); Eosinophils % (A) 2 %; HCT 32.5 % (34.0-46.0); HGB 9.4 gm/dL (11.4-16.0); Hypochromasia Marked; Lymphocytes # (A) 0.6 k/uL (1.0-4.8); Lymphocytes % (A) 5 %; MCV 86.1 fL (80.0-100.0); Mean Platelet Volume 9.5; Monocytes % (A) 8 %; Neutrophils # (A) 11.7 k/uL (1.3-7.7); Neutrophils % (A) 85 %; Platelet Count 627 k/uL (150-450); RBC 3.78 m/uL (3.80-5.40); RDW 17.9 % (11.5-15.5); WBC 13.7 k/uL (3.8-10.6)
--- NOTE | 2022-02-09 09:04 | P.PN ---
Subjective Progress Note Date: 02/09/22 CHIEF COMPLAINT: Carcinomatosis HISTORY OF PRESENT ILLNESS: The patient is a 76-year-old female status post diagnostic laparoscopy with omental biopsy and lysis of adhesions 01/27/2022 and new diagnosis of metastatic carcinomatosis of unknown primary with poorly differentiated adenocarcinoma. Oncology following. Patient describes having nausea last night including chronic pain. Interventional radiology placed drain at right upper quadrant swelling for seroma due to tracking of intra-abdominal malignant ascites. She reports her right upper quadrant pain has improved. She complains of swelling of the legs. ROS: No fevers or chills. No new chest pain. No productive sputum. PHYSICAL EXAM: VITAL SIGNS: Reviewed CONSTITUTIONAL: Well developed and in no acute distress. EYES: Conjuctivae without sclera icterus. Extraocular movements grossly intact. HEAD, EARS, NOSE, THROAT: Head is atraumatic, normocephalic. Hears conversational speech. No nasal drainage. RESPIRATORY: Non-labored respirations and equal bilateral excursions. CARDIOVASCULAR: 2+ radial pulses. ABDOMEN: Obese, protuberant. Serosanguineous drainage from drainage catheter at left upper quadrant. MUSCULOSKELETAL: No clubbing. No cyanosis. SKIN: Good skin turgor. Well perfused. NEUROLOGIC: Cranial nerves II through XII grossly intact. No focal or lateralizing signs. PSYCH: Alert and oriented to person, place and time. CLINICAL LABS: Reviewed. WBC elevated down from 14.9-13.7. Creatinine elevated from 1.56-1.66.. Platelets elevated and down from 647-627. ASSESSMENT: 1. 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 History of gastric bypass 3. Peritoneal adhesions 4. Chronic abdominal pain with malignant ascites due to carcinomatosis 5. 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 Ileus 7. Thrombocytosis 8. Leukocytosis 9. Renal insufficiency 10. Carcinomatosis 11. Intractable nausea and vomiting due to carcinomatosis 12. Dysphagia PLAN: 1. I had an extensive discussion with patient regarding conversation with Dr. Mccoy oncologist. Recommendations include upper and lower endoscopy to exclude gastrointestinal malignancy. 2. At this time, unlikely pancreaticobiliary source as LFTs are in normal limits and no obstruction from blood work. 3. Patient reports chronic nausea and pain. I discussed with her that due to disease pathology, nausea and chronic abdominal pain or consistent with progression of carcinomatosis of the abdomen. Will need oncology follow-up for chronic nausea and pain meds. 4. Patient encouraged for oral intake. 5. Will replace midline per discussion with nursing as her current is leaking. 6. Will proceed with repeat upper and lower endoscopy tomorrow to address gastrointestinal malignancy including pre-existing dysphagia. 7. Patient reports no bowel movement in 3 days. Will do enemas. 8. Discharge planning with social work, home health care, coordination care managers for anticipated discharge in 24-48 hours pending completion of upper or lower endoscopy and improvement of abdominal pain and nausea. Coordination of care, discussion with consultants, and care plan over 50 minutes performed Objective - Vital Signs Vital signs: Vital Signs Temp 97.9 F 02/09/22 08:00 Pulse 91 02/09/22 08:00 Resp 17 02/09/22 08:00 BP 134/88 02/09/22 08:00 Pulse Ox 95 02/09/22 08:00 FiO2 8 01/27/22 19:44 Intake & Output 02/08/22 02/09/22 02/09/22 18:59 06:59 18:59 Intake Total 500 Output Total 315 Balance 185 Intake: Intake, IV Titration 500 Amount Piperacillin-Tazobactam 3 100 .375 gm In Sodium Chloride 0.9% 100 ml @ 25 mls/hr IVPB Q8HR JACKIE Rx# :[id number] Sodium Chloride 0.9% 1, 400 000 ml @ 50 mls/hr IV . Q20H JACKIE Rx#:[id number] Output: Drainage 15 Right Abdomen 15 Urine 100 Emesis 200 Other: # Voids 5 3 - Labs CBC & Chem 7: 02/09/22 04:20 02/09/22 04:20 Labs: Abnormal Lab Results - Last 24 Hours (Table) 02/08/22 02/08/22 02/09/22 Range/Units 14:10 14:10 04:20 WBC 14.9 H 13.7 H (3.8-10.6) k/uL RBC 3.78 L (3.80-5.40) m/uL Hgb 10.3 L 9.4 L (11.4-16.0) gm/dL Hct 32.5 L (34.0-46.0) % MCH 24.9 L (25.0-35.0) pg MCHC 28.8 L 29.0 L (31.0-37.0) g/dL RDW 17.7 H 17.9 H (11.5-15.5) % Plt Count 638 H 627 H (150-450) k/uL Neutrophils # 13.1 H 11.7 H (1.3-7.7) k/uL Lymphocytes # 0.5 L 0.6 L (1.0-4.8) k/uL BUN 32 H (7-17) mg/dL Creatinine 1.56 H (0.52-1.04) mg/dL Glucose 107 H (74-99) mg/dL Calcium 8.0 L (8.4-10.2) mg/dL 02/09/22 Range/Units 04:20 WBC (3.8-10.6) k/uL RBC (3.80-5.40) m/uL Hgb (11.4-16.0) gm/dL Hct (34.0-46.0) % MCH (25.0-35.0) pg MCHC (31.0-37.0) g/dL RDW (11.5-15.5) % Plt Count (150-450) k/uL Neutrophils # (1.3-7.7) k/uL Lymphocytes # (1.0-4.8) k/uL BUN 34 H (7-17) mg/dL Creatinine 1.66 H (0.52-1.04) mg/dL Glucose 101 H (74-99) mg/dL Calcium 8.0 L (8.4-10.2) mg/dL Microbiology - Last 24 Hours (Table) 02/08/22 12:05 Gram Stain - Preliminary Aspirate Body Fluid Culture - Preliminary 02/08/22 12:05 Fungal Culture - Preliminary Aspirate 02/08/22 12:05 Anaerobic Culture - Preliminary Aspirate
[2022-02-09] MEDS ORDERED: POLYETHYLENE GLYCOL LYTES SOLN 4,000 ML SOLN.RECON PO ONE (09:05)
--- NOTE | 2022-02-09 10:03 | P.PN ---
Subjective Patient is seen for follow-up for acute kidney injury. Patient is maintained on IV fluids. Renal function eller had improved serum creatinine down to about 1.2-1.3 however over the last couple of days serum creatinine has been rising again. Complaining of pain in the abdominal area Nausea persists as well Objective - Vital Signs Vital signs: Vital Signs Temp 97.9 F 02/09/22 08:00 Pulse 91 02/09/22 08:00 Resp 17 02/09/22 08:00 BP 134/88 02/09/22 08:00 Pulse Ox 95 02/09/22 08:00 FiO2 8 01/27/22 19:44 Intake & Output 02/08/22 02/09/22 02/09/22 18:59 06:59 18:59 Intake Total 500 Output Total 315 Balance 185 Intake: Intake, IV Titration 500 Amount Piperacillin-Tazobactam 3 100 .375 gm In Sodium Chloride 0.9% 100 ml @ 25 mls/hr IVPB Q8HR [facility] Rx# :[id number] Sodium Chloride 0.9% 1, 400 000 ml @ 50 mls/hr IV . Q20H [facility] Rx#:[id number] Output: Drainage 15 Right Abdomen 15 Urine 100 Emesis 200 Other: # Voids 5 3 - Exam Awake, comfortable, no acute distress Examination of the heart S1 and S2 Examination lungs bilateral breath sounds are heard Abdomen is soft tenderness noted in the upper abdomen Examination lower extremities shows edema 2+ bilaterally OUTDOOR STUDIES PROFESSOR exam is grossly intact - Labs CBC & Chem 7: 02/09/22 04:20 02/09/22 04:20 Labs: Abnormal Lab Results - Last 24 Hours (Table) 02/08/22 02/08/22 02/09/22 Range/Units 14:10 14:10 04:20 WBC 14.9 H 13.7 H (3.8-10.6) k/uL RBC 3.78 L (3.80-5.40) m/uL Hgb 10.3 L 9.4 L (11.4-16.0) gm/dL Hct 32.5 L (34.0-46.0) % MCH 24.9 L (25.0-35.0) pg MCHC 28.8 L 29.0 L (31.0-37.0) g/dL RDW 17.7 H 17.9 H (11.5-15.5) % Plt Count 638 H 627 H (150-450) k/uL Neutrophils # 13.1 H 11.7 H (1.3-7.7) k/uL Lymphocytes # 0.5 L 0.6 L (1.0-4.8) k/uL BUN 32 H (7-17) mg/dL Creatinine 1.56 H (0.52-1.04) mg/dL Glucose 107 H (74-99) mg/dL Calcium 8.0 L (8.4-10.2) mg/dL 02/09/22 Range/Units 04:20 WBC (3.8-10.6) k/uL RBC (3.80-5.40) m/uL Hgb (11.4-16.0) gm/dL Hct (34.0-46.0) % MCH (25.0-35.0) pg MCHC (31.0-37.0) g/dL RDW (11.5-15.5) % Plt Count (150-450) k/uL Neutrophils # (1.3-7.7) k/uL Lymphocytes # (1.0-4.8) k/uL BUN 34 H (7-17) mg/dL Creatinine 1.66 H (0.52-1.04) mg/dL Glucose 101 H (74-99) mg/dL Calcium 8.0 L (8.4-10.2) mg/dL Microbiology - Last 24 Hours (Table) 02/08/22 12:05 Gram Stain - Preliminary Aspirate Body Fluid Culture - Preliminary 02/08/22 12:05 Fungal Culture - Preliminary Aspirate 02/08/22 12:05 Anaerobic Culture - Preliminary Aspirate Assessment and Plan Assessment: 1. Acute kidney injury secondary to ATN from hypotension. Renal function had improved but worse again over the last couple of days. Blood pressure had been low early this morning. Rule out urine retention. CT of the abdomen showed no evidence of hydronephrosis. UA shows trace protein. Right kidney is atrophic 2. 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 History of gastric bypass 4. Anemia with iron deficiency status post IV iron 5. Fluid collection noted in the pelvis area on CT scan, being followed by surgery Plan: Continue to encourage increase oral intake Patient is not eating much. Her lower extremity edema could be related to underlying abdominal pathology and third spacing. Albumin is low at 2.5 Overall prognosis is guarded.
[2022-02-09] MEDS: SCOPOLAMINE 1 MG/72 HR PATCH TRANSDERM SCH (10:18)
[2022-02-09] MEDS: PANTOPRAZOLE 40 MG TABLET PO SCH (10:19)
[2022-02-09] MEDS: HEPARIN SODIUM,PORCINE/PF 5,000 UNIT/0.5 ML SYRINGE SQ SCH ×2 (10:20→22:42)
[2022-02-09] MEDS: SENNOSIDES-DOCUSATE SODIUM 1 EACH TAB PO SCH ×2 (10:20→22:42)
[2022-02-09] MEDS: MORPHINE SULFATE 2 MG/ML SYRINGE IVP PRN (10:30)
[2022-02-09] MEDS: SODIUM CHLORIDE 0.9% 1,000 ML IV SCH (11:44)
[2022-02-09] MEDS: PIPERACILLIN-TAZOBACTAM 3.375 GM in SODIUM CHLORIDE 0.9% 100 ML IVPB SCH ×2 (12:16→20:52)
[2022-02-09] MEDS ORDERED: HYDROmorphone 1 MG/ML 1 ML SYRINGE IVP STA (13:20)
[2022-02-09] MEDS ORDERED: IOPAMIDOL CONTRAST (ORAL USE) VIAL PO PRN (13:26)
[2022-02-09] MEDS: ONDANSETRON 4 MG/2 ML VIAL IVP SCH ×2 (14:01→20:49)
[2022-02-09] MEDS ORDERED: LORazepam 1 MG TAB PO STA (18:14)
[2022-02-09] MEDS ORDERED: LORazepam 2 MG/ML INJ IM PRN (19:03)
--- NOTE | 2022-02-09 19:26 | P.PN ---
Subjective Progress Note Date: 02/09/22 CHIEF COMPLAINT: Carcinomatosis HISTORY OF PRESENT ILLNESS: The patient is a 76-year-old female who initially was admitted to the hospital with abdominal pain for risk of bowel obstruction. She underwent diagnostic laparoscopy. She is status post diagnostic laparoscopy with omental biopsy and lysis of adhesions 01/27/2022. Intraoperative findings were suspicious for carcinoma involving the omentum with malignant ascites. 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 Patient reevaluated this evening with oncology nurse practitioner. Oncology is managing her pain for which she's been started on fentanyl. Patient's [id number] at bedside. Patient now verbalizes that her midline has been leaking. A new midline was placed of the contralateral arm of the left arm also now not functioning. Patient has chronic pre-existing abdominal pain and is on regimen of cycled morphine, Dilaudid, fentanyl patches. Additionally, patient has nausea. Per discussion with nursing, patient did obtain scopolamine patch. Patient also reports that she is unable to swallow her pills. 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 Patient reports she cannot tolerate her prep. She had a bowel movement after my rounding from early this morning. Patient also complains of swelling of the bilateral lower extremities. Creatinine function has worsened. Nephrology on consult. Overall, patient unable to tolerate bowel prep to proceed with colonoscopy. Patient had decline also enema due to abdominal pain. Patient was scheduled for upper endoscopy and colonoscopy tomorrow. ROS: No fevers or chills. No new chest pain. No productive sputum. PHYSICAL EXAM: VITAL SIGNS: Reviewed CONSTITUTIONAL: Well developed and in no acute distress. EYES: Conjuctivae without sclera icterus. Extraocular movements grossly intact. HEAD, EARS, NOSE, THROAT: Head is atraumatic, normocephalic. Hears conversation al speech. No nasal drainage. RESPIRATORY: Non-labored respirations and equal bilateral excursions. CARDIOVASCULAR: 2+ radial pulses. ABDOMEN: Obese, protuberant. Drainage catheter at right upper quadrant at bedside with serosanguineous drainage 5 mL in 10-12 hours. MUSCULOSKELETAL: No clubbing. No cyanosis. SKIN: Good skin turgor. Well perfused. NEUROLOGIC: Cranial nerves II through XII grossly intact. No focal or lateralizing signs. PSYCH: Alert and oriented to person, place and time. CLINICAL LABS: Reviewed. WBC elevated down from 14.9-13.7. Creatinine elevated from 1.56-1.66.. Platelets elevated and down from 647-627. CYTOLOGY: WBC 258 cells consistent with peritoneal fluid without abscess. CULTURES: Peritoneal fluid pending. ASSESSMENT: 1. 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 History of gastric bypass 3. Peritoneal adhesions 4. Chronic abdominal pain with malignant ascites 5. 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 Ileus 7. Thrombocytosis 8. Leukocytosis 9. Renal insufficiency 10. Carcinomatosis PLAN: 1. At bedside, extensive discussion with the patient, daughter and lower bar, oncology nurse practitioner Natalie Tao done including goals of care. At this time, patient cannot tolerate the prep and she declines bowel preps. 2. Alternatives for evaluation for GI malignancy was addressed including DNA stool test as patient cannot tolerate colonoscope or preps. 3. Pain management in coordination with oncology. Patient has been started on fentanyl patches as patient is on cyclical morphine, Dilaudid, acetaminophen as needed. 4. Chronic nausea, patient was started on scopolamine patch including scheduled Reglan. Additional recommendations from oncology includes Ativan. 5. Patient being transferred from surgical floor to oncology floor. 6. Patient reports recurrent dysphagia and offered upper endoscopy with esophageal dilation. Patient agreed to proceed. 7. Overall, patient presents with complexity of medical care which will require gynecology oncology for ovarian carcinoma. Patient is unable to be safely discharged due to protein malnutrition, leukocytosis, generalized weakness, chronic abdominal pain. Recommend transfer [facility] for complex medical needs and gynecology. 8. With persistent leukocytosis, infectious disease being consulted. Patient is on Zosyn. 9. Additional medicine consultation for medical management being sought. 10. Initiation for higher level of care for transfer to [facility] being initiated due to medical necessity. CRITICAL CARE: Coordination of care, discussion with consultants, arrangement of services over 90 minutes performed. Objective - Vital Signs Vital signs: Vital Signs Temp 97.9 F 02/09/22 08:00 Pulse 91 02/09/22 08:00 Resp 18 02/09/22 11:00 BP 134/88 02/09/22 08:00 Pulse Ox 95 02/09/22 08:00 FiO2 8 01/27/22 19:44 Intake & Output 02/08/22 02/09/2202/09/22 18:59 06:59 18:59 Intake Total 500 Output Total 315 Balance 185 Intake: Intake, IV Titration 500 Amount Piperacillin-Tazobactam 3 100 .375 gm In Sodium Chloride 0.9% 100 ml @ 25 mls/hr IVPB Q8HR [facility] Rx# :[id number] Sodium Chloride 0.9% 1, 400 000 ml @ 50 mls/hr IV . Q20H [facility] Rx#:[id number] Output: Drainage 15 Right Abdomen 15 Urine 100 Emesis 200 Other: Voiding Method Toilet # Voids 5 3 - Labs CBC & Chem 7: 02/09/22 04:20 02/09/22 04:20 Labs: Abnormal Lab Results - Last 24 Hours (Table) 02/09/22 02/09/22 Range/Units 04:20 04:20 WBC 13.7 H (3.8-10.6) k/uL RBC 3.78 L (3.80-5.40) m/uL Hgb 9.4 L (11.4-16.0) gm/dL Hct 32.5 L (34.0-46.0) % MCHC 29.0 L (31.0-37.0) g/dL RDW 17.9 H (11.5-15.5) % Plt Count 627 H (150-450) k/uL Neutrophils # 11.7 H (1.3-7.7) k/uL Lymphocytes # 0.6 L (1.0-4.8) k/uL BUN 34 H (7-17) mg/dL Creatinine 1.66 H (0.52-1.04) mg/dL Glucose 101 H (74-99) mg/dL Calcium 8.0 L (8.4-10.2) mg/dL Microbiology - Last 24 Hours (Table) 02/08/22 12:05 Gram Stain - Preliminary Aspirate Body Fluid Culture - Preliminary 02/08/22 12:05 Fungal Culture - Preliminary Aspirate 02/08/22 12:05 Anaerobic Culture - Preliminary Aspirate
[2022-02-09] MEDS ORDERED: FUROSEMIDE 20 MG TAB PO ONE (20:00)
[2022-02-09] MEDS: ALBUTEROL NEBULIZED 2.5 MG/3 ML INHALATION PRN (20:10)
--- NOTE | 2022-02-09 20:39 | XR ---
EXAMINATION TYPE: XR abdomen 2V DATE OF EXAM: 02/09/2022 8:15 PM INDICATION: Patient age:Female; 76 years old; Reason for study: Abdomen Pain; COMPARISON: CT chest abdomen pelvis 02/07/2022. TECHNIQUE: One radiographic view of the abdomen was obtained. FINDINGS: Multiple surgical clips are present in the mid abdomen. Ascites is redemonstrated. There is percutaneous pigtail catheter seen in the right abdomen. The filter is present. Stacking layers of g as-filled bowel are seen throughout the abdomen grossly similar to prior CT. Osseous structures demon strate multilevel disc degeneration changes and degeneration of the hips. IMPRESSION: Surgical changes to the abdomen with nonspecific stacking of small bowel which could represent ileus changes versus obstruction given findings on 02/07/2021. Clinical correlation advised.
[2022-02-10] MEDS: HYDROmorphone 1 MG/ML 1 ML SYRINGE IVP PRN ×8 (00:04→21:14)
[2022-02-10] MEDS: METOCLOPRAMIDE 5 MG/ML 2 ML VIAL IVP SCH ×5 (00:06→23:42)
[2022-02-10] MEDS: ONDANSETRON 4 MG/2 ML VIAL IVP SCH ×5 (00:07→23:42)
[2022-02-10] MEDS: ACETAMINOPHEN TAB 500 MG TAB PO SCH ×4 (00:07→17:56)
[2022-02-10] MEDS ORDERED: HYDROmorphone 1 MG/ML 1 ML SYRINGE IM PRN (01:30)
[2022-02-10] MEDS: LACTATED RINGERS 1,000 ML IV SCH (01:47)
[2022-02-10] MEDS: PIPERACILLIN-TAZOBACTAM 3.375 GM in SODIUM CHLORIDE 0.9% 100 ML IVPB SCH ×3 (03:32→19:04)
[2022-02-10] MEDS: LEVOTHYROXINE 75 MCG TAB PO SCH (04:15)
[2022-02-10 07:07] LABS: Anisocytosis Slight; Basophils # (A) 0.2 k/uL (0-0.2); Basophils % (A) 1 %; Eosinophils # (A) 0.2 k/uL (0-0.7); Eosinophils % (A) 1 %; HCT 32.5 % (34.0-46.0); HGB 9.2 gm/dL (11.4-16.0); Hypochromasia Marked; Lymphocytes # (A) 0.5 k/uL (1.0-4.8); Lymphocytes % (A) 4 %; MCH 24.6 pg (25.0-35.0); MCHC 28.2 g/dL (31.0-37.0); MCV 87.1 fL (80.0-100.0); Mean Platelet Volume 7.8; Monocytes # (A) 0.7 k/uL (0-1.0); Monocytes % (A) 6 %; Neutrophils % (A) 87 %; Platelet Count 538 k/uL (150-450); RBC 3.73 m/uL (3.80-5.40); RDW 17.9 % (11.5-15.5); WBC 12.7 k/uL (3.8-10.6)
[2022-02-10 07:11] LABS: ALT 8 U/L (4-34); AST 29 U/L (14-36); African American GFR (CKD) 36 (>60 ml/min/1.73 sqM); Albumin 2.6 g/dL (3.5-5.0); Albumin/Globulin Ratio 0.8; Alkaline Phosphatase 106 U/L (38-126); Anion Gap 10 mmol/L; Blood Urea Nitrogen 36 mg/dL (7-17); Calcium 7.7 mg/dL (8.4-10.2); Carbon Dioxide 21 mmol/L (22-30); Chloride 108 mmol/L (98-107); Globulin 3.3 g/dL; Glucose 103 mg/dL (74-99); Magnesium 2.6 mg/dL (1.6-2.3); Non-African American GFR(CKD) 31 (>60 ml/min/1.73 sqM); Potassium 4.5 mmol/L (3.5-5.1); Sodium 139 mmol/L (137-145); Total Bilirubin 0.4 mg/dL (0.2-1.3); Total Protein 5.9 g/dL (6.3-8.2)
[2022-02-10] MEDS: ALBUTEROL NEBULIZED 2.5 MG/3 ML INHALATION PRN ×2 (07:27→20:19)
--- NOTE | 2022-02-10 07:55 | P.PN ---
Subjective Progress Note Date: 02/10/22 CHIEF COMPLAINT: Abdominal pain HISTORY OF PRESENT ILLNESS: The patient is a 76-year-old female status post diagnostic laparoscopy with omental biopsy and lysis of adhesions 01/27/2022. Biopsies demonstrated carcinomatosis of metastatic poorly differentiated adenocarcinoma of unknown primary. She had team was following excluding pancreatic biliary source. Attempted colonoscopy on several occasions performed however patient unable to tolerate bowel prep or enemas. Additionally, intraoperative findings of moderate disease within the pelvis were reviewed and suspicious for ovarian carcinoma. Discussion was performed with myself, patient, [id number], oncology team for care plan yesterday evening. Due to progressive disease, complex medical issues and need for further care, transferred to [facility] was described for further malignancy workup and management of ovarian carcinoma. Patient was transferred to the oncology for yesterday. Overnight, she had a run of V. tach. Patient reports having bowel movement. Abdominal pain stable. ROS: No fevers or chills. No new chest pain. No productive sputum. PHYSICAL EXAM: VITAL SIGNS: Reviewed CONSTITUTIONAL: Well developed and in no acute distress. EYES: Conjuctivae without sclera icterus. Extraocular movements grossly intact. HEAD, EARS, NOSE, THROAT: Head is atraumatic, normocephalic. Hears conversational speech. No nasal drainage. RESPIRATORY: Non-labored respirations and equal bilateral excursions. CARDIOVASCULAR: 2+ radial pulses. ABDOMEN: Obese, protuberant. Decreased seroma right upper quadrant with drain serosanguineous. MUSCULOSKELETAL: No clubbing. No cyanosis. SKIN: Good skin turgor. Well perfused. NEUROLOGIC: Cranial nerves II through XII grossly intact. No focal or lateralizing signs. PSYCH: Alert and oriented to person, place and time. CLINICAL LABS: Reviewed. WBC elevated over 16,000 now down to 12,900. Creatinine elevated at 1.66 down to 1.6 after given Lasix STUDIES: Abdominal x-ray independently reviewed demonstrating no free air. This is my independent interpretation. REPORT: Abdominal x-ray report ileus. ASSESSMENT: 1. 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 History of gastric bypass 3. Peritoneal adhesions 4. Chronic abdominal pain with malignant ascites 5. 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 Ileus 7. Thrombocytosis 8. Leukocytosis 9. 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 Moderate protein malnutrition requiring TPN PLAN: 1. She has minimal output from her drain and may be removed with interventional radiology. 2. Proceed with double lumen PICC line for TPN and antibiotics 3. Infectious disease consulted for antibiotic management due to persistent leukocytosis. Cultures pending of ascitic fluid. 4. Cardiology consultation transient ventricular tachycardia 5. Upper endoscopy today for dysphagia. Colonoscopy canceled due to patient's intolerance of upper or lower problems. 6. Transfer to [facility] for her complex medical care described pending case management team. Objective - Vital Signs Vital signs: Vital Signs Temp 98.2 F 02/10/22 04:54 Pulse 84 02/10/22 07:38 Resp 18 02/10/22 04:54 BP 117/72 02/10/22 04:54 Pulse Ox 93 L 02/10/22 04:54 FiO2 21 02/09/22 20:12 Intake & Output 02/09/22 02/10/22 02/10/22 18:59 06:59 18:59 Intake Total 1940 Output Total 1000 Balance 940 Intake: Intake, IV Titration 1200 Amount Piperacillin-Tazobactam 3 100 .375 gm In Sodium Chloride 0.9% 100 ml @ 25 mls/hr IVPB Q8H [facility] Rx#: [id number] Sodium Chloride 0.9% 1, 1100 000 ml @ 50 mls/hr IV . Q20H [facility] Rx#:[id number] Oral 740 Output: Urine 1000 Other: Voiding Method Toilet Toilet # Voids 2 # Bowel Movements 1 - Labs CBC & Chem 7: 02/10/22 06:44 02/10/22 06:44 Labs: Abnormal Lab Results - Last 24 Hours (Table) 02/10/22 02/10/22 Range/Units 06:44 06:44 WBC 12.7 H (3.8-10.6) k/uL RBC 3.73 L (3.80-5.40) m/uL Hgb 9.2 L (11.4-16.0) gm/dL Hct 32.5 L (34.0-46.0) % MCH 24.6 L (25.0-35.0) pg MCHC 28.2 L (31.0-37.0) g/dL RDW 17.9 H (11.5-15.5) % Plt Count 538 H (150-450) k/uL Neutrophils # 11.0 H (1.3-7.7) k/uL Lymphocytes # 0.5 L (1.0-4.8) k/uL Chloride 108 H (98-107) mmol/L Carbon Dioxide 21 L (22-30) mmol/L BUN 36 H (7-17) mg/dL Creatinine 1.61 H (0.52-1.04) mg/dL Glucose 103 H (74-99) mg/dL Calcium 7.7 L (8.4-10.2) mg/dL Magnesium 2.6 H (1.6-2.3) mg/dL Total Protein 5.9 L (6.3-8.2) g/dL Albumin 2.6 L (3.5-5.0) g/dL Microbiology - Last 24 Hours (Table) 02/08/22 12:05 Gram Stain - Preliminary Aspirate Body Fluid Culture - Preliminary
[2022-02-10] MEDS: PANTOPRAZOLE 40 MG TABLET PO SCH (08:11)
[2022-02-10] MEDS: HEPARIN SODIUM,PORCINE/PF 5,000 UNIT/0.5 ML SYRINGE SQ SCH ×2 (08:11→19:05)
[2022-02-10] MEDS: SENNOSIDES-DOCUSATE SODIUM 1 EACH TAB PO SCH ×2 (08:11→19:05)
[2022-02-10] MEDS: LORazepam 2 MG/ML INJ IV PRN ×2 (10:13→15:39)
[2022-02-10] MEDS: MIDODRINE 5 MG TAB PO SCH ×2 (10:14→17:57)
--- NOTE | 2022-02-10 10:22 | P.PN ---
Progress Note - Text Progress Note Date: 02/10/22 Transfer coordinated with case managementMatthew. Brandin Fam [phone] notified. Spoke to gynecology oncologist Dr. Gilliam regarding patient's care. Patient accepted for transfer.
--- NOTE | 2022-02-10 10:30 | P.DS ---
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 Do you want consulting provider notified?: Yes, Notify in am 02/03/22 10:22 Consult Physician Routine Consulting Provider: Danyelle Doll Consult Reason/Comments: Acute renal insufficiency Do you want consulting provider notified?: Yes 02/09/22 18:45 Consult Physician Routine Consulting Provider: Chun Mina Consult Reason/Comments: Antibiotic management Do you want consulting provider notified?: Yes, Notify in am 02/10/22 00:28 Consult Physician Routine Consulting Provider: Brice Elam Consult Reason/Comments: Vtach Do you want consulting provider notified?: Yes, Notify in am 02/10/22 01:30 Consult Physician Routine Consulting Provider: Barb Strauss Consult Reason/Comments: Medical management Do you want consulting provider notified?: Yes Primary care physician: Lukas Graves Hospital Course: POSTOPERATIVE DIAGNOSES: 1. Left lower quadrant abdominal pain 2. History of multiple abdominal surgeries 3. History of gastric bypass for morbid obesity 4. Morbid obesity due to excess calories, BMI 35.0 5. Hypothyroidism 6. Hypertensive heart disease 7. Asthma 8. History of IVC filter 9. Chronic anemia 10. Abdominal ascites 11. Abdominal adhesions left lower quadrant 12. Carcinomatosis of the abdomen, poorly differentiated adenocarcinoma HISTORY OF PRESENT ILLNESS: The patient is a 76-year-old female who initially was admitted to the hospital with abdominal pain ongoing for over 2-3 weeks. She reports decreased appetite. She has history of gastric bypass. Due to a prior history of bowel obstruction, surgical intervention was described. She underwent diagnostic laparoscopy. She is status post diagnostic laparoscopy with omental biopsy and lysis of adhesions 01/27/2022. Intraoperative findings were suspicious for carcinoma involving the omentum with malignant ascites. Pathology consistent with poorly differentiated adenocarcinoma with car cinomatosis of unknown primary. Multiple consultants were involved including hospitalist, oncology, nephrology, gastroenterology. Metastatic workup was performed including MRCP, CT of chest abdomen and pelvis. Due to elevated renal function, nephrology was following. Gastroenterology was following to exclude GI malignancy of the biliopancreatic etiology. Additional consultants was including infectious disease and cardiology were obtained. A drain of the right upper abdomen was performed for seroma of the abdominal wall. During hospitalization, patient had continued generalized abdominal pain acute on chronic with a pre-existing history of fibromyalgia. Due to ovarian carcinoma, gynecology not available at this hospital. High level of care was discussed and agreed upon with gynecology team including patient and her family. ROS: No fevers or chills. No new chest pain. No productive sputum. PHYSICAL EXAM: VITAL SIGNS: Reviewed CONSTITUTIONAL: Well developed and in no acute distress. EYES: Conjuctivae without sclera icterus. Extraocular movements grossly intact. HEAD, EARS, NOSE, THROAT: Head is atraumatic, normocephalic. Hears conversational speech. No nasal drainage. RESPIRATORY: Non-labored respirations and equal bilateral excursions. CARDIOVASCULAR: 2+ radial pulses. ABDOMEN: Obese, protuberant. Drainage catheter at right upper quadrant at bedside with serosanguineous drainage 5 mL in 10-12 hours. MUSCULOSKELETAL: No clubbing. No cyanosis. SKIN: Good skin turgor. Well perfused. NEUROLOGIC: Cranial nerves II through XII grossly intact. No focal or lateralizing signs. PSYCH: Alert and oriented to person, place and time. CLINICAL LABS: Reviewed. WBC, creatinine, platelets trending downward. CYTOLOGY: WBC 258 cells consistent with peritoneal fluid without abscess. CULTURES: Peritoneal fluid pending. PLAN: 1. Overall, patient presents with complexity of medical care which will require gynecology oncology for ovarian carcinoma. Patient is unable to be safely discharged due to protein malnutrition, leukocytosis, generalized weakness, chronic abdominal pain. Recommend transfer to [facility] for complex medical needs and gynecology. 2. With persistent leukocytosis, infectious disease being consulted. Patient is on Zosyn. 3. Additional medicine consultation for medical management being sought. 4. Initiation for higher level of care for transfer to [facility] being initiated due to medical necessity. Contact with [facility] performed 02/10/2022 at 1020 Procedures: OPERATION: 1. Robotic-assisted da Deangelo Xi laparoscopic with lysis of adhesions 2. Omental excisional biopsy for pseudomyxoma peritonei 3. Aaspiration of peritoneal fluid/ascites for cell cytology ESTIMATED BLOOD LOSS: 5 mL. SPECIMENS REMOVED: (Excisional biopsy of the omentum, ascites for cell cytology) COMPLICATIONS: None. Condition: stable Disposition: floor Operative Findings: 1. Abdominal ascites over 1000 mL removed 2. Carcinomatosis involving the greater omentum to the abdominal wall adherent with focal adhesion of small bowel to left lower quadrant and location of patient's pain 3. No gross metastatic lesions of the liver 4. Excision of adhesion of the left lower quadrant abdominal wall releasing small bowel performed Patient Condition at Discharge: Stable Plan - Discharge Summary New Discharge Prescriptions: New Simethicone [Gas-X] 125 mg PO AC-TID PRN #20 capsule PRN Reason: Pain Acetaminophen Tab [Tylenol Tab] 1,000 mg PO Q6HR PRN #30 tablet PRN Reason: Pain Continue Levothyroxine Sodium [Synthroid] 150 mcg PO DAILY Cyanocobalamin [Vitamin B-12 Injection] 1,000 mcg SQ QMONTHLY Meclizine HCl 25 mg PO BID PRN PRN Reason: NAUSEA/DIZZINESS Ergocalciferol (Vitamin D2) [Drisdol (50,000 Iu)] 1,250 mcg PO MO Albuterol Sulfate [Ventolin HFA] 2 puff INHALATION RT-Q6H PRN PRN Reason: Shortness Of Breath Pantoprazole [Protonix] 40 mg PO DAILY hydroCHLOROthiazide [Hydrodiuril] 12.5 mg PO DAILY cloNIDine HCL [Catapres] 0.1 mg PO BID Naltrexone HCl [Revia] 50 mg PO DAILY Folic Acid 1 mg PO DAILY Acetaminophen Tab [Tylenol] 650 mg PO Q6HR PRN tab PRN Reason: Mild Pain Or Fever > 100.5 Discharge Medication List Albuterol Sulfate [Ventolin HFA] 2 puff INHALATION RT-Q6H PRN 01/21/22 [History] Cyanocobalamin [Vitamin B-12 Injection] 1,000 mcg SQ QMONTHLY 01/21/22 [History] Ergocalciferol (Vitamin D2) [Drisdol (50,000 Iu)] 1,250 mcg PO MO 01/21/22 [History] Folic Acid 1 mg PO DAILY 01/21/22 [History] Levothyroxine Sodium [Synthroid] 150 mcg PO DAILY 01/21/22 [History] Meclizine HCl 25 mg PO BID PRN 01/21/22 [History] Naltrexone HCl [Revia] 50 mg PO DAILY 01/21/22 [History] Pantoprazole [Protonix] 40 mg PO DAILY 01/21/22 [History] cloNIDine HCL [Catapres] 0.1 mg PO BID 01/21/22 [History] hydroCHLOROthiazide [Hydrodiuril] 12.5 mg PO DAILY 01/21/22 [History] Acetaminophen Tab [Tylenol] 650 mg PO Q6HR PRN tab 01/24/22 [Rx] Acetaminophen Tab [Tylenol Tab] 1,000 mg PO Q6HR PRN #30 tablet 01/28/22 [Rx] Simethicone [Gas-X] 125 mg PO AC-TID PRN #20 capsule 01/28/22 [Rx] [facility]Ref[facility]-2 Days Lukas Graves MD [Primary Care Provider] - 1-2 days Minal Dumont MD [STAFF PHYSICIAN] - 02/15/22 [facility] [NON-STAFF] - As Needed (Contact for enrollment questions for adult day program.) Patient Instructions/Handouts: Abdominal Binder (DC), Lysis of Abdominal Adhesions (DC) Activity/Diet/Wound Care/Special Instructions: Using antibacterial soap. No lifting over 4 pounds 4 weeks, February 26December shower. No bathtub soaks for 2 weeks, February 10 Wear abdominal binder daily for comfort except for showering. Use ice along incisions for today to prevent swelling. Take tylenol simethicone scheduled for 3 days for best pain relief Discharge/Stand Alone Forms: Who Do I Call?, Help In The Home Discharge Disposition: DISCH/TRANS TO A [facility]
[2022-02-10] MEDS: SODIUM CHLORIDE 0.9% 1,000 ML IV SCH (11:08)
--- NOTE | 2022-02-10 11:10 | P.PN ---
Progress Note - Text Progress Note Date: 02/10/22 Dr. Dumont spoke with the [facility] excepting transferring physician who is requesting the pathology slides. Pathology slides will be sent to [facility] with the patient per [facility] physician request.
--- NOTE | 2022-02-10 11:26 | P.PN ---
Subjective Progress Note Date: 02/09/22 Principal diagnosis: Adenocarconoma Long discussion >35 minutes patient, Joel, and Daughter in law. Patient and DIL unhappy with mom still having a lot of pain and nausea.Unable to tolerate prep for colonoscopy and wish to proceed with transfer to [facility]. Objective - Vital Signs Vital signs: Vital Signs Temp 97.9 F 02/09/22 08:00 Pulse 91 02/09/22 08:00 Resp 18 02/09/22 11:00 BP 134/88 02/09/22 08:00 Pulse Ox 95 02/09/22 08:00 FiO2 8 01/27/22 19:44 Intake & Output 02/08/22 02/09/22 02/09/22 18:59 06:59 18:59 Intake Total 500 Output Total 315 Balance 185 Intake: Intake, IV Titration 500 Amount Piperacillin-Tazobactam 3 100 .375 gm In Sodium Chloride 0.9% 100 ml @ 25 mls/hr IVPB Q8HR [facility] Rx# :[id number] Sodium Chloride 0.9% 1, 400 000 ml @ 50 mls/hr IV . Q20H [facility] Rx#:[id number] Output: Drainage 15 Right Abdomen 15 Urine 100 Emesis 200 Other: Voiding Method Toilet # Voids 5 3 - Exam - Constitutional General appearance: Present: cooperative, no acute distress, obese - EENT Eyes: Present: anicteric sclerae, EOMI ENT: Present: hearing grossly normal - Respiratory Details: resp even and unlabored - Gastrointestinal General gastrointestinal: Present: decreased bowel sounds (distant), soft, tenderness palpable RUQ - Neurologic Neurologic: Present: CNII-XII intact - Musculoskeletal Musculoskeletal: Present: generalized weakness - Psychiatric Psychiatric: Present: A&O x's 3, appropriate affect, intact judgment & insight - Labs CBC & Chem 7: 02/10/22 06:44 02/10/22 06:44 Labs: Abnormal Lab Results - Last 24 Hours (Table) 02/08/22 02/08/22 02/09/22 Range/Units 14:10 14:10 04:20 WBC 14.9 H 13.7 H (3.8-10.6) k/uL RBC 3.78 L (3.80-5.40) m/uL Hgb 10.3 L 9.4 L (11.4-16.0) gm/dL Hct 32.5 L (34.0-46.0) % MCH 24.9 L (25.0-35.0) pg MCHC 28.8 L 29.0 L (31.0-37.0) g/dL RDW 17.7 H 17.9 H (11.5-15.5) % Plt Count 638 H 627 H (150-450) k/uL Neutrophils # 13.1 H 11.7 H (1.3-7.7) k/uL Lymphocytes # 0.5 L 0.6 L (1.0-4.8) k/uL BUN 32 H (7-17) mg/dL Creatinine 1.56 H (0.52-1.04) mg/dL Glucose 107 H (74-99) mg/dL Calcium 8.0 L (8.4-10.2) mg/dL 02/09/22 Range/Units 04:20 WBC (3.8-10.6) k/uL RBC (3.80-5.40) m/uL Hgb (11.4-16.0) gm/dL Hct (34.0-46.0) % MCH (25.0-35.0) pg MCHC (31.0-37.0) g/dL RDW (11.5-15.5) % Plt Count (150-450) k/uL Neutrophils # (1.3-7.7) k/uL Lymphocytes # (1.0-4.8) k/uL BUN 34 H (7-17) mg/dL Creatinine 1.66 H (0.52-1.04) mg/dL Glucose 101 H (74-99) mg/dL Calcium 8.0 L (8.4-10.2) mg/dL Microbiology - Last 24 Hours (Table) 02/08/22 12:05 Gram Stain - Preliminary Aspirate Body Fluid Culture - Preliminary 02/08/22 12:05 Fungal Culture - Preliminary Aspirate 02/08/22 12:05 Anaerobic Culture - Preliminary Aspirate Assessment and Plan (1) Partial small bowel obstruction Current Visit: Yes Status: Acute Code(s): K56.600 - PARTIAL INTESTINAL OBSTRUCTION, UNSPECIFIED TO CAUSE SNOMED Code(s): 395076743 (2) Adenocarcinoma carcinomatosis Narrative/Plan: - Unknown primary origina New diagnosis of poorly differentiated adenocarcinoma, Differentials include Ovarian/Uterine, upper GI, pancreaticobiliary versus mullerian primary. Ascitic fluid + for same. Plan transfer for [facility] Evaluation to [facility] Recommendation is to proceed with endoscopy-looking for a GI primary. Pt recently has EGD. Colonoscopy aborted because of fecal impaction, treatment of the same and future plan for procedure pending. MRCP ordered- evaluate the liver/pancreas/biliary tree. Tumor markers [id number] If no other source is identified after endoscopy and imaging, felt most likely origin is mullerian and patient will be referred to [facility]. Parenteral iron Given for compoenent of Iron deficiency anemia Dr. Frank: Levon completed the full history and physical and developed the above impression and plan. Agree with above dictation, dictated as a ascribe Current Visit: Yes Status: Acute Code(s): C80.0 - DISSEMINATED MALIGNANT NEOPLASM, UNSPECIFIED SNOMED Code(s): 148683596 Plan: Assessment and Plan (1) Adenocarcinoma carcinomatosis Narrative/Plan: at this time the patient has carcinomatosis from adenocarcinoma of unknown primary. - She is in a quite a bit of pain and have added a low dose fentanyl patch for her with cowel regimen Differential diagnoses for primary site include following, and tentatively, as well as ovarian - Patient's recent EGD has been negative. Her MRI results were discussed in detail with her yesterday by Dr. Mccoy. They show a possible abnormality in the common bile duct, either artifact, versus possible stricture. The patient does have a prior history of urinary obstruction requiring surgery. Therefore possible to findings, versus artifact, versus malignant stricture are still in the differential - . This was discussed in detail with the patient. gastroenterology was consulted to evaluate the MRI. They feel ERCP or EUS is not necessary at this time as this is likely scar tissue from prior procedure, in speaking with GI [facility] today. - colonoscopy is still pending adequately prep Current Visit: Yes Status: Acute Code(s): C80.0 - DISSEMINATED MALIGNANT NEOPLASM, UNSPECIFIED SNOMED Code(s): 112403629 Will transfer to [facility] oncology Increase fentanyl 50mcg Add ativan PRN Nausea Picc line per Surgery for TPN PT/OT
--- NOTE | 2022-02-10 11:29 | P.PN ---
Subjective Progress Note Date: 02/10/22 Principal diagnosis: Adenocarconoma Feeling better today on [address]. She is still nauseated, ativan given while at bedside and has helped. Patient headed to have Picc line placement Objective - Vital Signs Vital signs: Vital Signs Temp 98.2 F 02/10/22 04:54 Pulse 84 02/10/22 07:38 Resp 18 02/10/22 04:54 BP 117/72 02/10/22 04:54 Pulse Ox 93 L 02/10/22 04:54 FiO2 21 02/09/22 20:12 Intake & Output 02/09/22 02/10/22 02/10/22 18:59 06:59 18:59 Intake Total 1940 Output Total 1000 Balance 940 Intake: Intake, IV Titration 1200 Amount Piperacillin-Tazobactam 3 100 .375 gm In Sodium Chloride 0.9% 100 ml @ 25 mls/hr IVPB Q8H [facility] Rx#: [id number] Sodium Chloride 0.9% 1, 1100 000 ml @ 50 mls/hr IV . Q20H [facility] Rx#:[id number] Oral 740 Output: Urine 1000 Other: Voiding Method Toilet Toilet # Voids 2 # Bowel Movements 1 - Exam - Constitutional General appearance: Present: cooperative, no acute distress, obese - EENT Eyes: Present: anicteric sclerae, EOMI ENT: Present: hearing grossly normal - Respiratory Details: resp even and unlabored - Gastrointestinal General gastrointestinal: Present: decreased bowel sounds (distant), soft, te nderness palpable RUQ - Neurologic Neurologic: Present: CNII-XII intact - Musculoskeletal Musculoskeletal: Present: generalized weakness - Psychiatric Psychiatric: Present: A&O x's 3, appropriate affect, intact judgment & insight - Labs CBC & Chem 7: 02/10/22 06:44 02/10/22 06:44 Labs: Abnormal Lab Results - Last 24 Hours (Table) 02/10/22 02/10/22 Range/Units 06:44 06:44 WBC 12.7 H (3.8-10.6) k/uL RBC 3.73 L (3.80-5.40) m/uL Hgb 9.2 L (11.4-16.0) gm/dL Hct 32.5 L (34.0-46.0) % MCH 24.6 L (25.0-35.0) pg MCHC 28.2 L (31.0-37.0) g/dL RDW 17.9 H (11.5-15.5) % Plt Count 538 H (150-450) k/uL Neutrophils # 11.0 H (1.3-7.7) k/uL Lymphocytes # 0.5 L (1.0-4.8) k/uL Chloride 108 H (98-107) mmol/L Carbon Dioxide 21 L (22-30) mmol/L BUN 36 H (7-17) mg/dL Creatinine 1.61 H (0.52-1.04) mg/dL Glucose 103 H (74-99) mg/dL Calcium 7.7 L (8.4-10.2) mg/dL Magnesium 2.6 H (1.6-2.3) mg/dL Total Protein 5.9 L (6.3-8.2) g/dL Albumin 2.6 L (3.5-5.0) g/dL Microbiology - Last 24 Hours (Table) 02/08/22 12:05 Gram Stain - Preliminary Aspirate Body Fluid Culture - Preliminary Assessment and Plan (1) Partial small bowel obstruction Current Visit: Yes Status: Acute Code(s): K56.600 - PARTIAL INTESTINAL OBSTRUCTION, UNSPECIFIED TO CAUSE SNOMED Code(s): 315622925 (2) Adenocarcinoma carcinomatosis Narrative/Plan: - Unknown primary origina New diagnosis of poorly differentiated adenocarcinoma, Differentials include Ovarian/Uterine, upper GI, pancreaticobiliary versus mullerian primary. Ascitic fluid + for same. Unable to tolerate Prep due to persistent nausea and pain Changes to pain and nausea medications have im[roved her comfort Awaiting transfer Dr. Mccoy has explained in detail picture and need of further diagnostics EGD planned by General surgery Picc line TPN COntinue Ativan, Fentanyl and dilaudid Attest: Levon completed the full history and physical and developed the above impression and plan. Agree with above dictation, dictated as a ascribe Current Visit: Yes Status: Acute Code(s): C80.0 - DISSEMINATED MALIGNANT NEOPLASM, UNSPECIFIED SNOMED Code(s): 093459487
[2022-02-10] MEDS ORDERED: PROPOFOL 10 MG/ML 20 ML VIAL IV ONE (13:30)
[2022-02-10] MEDS ORDERED: LIDOCAINE 2% INJ 20 MG/ML (2 ML VIAL) ONE (13:30)
--- NOTE | 2022-02-10 13:59 | P.PCN ---
Date of Procedure: 02/10/22 Description of Procedure: PREOPERATIVE DIAGNOSIS: Dysphagia Upper esophageal stricture History of gastric bypass POSTOPERATIVE DIAGNOSIS: Dysphagia Upper esophageal stricture History of gastric bypass OPERATION: Esophagogastroduodenoscopy with rigid dilator over the guidewire 51 Fr. SURGEON: Minal Dumont MD ANESTHESIA: MAC. INDICATIONS: The patient is a 76-year-old male who presents with dysphagia of the upper esophagus. Benefits and risks of the procedure were described. Informed consent was obtained. DESCRIPTION: The patient was brought into the endoscopy suite and laid in the left lateral decubitus position. After a timeout was confirmed, the procedure was initiated. An Olympus gastroscope was passed into the gastric pouch. Fluid was suctioned from the gastric pouch. The anastomosis was patent. Next using an Cypriot rigid dilator, a guidewire was placed through the pediat meri gastroscope. Next the scope was withdrawn. A -Luxembourgish rigid Cypriot dilator was passed carefully along the posterior oropharynx to 50 cm and left in place for 2-3 minutes stretch. The dilator was withdrawn including the guidewire. The scope was reentered along the posterior oropharynx with no findings of full-thickness tear of the upper esophageal sphincter. Next, inflammation of the antrum was identified with cold forceps biopsies obtained. No full-thickness injury was encountered. The GI tract was desufflated. The patient tolerated the procedure well. FINDINGS: Squamocolumnar junction unremarkable at 40 cm cm. Upper esophageal stricture without ulceration Cypriot rigid dilator 51-Luxembourgish completed for upper esophageal stricture No gastric jejunal ulceration. RECOMMENDATIONS: Upper endoscopy as needed
--- NOTE | 2022-02-10 14:02 | P.PN ---
Progress Note - Text Progress Note Date: 02/10/22 Patient had PICC line placement. Upper endoscopy completed. Cardiology consultation obtained confirming no evidence of V. tach. At this time, patient is pending transfer to [facility] for gynecology oncology including additional malignancy workup and complex medical care.
[2022-02-10] MEDS ORDERED: SODIUM CHLORIDE 0.9% 1,000 ML IV ONE (14:10)
[2022-02-10] MEDS ORDERED: ALBUTEROL NEBULIZED 2.5 MG/3 ML INHALATION ONE (14:15)
--- NOTE | 2022-02-10 15:30 | PN ---
PROGRESS NOTE I was asked to see the patient mainly because of a question on her rhythm strips. I reviewed the rhythm strips, but patient was not in the room. The rhythm strips suggest artifact. There is no evidence of any ventricular tachycardia. Her electrolytes are normal. Patient can be transferred to [facility] without any issue. I will see her if she is available in the room. This was explained to the nurse and we left a message for Dr. Dumont. MMMACYL / AMANDAN: [id number] /
[2022-02-10] MEDS ORDERED: MVI, ADULT NO.4 WITH VIT K 10 ML, TRACE (CONC-1ML/DOSE) 1 ML, SODIUM ACETATE 30 MEQ, PO... IV SCH ×6 (17:00)
--- NOTE | 2022-02-10 22:52 | P.CONS ---
History of Present Illness - Reason for Consult Consult date: 02/10/22 Medical management - Chief Complaint Metastatic cancer - History of Present Illness Patient is a 76-year-old female with a known history of hypertension, hypothyroidism, history of IVC filter and prior gastric bypass surgery who was admitted to the hospital on 01/26/2022 with complaints of left lower quadrant abdominal pain. Found to have bowel obstruction and was admitted to the hospital.. 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 Patient went into acute kidney injury with creatinine went up to 1.6. Pathology report showed poorly differentiated adenocarcinoma with the primary being upper GI, pancreatobiliary versus mullerian primary. Patient underwent work-up including EGD, MRCP and tumor markers were done. Patient had MRI of the liver which showed abdominal ascites without change. There are pleural effusions which are new compared to recent CT scan. Incomplete visualization of the mid common bile duct of uncertain significance. Stricture is possible. There is mild ectasia of the intrahepatic bile ducts. Cologuard was attempted on 02/03/2022 but could not be done due to fecal impaction and poor preparation. Patient has been having vomiting. MRI of the liver findings are likely due to scar tissue from previous ERCP and CBD stone Obstruction and surgical extraction. LFTs were normal and ERCP was not recommended by gastroenterology. Patient had ultrasound-guided seroma drainage on 02/08/2022. Patient is unable to tolerate oral diet. PICC line was placed and started on TPN. Also on antibiotics due to persistent leukocytosis. Due to metastatic cancer and possible hepatobiliary versus mullerian origin of the primary malignancy, patient will need to be evaluated by [facility] oncology and is pending transfer at this time. , Patient underwent EGD again on 02/10/2022 due to dysphagia and stricture status post dilation. Laboratory today showed WBC 12.7 hemoglobin 9.8 and platelets 538 sodium 139 potassium 4.5 chloride 108 bicarb 21 BUN 36 and creatinine 1.6 calcium 7.7 phosphorus 4.9 and magnesium 2.6 and albumin 2.6 Review of Systems Constitutional: Patient denies any fever or chills . No generalized weakness or weight loss. Abdomen: Patient does have nausea. No abscess or vomiting. Abdominal distention/pain and no diarrhea.. Cardiovascular: Patient denies any chest pain or short of breath no palpitations. Respiratory: patient denied any cough is from production. No shortness of breath Neurologic: Patient denied any numbness or tingling headache. Musculoskeletal: Patient denies any complaints of joint swelling or deformity. Skin: Negative Psychiatric: Negative Endocrine: No heat or cold intolerance. No recent weight gain. Genitourinary: No dysuria or hematuria. All other 14 point ROS negative except the above Past Medical History Past Medical History: Hypertension History of Any Multi-Drug Resistant Organisms: None Reported Past Surgical History: Appendectomy, Cholecystectomy, Hernia Repair, Hysterectomy Additional Past Surgical History / Comment(s): gastro bypass Past Anesthesia/Blood Transfusion Reactions: No Reported Reaction Past Psychological History: No Psychological Hx Reported Smoking Status: Never smoker Past Alcohol Use History: Occasional Past Drug Use History: None Reported Medications and Allergies Home Medications Medication Instructions Recorded Confirmed Type RX: Albuterol Sulfate [Ventolin 2 puff INHALATION RT-Q6H PRN 01/21/22 01/26/22 History HFA] RX: Cyanocobalamin [Vitamin B-12 1,000 mcg SQ QMONTHLY 01/21/22 01/26/22 History Injection] RX: Ergocalciferol (Vitamin D2) 1,250 mcg PO MO 01/21/22 01/26/22 History [Drisdol (50,000 Iu)] RX: Folic Acid 1 mg PO DAILY 01/21/22 01/26/22 History RX: Levothyroxine Sodium 150 mcg PO DAILY 01/21/22 01/26/22 History [Synthroid] RX: Meclizine HCl 25 mg PO BID PRN 01/21/22 01/26/22 History RX: Naltrexone HCl [Revia] 50 mg PO DAILY 01/21/22 01/26/22 History RX: Pantoprazole [Protonix] 40 mg PO DAILY 01/21/22 01/26/22 History RX: cloNIDine HCL [Catapres] 0.1 mg PO BID 01/21/22 01/26/22 History RX: hydroCHLOROthiazide 12.5 mg PO DAILY 01/21/22 01/26/22 History [Hydrodiuril] RX: Acetaminophen Tab [Tylenol] 650 mg PO Q6HR PRN tab 01/24/22 01/26/22 Rx Acetaminophen Tab [Tylenol Tab] 1,000 mg PO Q6HR PRN #30 tablet 01/28/22 Rx RX: Simethicone [Gas-X] 125 mg PO AC-TID PRN #20 capsule 01/28/22 Rx RX: Midodrine [ProAmatine] 5 mg PO AC-BID tab 02/10/22 Rx RX: Piperacillin-Tazobactam [Zosyn] 3.375 gm IVPB Q8H each 02/10/22 Rx Allergies Allergy/AdvReac Type Severity Reaction Status Date / Time nickel Allergy Rash/Hives Verified 02/08/22 11:43 ranitidine [From Zantac] Allergy Swelling Verified 02/08/22 11:43 Physical Exam Vitals: Vital Signs Temp Pulse Pulse Resp BP BP Pulse Ox 02/10/22 15:00 96 22 96 02/10/22 14:45 95 20 124/58 99 02/10/22 14:30 118 H 24 157/78 02/10/22 14:23 120 H 24 158/70 97 02/10/22 14:10 129 H 32 H 137/88 98 02/10/22 12:12 98.7 F 87 12 105/67 96 02/10/22 07:38 84 02/10/22 07:27 80 02/10/22 04:54 98.2 F 73 18 117/72 93 L 02/09/22 20:23 84 02/09/22 20:12 83 92 L 02/09/22 20:00 98.3 F 83 16 102/65 92 L FiO2 02/10/22 15:00 02/10/22 14:45 02/10/22 14:30 02/10/22 14:23 02/10/22 14:10 02/10/22 12:12 02/10/22 07:38 02/10/22 07:27 02/10/22 04:54 02/09/22 20:23 02/09/22 20:12 21 02/09/22 20:00 Intake and Output 02/10/22 02/10/22 02/10/22 06:59 14:59 22:59 Intake Total 1540 0 Output Total 600 Balance 940 0 Intake: IV 0 Intake, IV Titration 800 Amount Piperacillin-Tazobactam 3 100 .375 gm In Sodium Chloride 0.9% 100 ml @ 25 mls/hr IVPB Q8H [facility] Rx#: [id number] Sodium Chloride 0.9% 1, 700 000 ml @ 50 mls/hr IV . Q20H [facility] Rx#:[id number] Oral 740 Output: Urine 600 Other: Voiding Method Toilet # Voids 2 Weight 104.326 kg PHYSICAL EXAMINATION: Patient is lying in the bed comfortably, no acute distress, awake alert and oriented.. HEENT: Normocephalic. Neck is supple. Pupils reactive. Nostrils clear. Oral cavity is moist. Neck reveals no JVD, carotid bruits, or thyromegaly. CHEST EXAMINATION: Trachea is central. Symmetrical expansion. Bibasilar diminished sounds. Lung hawkins clear to auscultation and percussion. CARDIAC: Normal S1, S2 with no gallops. No murmurs ABDOMEN: Soft. Abdominal distention with ascites. Surgical incision site healing. Bowel sounds normal. No organomegaly. No abdominal bruits. Extremities: Bilateral lower extremity 2+ edema. No clubbing or cyanosis Neurologically awake, alert, oriented x3 with well-coordinated movements. No focal deficits noted Skin: No rash or skin lesions. Psychiatric: Coperative. Nonsuicidal Musculoskeletal: No joint swelling or deformity. Normal range of motion. Results CBC & Chem 7: 02/11/22 06:09 02/11/22 06:09 Labs: Abnormal Lab Results - Last 24 Hours (Table) 02/10/22 02/10/22 Range/Units 06:44 06:44 WBC 12.7 H (3.8-10.6) k/uL RBC 3.73 L (3.80-5.40) m/uL Hgb 9.2 L (11.4-16.0) gm/dL Hct 32.5 L (34.0-46.0) % MCH 24.6 L (25.0-35.0) pg MCHC 28.2 L (31.0-37.0) g/dL RDW 17.9 H (11.5-15.5) % Plt Count 538 H (150-450) k/uL Neutrophils # 11.0 H (1.3-7.7) k/uL Lymphocytes # 0.5 L (1.0-4.8) k/uL Chloride 108 H (98-107) mmol/L Carbon Dioxide 21 L (22-30) mmol/L BUN 36 H (7-17) mg/dL Creatinine 1.61 H (0.52-1.04) mg/dL Glucose 103 H (74-99) mg/dL Calcium 7.7 L (8.4-10.2) mg/dL Magnesium 2.6 H (1.6-2.3) mg/dL Total Protein 5.9 L (6.3-8.2) g/dL Albumin 2.6 L (3.5-5.0) g/dL Microbiology - Last 24 Hours (Table) 02/08/22 12:05 Gram Stain - Preliminary Aspirate Body Fluid Culture - Preliminary Assessment and Plan Assessment: Adenocarcinoma with carcinomatosis with unknown primary Newly diagnosed with poorly differentiated adenocarcinoma. Differential include ovarian/uterine, upper GI, pancreatobiliary versus mullerian primary. Acetic fluid positive for malignancy cells also. Partial small bowel obstruction on admission status post lysis of additions. Dysphagia status post EGD and esophageal stricture dilation Hypertension Hypothyroidism History of IVC filter placement Prior gastric bypass surgery Appendectomy, cholecystectomy, hernia repair and hysterectomy. DVT prophylaxis on heparin subcu. Plan: Patient will be continued on antibiotics in the form of Zosyn. Continued pain management. Work-up including liver MRI, CT abdomen and pelvis, aspiration of the peritoneal fluid. Tumor markers nonspecific. Due patient underwent unknown primary and possible differential includes [place] creatobiliary versus mullerian origin. Patient will need to be evaluated by [facility] oncology and is in process of transferring to [facility]. Continue with TPN. Discussed with the patient in detail. We will continue to follow and further recommendations based on the clinical course. Prognosis is poor at this time. Time with Patient: Greater than 30
--- NOTE | 2022-02-10 23:08 | P.CONS ---
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 and the patient currently undergoing work-up to look for the primary source patient did have a CT of the chest abdominal pelvis on 07 February significant fat stranding in the abdominal pelvis with peritoneal reflection thickening and moderate ascites nonspecific dilatation of small bowel loops no obvious abscess formation however developing abscess in the pelvis along the body while not excluded patient did ultrasound-guided seroma drainage on 02/08/2022 which was slightly c loudy with 8000 RBC on his 6 WBC cultures are currently pending patient was noticed to have a slight worsening of the white count on 08 February to 14.9 patient currently being treated with [facility] infectious disease was consulted for further management of antibiotic therapy, patient is currently afebrile throughout her hospital stay and denies having any rigors or chills that she has been complaining of abdominal pain more of a dull aching at times sharp 5-6 out of 10 head no radiation has been complaining of nauseated but no vomiting and no diarrhea Review of Systems Positive point has been mentioned in the HPI rest of the systems are negative Past Medical History Past Medical History: Hypertension History of Any Multi-Drug Resistant Organisms: None Reported Past Surgical History: Appendectomy, Cholecystectomy, Hernia Repair, Hysterectomy Additional Past Surgical History / Comment(s): gastro bypass Past Anesthesia/Blood Transfusion Reactions: No Reported Reaction Past Psychological History: No Psychological Hx Reported Smoking Status: Never smoker Past Alcohol Use History: Occasional Past Drug Use History: None Reported Medications and Allergies Home Medications Medication Instructions Recorded Confirmed Type Albuterol Sulfate [Ventolin HFA] 2 puff INHALATION RT-Q6H PRN 01/21/22 01/26/22 History Cyanocobalamin [Vitamin B-12 1,000 mcg SQ QMONTHLY 01/21/22 01/26/22 History Injection] Ergocalciferol (Vitamin D2) 1,250 mcg PO MO 01/21/22 01/26/22 History [Drisdol (50,000 Iu)] Folic Acid 1 mg PO DAILY 01/21/22 01/26/22 History Levothyroxine Sodium [Synthroid] 150 mcg PO DAILY 01/21/22 01/26/22 History Meclizine HCl 25 mg PO BID PRN 01/21/22 01/26/22 History Naltrexone HCl [Revia] 50 mg PO DAILY 01/21/22 01/26/22 History Pantoprazole [Protonix] 40 mg PO DAILY 01/21/22 01/26/22 History cloNIDine HCL [Catapres] 0.1 mg PO BID 01/21/22 01/26/22 History hydroCHLOROthiazide [Hydrodiuril] 12.5 mg PO DAILY 01/21/22 01/26/22 History Acetaminophen Tab [Tylenol] 650 mg PO Q6HR PRN tab 01/24/22 01/26/22 Rx Acetaminophen Tab [Tylenol Tab] 1,000 mg PO Q6HR PRN #30 tablet 01/28/22 Rx Simethicone [Gas-X] 125 mg PO AC-TID PRN #20 capsule 01/28/22 Rx Midodrine [ProAmatine] 5 mg PO AC-BID tab 02/10/22 Rx Piperacillin-Tazobactam [Zosyn] 3.375 gm IVPB Q8H each 02/10/22 Rx Allergies Allergy/AdvReac Type Severity Reaction Status Date / Time nickel Allergy Rash/Hives Verified 02/08/22 11:43 ranitidine [From Zantac] Allergy Swelling Verified 02/08/22 11:43 Physical Exam Vitals: Vital Signs Temp Pulse Pulse Resp BP BP Pulse Ox 02/10/22 07:38 84 02/10/22 07:27 80 02/10/22 04:54 98.2 F 73 18 117/72 93 L 02/09/22 20:23 84 02/09/22 20:12 83 92 L 02/09/22 20:00 98.3 F 83 16 102/65 92 L 02/09/22 11:00 18 FiO2 02/10/22 07:38 02/10/22 07:27 02/10/22 04:54 02/09/22 20:23 02/09/22 20:12 21 02/09/22 20:00 02/09/22 11:00 Intake and Output 02/09/22 02/10/22 02/10/22 22:59 06:59 14:59 Intake Total 400 1540 Output Total 400 600 Balance 0 940 Intake: Intake, IV Titration 400 800 Amount Piperacillin-Tazobactam 3 100 .375 gm In Sodium Chloride 0.9% 100 ml @ 25 mls/hr IVPB Q8H [facility] Rx#: [id number] Sodium Chloride 0.9% 1, 400 700 000 ml @ 50 mls/hr IV . Q20H [facility] Rx#:[id number] Oral 740 Output: Urine 400 600 Other: Voiding Method Toilet # Voids 2 # Bowel Movements 1 GENERAL DESCRIPTION: An elderly female lying in bed, no distress. No tachypnea or accessory muscle of respiration use. HEENT: Shows Pallor , no scleral icterus. Oral mucous membrane is dry. No pharyngeal erythema or thrush NECK: Trachea central, no thyromegaly. LUNGS: Unlabored breathing. Clear to auscultation anteriorly. No wheeze or crackle. HEART: S1, S2, regular rate and rhythm. No loud murmur ABDOMEN: Soft, soft, mild tenderness , drainage catheter with blood stained secretions EXTREMITIES: No edema of feet. SKIN: No rash, no masses palpable. NEUROLOGICAL: The patient is awake, alert, oriented x3, mood and affect normal. Results CBC & Chem 7: 02/10/22 06:44 02/10/22 06:44 Labs: Abnormal Lab Results - Last 24 Hours (Table) 02/10/22 02/10/22 Range/Units 06:44 06:44 WBC 12.7 H (3.8-10.6) k/uL RBC 3.73 L (3.80-5.40) m/uL Hgb 9.2 L (11.4-16.0) gm/dL Hct 32.5 L (34.0-46.0) % MCH 24.6 L (25.0-35.0) pg MCHC 28.2 L (31.0-37.0) g/dL RDW 17.9 H (11.5-15.5) % Plt Count 538 H (150-450) k/uL Neutrophils # 11.0 H (1.3-7.7) k/uL Lymphocytes # 0.5 L (1.0-4.8) k/uL Chloride 108 H (98-107) mmol/L Carbon Dioxide 21 L (22-30) mmol/L BUN 36 H (7-17) mg/dL Creatinine 1.61 H (0.52-1.04) mg/dL Glucose 103 H (74-99) mg/dL Calcium 7.7 L (8.4-10.2) mg/dL Magnesium 2.6 H (1.6-2.3) mg/dL Total Protein 5.9 L (6.3-8.2) g/dL Albumin 2.6 L (3.5-5.0) g/dL Microbiology - Last 24 Hours (Table) 02/08/22 12:05 Gram Stain - Preliminary Aspirate Body Fluid Culture - Preliminary Assessment and Plan (1) Leukocytosis Current Visit: Yes Status: Acute Code(s): D72.829 - ELEVATED WHITE BLOOD CELL COUNT, UNSPECIFIED SNOMED Code(s): 131886558 Plan: 1patient with a leukocytosis which is multifactorial in this patient who did h ave a poorly differentiated adenocarcinoma with initial surgery on 01/27/2022 with lysis of adhesion and some resection of the omentum and did have a ultrasound- guided drainage of the fluid on 02/08/2022 which was mostly bloody with the cultures currently pending however the white count is trending down. 2continue the patient on Zosyn while waiting for the culture to finalize. We will follow on clinical condition and cultures to further adjust medication if needed Thank you for this consultation will follow this patient along with you Time with Patient: Greater than 30
[2022-02-10] MEDS: MORPHINE SULFATE 2 MG/ML SYRINGE IVP PRN (23:42)
[2022-02-11] MEDS: LACTATED RINGERS 1,000 ML IV SCH (00:27)
[2022-02-11] MEDS: HYDROmorphone 1 MG/ML 1 ML SYRINGE IVP PRN ×10 (01:22→21:55)
[2022-02-11] MEDS: PIPERACILLIN-TAZOBACTAM 3.375 GM in SODIUM CHLORIDE 0.9% 100 ML IVPB SCH ×3 (03:21→21:10)
[2022-02-11] MEDS: ONDANSETRON 4 MG/2 ML VIAL IVP SCH ×3 (05:26→17:36)
[2022-02-11] MEDS: METOCLOPRAMIDE 5 MG/ML 2 ML VIAL IVP SCH ×3 (05:26→17:36)
[2022-02-11] MEDS: LEVOTHYROXINE 75 MCG TAB PO SCH (05:29)
[2022-02-11] MEDS: ACETAMINOPHEN TAB 500 MG TAB PO SCH ×4 (05:31→17:49)
[2022-02-11 06:45] LABS: Ionized Calcium 4.7 mg/dL (4.5-5.3)
[2022-02-11 07:03] LABS: African American GFR (CKD) 35 (>60 ml/min/1.73 sqM); Anion Gap 8 mmol/L; Blood Urea Nitrogen 39 mg/dL (7-17); Calcium 7.9 mg/dL (8.4-10.2); Carbon Dioxide 24 mmol/L (22-30); Chloride 106 mmol/L (98-107); Glucose 125 mg/dL (74-99); Magnesium 2.5 mg/dL (1.6-2.3); Non-African American GFR(CKD) 31 (>60 ml/min/1.73 sqM); Phosphorus 4.1 mg/dL (2.5-4.5); Potassium 4.2 mmol/L (3.5-5.1); Sodium 138 mmol/L (137-145)
[2022-02-11] MEDS: SENNOSIDES-DOCUSATE SODIUM 1 EACH TAB PO SCH ×2 (07:34→21:10)
[2022-02-11] MEDS: ALBUTEROL NEBULIZED 2.5 MG/3 ML INHALATION PRN ×2 (08:01→20:33)
[2022-02-11] MEDS: HEPARIN SODIUM,PORCINE/PF 5,000 UNIT/0.5 ML SYRINGE SQ SCH ×2 (08:37→21:10)
[2022-02-11] MEDS: PANTOPRAZOLE 40 MG TABLET PO SCH (08:37)
[2022-02-11] MEDS: MIDODRINE 5 MG TAB PO SCH ×2 (08:38→17:35)
[2022-02-11 09:04] LABS: Basophils # (A) 0.09 X 10*3/uL (0.00-0.10); Basophils % (A) 0.6 %; Eosinophils # (A) 0.21 X 10*3/uL (0.04-0.35); Eosinophils % (A) 1.4 %; HCT 31.1 % (37.2-46.3); HGB 8.8 g/dL (12.0-15.0); Immature Grans, Automated 2.1 %; Lymphocytes % (A) 3.3 %; MCH 23.9 pg (27.0-32.0); MCHC 28.3 g/dL (32.0-37.0); MCV 84.5 fL (80.0-97.0); Mean Platelet Volume 10.7 fL (9.5-12.2); Monocytes # (A) 1.41 X 10*3/uL (0.20-1.00); Monocytes % (A) 9.2 %; NRBC Per 100 WBC 0 /100 WBCS (0.0-0.0); Neutrophils # (A) 12.74 X 10*3/uL (1.80-7.70); Neutrophils % (A) 83.4 %; Platelet Count 452 X 10*3/uL (140-440); RBC 3.68 X 10*6/uL (4.10-5.20); RDW 19.9 % (11.5-14.5); WBC 15.27 X 10*3/uL (4.50-10.00)
--- NOTE | 2022-02-11 10:40 | IR ---
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 PROCEDURE: Hand hygiene obtained with soap and water and alcohol-based hand rub. After informed consent, the skin overlying the left basilic vein was localized with ultrasound and no clay to be compressible and patent. An ultrasound image was obtained and submitted on the patient's c horowitz. The overlying skin was prepped and draped and Lidocaine was used for local anesthesia. A skin marko was made with a scalpel. Access was gained to the vein under ultrasound guidance with a 21 gau ge needle and a 0.018 inch wire was advanced. Access site was dilated with Peel-Away sheath and cath eter tailored to the appropriate length and advanced such that the distal tip is at the cavoatrial ju nction. Spot image was obtained verifying placement. Catheter was fixed to the skin and a sterile d ressing was placed following hemostasis. Catheter was aspirated and flushed with saline. Patient wa s discharged in stable condition without complication.Maximal barrier technique is utilized. Ultraso und image is documented on the chart. Ultrasound used with sterile technique. Fluoro time and fluoroscopic images submitted to document procedure: 0.2 minutes fluoroscopy time, 87 intraoperative images document the procedure IMPRESSION: STATUS POST ULTRASOUND AND FLUOROSCOPIC GUIDED PICC LINE PLACEMENT, READY FOR USE. THIS PROCEDURE WAS PERFORMED BY THE UNDERSIGNED.
--- NOTE | 2022-02-11 12:06 | P.PN ---
Subjective Patient is seen for follow-up for acute kidney injury. Patient is maintained on IV fluids. Renal function eller had improved serum creatinine down to about 1.2-1.3 however over the last couple of days serum creatinine has been rising again. Currently stable at about 1.6 mg/dL. No urine retention Patient has been started on TPN. Complaining of increased lower extremity swelling. Objective - Vital Signs Vital signs: Vital Signs Temp 98.6 F 02/11/22 04:35 Pulse 80 02/11/22 08:09 Resp 16 02/11/22 04:35 BP 121/66 02/11/22 04:35 Pulse Ox 93 L 02/11/22 07:59 FiO2 21 02/09/22 20:12 Intake & Output 02/10/22 02/11/22 02/11/22 18:59 06:59 18:59 Intake Total 0 920 Output Total 2 Balance -2 920 Weight 104.326 kg Intake: IV 0 Intake, IV Titration 680 Amount Piperacillin-Tazobactam 3 200 .375 gm In Sodium Chloride 0.9% 100 ml @ 25 mls/hr IVPB Q8H [facility] Rx#: [id number] Sodium Acetate 30 meq 360 Potassium Acetate 20 meq Calcium Chloride 0.33 gm In Amino Acids 5 %/ Dextrose 20 % 1,000 ml @ 80 mls/hr IV .BY DURATION [facility] Rx#:[id number] Sodium Chloride 0.9% 1, 120 000 ml @ 0 mls/hr IV .STK -MED ONE Rx#:[id number] Oral 240 Output: Urine/Stool Mix 2 Other: Voiding Method Toilet Toilet Toilet # Voids 1 # Bowel Movements 1 - Exam Awake, comfortable, no acute distress Examination of the heart S1 and S2 Examination lungs bilateral breath sounds are heard Abdomen is soft tenderness noted in the upper abdomen Examination lower extremities shows edema 2+ bilaterally MONITOR TECH exam is grossly intact - Labs CBC & Chem 7: 02/11/22 06:09 02/11/22 06:09 Labs: Abnormal Lab Results - Last 24 Hours (Table) 02/10/22 02/11/22 02/11/22 Range/Units 06:44 06:09 06:09 WBC 15.27 H (4.50-10.00) X 10*3/uL RBC 3.68 L (4.10-5.20) X 10*6/uL Hgb 8.8 L (12.0-15.0) g/dL Hct 31.1 L (37.2-46.3) % MCH 23.9 L (27.0-32.0) pg MCHC 28.3 L (32.0-37.0) g/dL RDW 19.9 H (11.5-14.5) % Plt Count 452 H (140-440) X 10*3/uL Immature Gran # 0.32 H (0.00-0.04) X 10*3/uL Neutrophils # 12.74 H (1.80-7.70) X 10*3/uL Lymphocytes # 0.50 L (0.90-5.00) X 10*3/uL Monocytes # 1.41 H (0.20-1.00) X 10*3/uL BUN 39 H (7-17) mg/dL Creatinine 1.64 H (0.52-1.04) mg/dL Glucose 125 H (74-99) mg/dL Calcium 7.9 L (8.4-10.2) mg/dL Phosphorus 4.9 H (2.5-4.5) mg/dL Magnesium 2.5 H (1.6-2.3) mg/dL Microbiology - Last 24 Hours (Table) 02/08/22 12:05 Anaerobic Culture - Preliminary Aspirate 02/08/22 12:05 Gram Stain - Preliminary Aspirate Body Fluid Culture - Preliminary Assessment and Plan Assessment: 1. Acute kidney injury secondary to ATN from hypotension. Renal function had improved but worse again over the last couple of days. Blood pressure had been low early this morning. No urine retention. CT of the abdomen showed no evidence of hydronephrosis. UA shows trace protein. Right kidney is atrophic 2. 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 History of gastric bypass 4. Anemia with iron deficiency status post IV iron 5. Fluid collection noted in the pelvis area on CT scan, being followed by surgery Plan: Continue TPN Add IV Lasix Encourage increased oral intake Continue to monitor renal function.
[2022-02-11] MEDS: FUROSEMIDE 10 MG/ML 2 ML VIAL IV SCH (13:13)
--- NOTE | 2022-02-11 13:34 | P.PN ---
Subjective Progress Note Date: 02/11/22 CHIEF COMPLAINT: Abdominal pain HISTORY OF PRESENT ILLNESS: Patient status post Robotic lysis of adhesions, omental excisional biopsy for pseudomyxoma peritonei, aspiration of peritoneal fluid/ascites for cell cytology. 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 Patient underwent EGD that revealed upper esophageal stricture status post dilation. Patient is unable to tolerate bowel prep for colonoscopy. Therefore colonoscopy was not completed during this admission. Patient is awaiting bed for transfer to [facility]. Patient had the drain from her upper abdomen removed by IR yesterday. She's been started on TPN for nutrition support. Patient complains of increased swelling in her lower extremities. Nephrology has started her on IV Lasix. Patient seen by infectious disease. Patient is sitting at bedside chair. She appears more comfortable. Her pain is controlled. Afebrile. WBC 12.7 up to 15.2 7H she be 8.8 platelets 452 sodium 138 potassium 4.2 creatinine 1.64 PHYSICAL EXAM: VITAL SIGNS: Reviewed GENERAL: Well-developed in no acute distress. HEENT: No sclera icterus. Extraocular movements grossly intact. Moist buccal mucosa. Head is atraumatic, normocephalic. Hears conversational speech. No nasal drainage. NECK: Supple without lymphadenopathy. CHEST: Non-labored respirations and equal bilateral excursions. CARDIOVASCULAR: Palpable 2+ radial pulses. ABDOMEN: Soft. Nondistended. Diffuse tenderness MUSCULOSKELETAL: No clubbing or cyanosis. NEUROLOGIC: No focal or lateralizing signs. Cranial nerves II through XII grossly intact. PSYCH: Appropriate affect. Alert and oriented to person, place and time. SKIN: Well perfused. Good skin turgor. ASSESSMENT: 1. 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 Constipation 3. Abdominal ileus 4. Carcinomatosis of the abdomen, poorly differentiated adenocarcinoma 5. Acute kidney injury 6. Severe protein calorie malnutrition PLAN: -Awaiting bed availability at [facility] to complete transfer -Continue supportive care -Continue pain management per oncology service -Diuretic management per nephrology service -Continue TPN for nutrition support -Consult PT OT -Antibiotic management per infectious disease service Physician Director Data Processing note has been reviewed by physician. Signing provider agrees with the documented findings, assessment, and plan of care. Please see additional documentation below CHIEF COMPLAINT: Intractable nausea vomiting and intractable abdominal pain due to metastatic carcinoma of the abdomen HISTORY OF PRESENT ILLNESS: The patient is a 76-year-old female status post diagnostic laparoscopy with omental biopsy and lysis of adhesions 01/27/2022. Biopsies demonstrated carcinomatosis of metastatic poorly differentiated adenocarcinoma of unknown primary. Oncological workup including gastroenterology, biliopancreatic source was performed. Despite numerous at tempts, patient unable to tolerate enema or bowel prep for colonoscopy. Gynecology oncology assessment not available at this institution for further workup. Patient had PICC line for TPN and venous access including antibiotics. Discussion with nephrology agreeable with Lasix. Patient being seen by infectious disease for leukocytosis including malignant ascites. Overall, patient reports that her abdominal pain is better managed including her nausea with scheduled medications. ROS: No fevers or chills. No new chest pain. No productive sputum. PHYSICAL EXAM: VITAL SIGNS: Reviewed CONSTITUTIONAL: Well developed and in no acute distress. EYES: Conjuctivae without sclera icterus. Extraocular movements grossly intact. HEAD, EARS, NOSE, THROAT: Head is atraumatic, normocephalic. Hears conversational speech. No nasal drainage. RESPIRATORY: Non-labored respirations and equal bilateral excursions. CARDIOVASCULAR: 2+ radial pulses. ABDOMEN: Obese, protuberant. Decreased swelling right upper abdomen. No diffuse peritonitis. MUSCULOSKELETAL: No clubbing. No cyanosis. SKIN: Good skin turgor. Well perfused. NEUROLOGIC: Cranial nerves II through XII grossly intact. No focal or lateralizing signs. PSYCH: Alert and oriented to person, place and time. CLINICAL LABS: Reviewed. WBC elevated over 15,000. Creatinine elevated 1.64 from baseline 1.0. ASSESSMENT: 1. 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 History of gastric bypass 3. Peritoneal adhesions 4. Chronic abdominal pain with malignant ascites 5. 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 Ileus 7. Thrombocytosis 8. Leukocytosis 9. Carcinomatosis with resultantintractable abdominal pain 10. Moderate to severe protein malnutrition requiring TPN PLAN: 1. I placed patient on Lasix scheduled. Further recommendations per nephrology. 2. Pain management per oncology team. 3. Antibiotic management per infectious disease. Await final cultures. 4. Await transfer to [facility] for gynecology oncology unavailable at this institution. Objective - Vital Signs Vital signs: Vital Signs Temp 98.5 F 02/11/22 12:31 Pulse 85 02/11/22 12:31 Resp 18 02/11/22 12:31 BP 117/77 02/11/22 12:31 Pulse Ox 92 L 02/11/22 12:31 FiO2 21 02/09/22 20:12 Intake & Output 02/10/22 02/11/22 02/11/22 18:59 06:59 18:59 Intake Total 0 920 Output Total 2 Balance -2 920 Weight 104.326 kg 104.326 kg Intake: IV 0 Intake, IV Titration 680 Amount Piperacillin-Tazobactam 3 200 .375 gm In Sodium Chloride 0.9% 100 ml @ 25 mls/hr IVPB Q8H [facility] Rx#: [id number] Sodium Acetate 30 meq 360 Potassium Acetate 20 meq Calcium Chloride 0.33 gm In Amino Acids 5 %/ Dextrose 20 % 1,000 ml @ 80 mls/hr IV .BY DURATION [facility] Rx#:[id number] Sodium Chloride 0.9% 1, 120 000 ml @ 0 mls/hr IV .STK -MED ONE Rx#:[id number] Oral 240 Output: Urine/Stool Mix 2 Other: Voiding Method Toilet Toilet Toilet # Voids 1 # Bowel Movements 1 - Labs CBC & Chem 7: 02/12/22 06:18 02/12/22 06:18 Labs: Abnormal Lab Results - Last 24 Hours (Table) 02/10/22 02/11/22 02/11/22 Range/Units 06:44 06:09 06:09 WBC 15.27 H (4.50-10.00) X 10*3/uL RBC 3.68 L (4.10-5.20) X 10*6/uL Hgb 8.8 L (12.0-15.0) g/dL Hct 31.1 L (37.2-46.3) % MCH 23.9 L (27.0-32.0) pg MCHC 28.3 L (32.0-37.0) g/dL RDW 19.9 H (11.5-14.5) % Plt Count 452 H (140-440) X 10*3/uL Immature Gran # 0.32 H (0.00-0.04) X 10*3/uL Neutrophils # 12.74 H (1.80-7.70) X 10*3/uL Lymphocytes # 0.50 L (0.90-5.00) X 10*3/uL Monocytes # 1.41 H (0.20-1.00) X 10*3/uL BUN 39 H (7-17) mg/dL Creatinine 1.64 H (0.52-1.04) mg/dL Glucose 125 H (74-99) mg/dL Calcium 7.9 L (8.4-10.2) mg/dL Phosphorus 4.9 H (2.5-4.5) mg/dL Magnesium 2.5 H (1.6-2.3) mg/dL Microbiology - Last 24 Hours (Table) 02/08/22 12:05 Anaerobic Culture - Preliminary Aspirate 02/08/22 12:05 Gram Stain - Preliminary Aspirate Body Fluid Culture - Preliminary
--- NOTE | 2022-02-11 16:01 | P.PN ---
Subjective Progress Note Date: 02/11/22 Principal diagnosis: Leukocytosis Patient is a 76-year-old to female presented to hospital on 01/26/2022 for abdominal pain in this patient was status post lysis of adhesion omental biopsy with evidence of poorly differentiated adenocarcinoma subsequently did have a CT of the abdominal pelvis with evidence of moderate ascites status post CT-guided drainage which was mostly blood stained and the patient was noticed to have worsening white count that prompted this infection disease consultation. Baseline on today's evaluation that is 02/11/2022, the patient denies having any fever or chills, the patient still complaining of abdominal pain however no worsening though the drainage catheter was discontinued last night, denies any chest pain or shortness of breath or cough and no diarrhea Objective - Vital Signs Vital signs: Vital Signs Temp 98.5 F 02/11/22 12:31 Pulse 85 02/11/22 12:31 Resp 18 02/11/22 12:31 BP 117/77 02/11/22 12:31 Pulse Ox 92 L 02/11/22 12:31 FiO2 21 02/09/22 20:12 Intake & Output 02/10/22 02/11/22 02/11/22 18:59 06:59 18:59 Intake Total 0 920 Output Total 2 Balance -2 920 Weight 104.326 kg 104.326 kg Intake: IV 0 Intake, IV Titration 680 Amount Piperacillin-Tazobactam 3 200 .375 gm In Sodium Chloride 0.9% 100 ml @ 25 mls/hr IVPB Q8H [facility] Rx#: [id number] Sodium Acetate 30 meq 360 Potassium Acetate 20 meq Calcium Chloride 0.33 gm In Amino Acids 5 %/ Dextrose 20 % 1,000 ml @ 80 mls/hr IV .BY DURATION [facility] Rx#:[id number] Sodium Chloride 0.9% 1, 120 000 ml @ 0 mls/hr IV .STK -MED ONE Rx#:[id number] Oral 240 Output: Urine/Stool Mix 2 Other: Voiding Method Toilet Toilet Toilet # Voids 1 # Bowel Movements 1 - Exam GENERAL DESCRIPTION: An elderly female lying in bed in no distress RESPIRATORY SYSTEM: Unlabored breathing , decreased breath sounds at bases HEART: S1 S2 regular rate and rhythm , ABDOMEN: Soft , mild tenderness EXTREMITIES: No edema feet - Labs CBC & Chem 7: 02/11/22 06:09 02/11/22 06:09 Labs: Abnormal Lab Results - Last 24 Hours (Table) 02/10/22 02/11/22 02/11/22 Range/Units 06:44 06:09 06:09 WBC 15.27 H (4.50-10.00) X 10*3/uL RBC 3.68 L (4.10-5.20) X 10*6/uL Hgb 8.8 L (12.0-15.0) g/dL Hct 31.1 L (37.2-46.3) % MCH 23.9 L (27.0-32.0) pg MCHC 28.3 L (32.0-37.0) g/dL RDW 19.9 H (11.5-14.5) % Plt Count 452 H (140-440) X 10*3/uL Immature Gran # 0.32 H (0.00-0.04) X 10*3/uL Neutrophils # 12.74 H (1.80-7.70) X 10*3/uL Lymphocytes # 0.50 L (0.90-5.00) X 10*3/uL Monocytes # 1.41 H (0.20-1.00) X 10*3/uL BUN 39 H (7-17) mg/dL Creatinine 1.64 H (0.52-1.04) mg/dL Glucose 125 H (74-99) mg/dL Calcium 7.9 L (8.4-10.2) mg/dL Phosphorus 4.9 H (2.5-4.5) mg/dL Magnesium 2.5 H (1.6-2.3) mg/dL Microbiology - Last 24 Hours (Table) 02/08/22 12:05 Anaerobic Culture - Preliminary Aspirate 02/08/22 12:05 Gram Stain - Preliminary Aspirate Body Fluid Culture - Preliminary Assessment and Plan (1) Leukocytosis Current Visit: Yes Status: Acute Code(s): D72.829 - ELEVATED WHITE BLOOD CELL COUNT, UNSPECIFIED SNOMED Code(s): 393738945 Plan: 1patient with a leukocytosis which is multifactorial in this patient who did have a poorly differentiated adenocarcinoma with initial surgery on 01/27/2022 with lysis of adhesion and some resection of the omentum and did have a ultrasound-guided drainage of the fluid on 02/08/2022 which was mostly bloody with the cultures currently pending 2patient to continue the patient on Zosyn however in view of the worsening of the white count will add Eraxis to cover for the antifungal cannot use Diflucan because of fentanyl the patient is on Time with Patient: Less than 30
--- NOTE | 2022-02-11 16:13 | P.PN ---
Subjective Progress Note Date: 02/11/22 Principal diagnosis: Adenocarconoma Objective - Vital Signs Vital signs: Vital Signs Temp 98.5 F 02/11/22 12:31 Pulse 85 02/11/22 12:31 Resp 18 02/11/22 12:31 BP 117/77 02/11/22 12:31 Pulse Ox 92 L 02/11/22 12:31 FiO2 21 02/09/22 20:12 Intake & Output 02/10/22 02/11/22 02/11/22 18:59 06:59 18:59 Intake Total 0 920 Output Total 2 Balance -2 920 Weight 104.326 kg 104.326 kg Intake: IV 0 Intake, IV Titration 680 Amount Piperacillin-Tazobactam 3 200 .375 gm In Sodium Chloride 0.9% 100 ml @ 25 mls/hr IVPB Q8H [facility] Rx#: [id number] Sodium Acetate 30 meq 360 Potassium Acetate 20 meq Calcium Chloride 0.33 gm In Amino Acids 5 %/ Dextrose 20 % 1,000 ml @ 80 mls/hr IV .BY DURATION [facility] Rx#:[id number] Sodium Chloride 0.9% 1, 120 000 ml @ 0 mls/hr IV .STK -[facility] Rx#:[id number] Oral 240 Output: Urine/Stool Mix 2 Other: Voiding Method Toilet Toilet Toilet # Voids 1 # Bowel Movements 1 - Exam - Constitutional General appearance: Present: cooperative, no acute distress, obese - EENT Eyes: Present: anicteric sclerae, EOMI ENT: Present: hearing grossly normal - Respiratory Details: resp even and unlabored - Gastrointestinal General gastrointestinal: Present: decreased bowel sounds (distant), soft, tenderness palpable RUQ - Neurologic Neurologic: Present: CNII-XII intact - Musculoskeletal Musculoskeletal: Present: generalized weakness - Psychiatric Psychiatric: Present: A&O x's 3, appropriate affect, intact judgment & insight - Labs CBC & Chem 7: 02/11/22 06:09 02/11/22 06:09 Labs: Abnormal Lab Results - Last 24 Hours (Table) 02/11/22 02/11/22 Range/Units 06:09 06:09 WBC 15.27 H (4.50-10.00) X 10*3/uL RBC 3.68 L (4.10-5.20) X 10*6/uL Hgb 8.8 L (12.0-15.0) g/dL Hct 31.1 L (37.2-46.3) % MCH 23.9 L (27.0-32.0) pg MCHC 28.3 L (32.0-37.0) g/dL RDW 19.9 H (11.5-14.5) % Plt Count 452 H (140-440) X 10*3/uL Immature Gran # 0.32 H (0.00-0.04) X 10*3/uL Neutrophils # 12.74 H (1.80-7.70) X 10*3/uL Lymphocytes # 0.50 L (0.90-5.00) X 10*3/uL Monocytes # 1.41 H (0.20-1.00) X 10*3/uL BUN 39 H (7-17) mg/dL Creatinine 1.64 H (0.52-1.04) mg/dL Glucose 125 H (74-99) mg/dL Calcium 7.9 L (8.4-10.2) mg/dL Magnesium 2.5 H (1.6-2.3) mg/dL Microbiology - Last 24 Hours (Table) 02/08/22 12:05 Anaerobic Culture - Preliminary Aspirate 02/08/22 12:05 Gram Stain - Preliminary Aspirate Body Fluid Culture - Preliminary Assessment and Plan (1) Partial small bowel obstruction Current Visit: Yes Status: Acute Code(s): K56.600 - PARTIAL INTESTINAL OBSTRUCTION, UNSPECIFIED TO CAUSE SNOMED Code(s): 879285591 (2) Adenocarcinoma carcinomatosis Narrative/Plan: - Unknown primary origina New diagnosis of poorly differentiated adenocarcinoma, Differentials include Ovarian/Uterine, upper GI, pancreaticobiliary versus mullerian primary. Ascitic fluid + for same. Unable to tolerate Prep due to persistent nausea and pain Changes to pain and nausea medications have im[roved her comfort Awaiting transfer Dr. Mccoy has explained in detail picture and need of further diagnostics EGD planned by General surgery Picc line TPN COntinue Ativan, Fentanyl and dilaudid and bowel regimen Current Visit: Yes Status: Acute Code(s): C80.0 - DISSEMINATED MALIGNANT NEOPLASM, UNSPECIFIED SNOMED Code(s): 331510258 Plan: Assessment and Plan (1) Adenocarcinoma carcinomatosis Narrative/Plan: at this time the patient has carcinomatosis from adenocarcinoma of unknown primary. - She is in a quite a bit of pain and have added a low dose fentanyl patch for her with cowel regimen Differential diagnoses for primary site include following, and tentatively, as well as ovarian - Patient's recent EGD has been negative. Her MRI results were discussed in detail with her yesterday by Dr. Mccoy. They show a possible abnormality in the common bile duct, either artifact, versus possible stricture. The patient does have a prior history of urinary obstruction requiring surgery. Therefore possible to findings, versus artifact, versus malignant stricture are still in the differential - . This was discussed in detail with the patient. gastroenterology was consulted to evaluate the MRI. They feel ERCP or EUS is not necessary at this time as this is likely scar tissue from prior procedure, in speaking with GI RECORDS MANAGEMENT MANAGER today. - colonoscopy is still pending adequately prep Current Visit: Yes Status: Acute Code(s): C80.0 - DISSEMINATED MALIGNANT NEOPLASM, UNSPECIFIED SNOMED Code(s): 454408307 Will transfer to [facility] oncology Increase fentanyl 50mcg Add ativan PRN Nausea Picc line per Surgery for TPN PT/OT Awaiting bed at [facility]. Status post EGD today
[2022-02-11] MEDS ORDERED: ANIDULAFUNGIN 200 MG in SODIUM CHLORIDE 0.9% 200 ML IVPB ONE (17:00)
[2022-02-11] MEDS ORDERED: FAT EMULSION 20% 500 ML in EMPTY BAG 1 BAG IV SCH (17:00)
--- NOTE | 2022-02-11 17:06 | XR ---
EXAMINATION TYPE: XR chest 1V portable DATE OF EXAM: 02/11/2022 4:46 PM COMPARISON: CT Angio 01/21/2022 TECHNIQUE: XR chest 1V portable Frontal view of the chest. CLINICAL INDICATION:Female, 76 years old with history of increased oxygen need; FINDINGS: Lungs/Pleura: There is no evidence of pleural effusion, focal consolidation, or pneumothorax. Pulmonary vascularity: Mild pulmonary vascular congestion. Heart/mediastinum: Cardiomediastinal silhouette is enlarged and stable. Musculoskeletal: No acute osseous pathology. Left shoulder anchor noted in the humerus Lines/Tubes: Left-sided PICC with distal tip at the superior cavoatrial junction.. IMPRESSION: 1. Mild pulmonary vascular congestion with cardiomegaly correlate with serum BNP. 2. Left PICC in appropriate position.
[2022-02-11] MEDS: 1: MVI, ADULT NO.4 WITH VIT K 10 ML, TRACE (CONC-1ML/DOSE) 1 ML, SODIUM ACETATE 30 MEQ, IV SCH ×6 (17:36)
[2022-02-12] MEDS: ONDANSETRON 4 MG/2 ML VIAL IVP SCH ×4 (00:29→18:40)
[2022-02-12] MEDS: ACETAMINOPHEN TAB 500 MG TAB PO SCH ×4 (00:29→19:24)
[2022-02-12] MEDS: METOCLOPRAMIDE 5 MG/ML 2 ML VIAL IVP SCH ×3 (00:30→12:13)
[2022-02-12] MEDS: HYDROmorphone 1 MG/ML 1 ML SYRINGE IVP PRN ×9 (00:30→19:46)
[2022-02-12 01:30] LABS: Glucose,Whole Blood 150 mg/dL (70-110)
[2022-02-12] MEDS: PIPERACILLIN-TAZOBACTAM 3.375 GM in SODIUM CHLORIDE 0.9% 100 ML IVPB SCH ×2 (04:38→13:26)
[2022-02-12] MEDS: LEVOTHYROXINE 75 MCG TAB PO SCH (06:16)
[2022-02-12] MEDS: 1: MVI, ADULT NO.4 WITH VIT K 10 ML, TRACE (CONC-1ML/DOSE) 1 ML, SODIUM ACETATE 30 MEQ, IV SCH ×12 (06:32→19:25)
[2022-02-12 06:47] LABS: Glucose,Whole Blood 150 mg/dL (70-110)
[2022-02-12 06:58] LABS: African American GFR (CKD) 33 (>60 ml/min/1.73 sqM); Anion Gap 8 mmol/L; Blood Urea Nitrogen 40 mg/dL (7-17); Calcium 7.8 mg/dL (8.4-10.2); Carbon Dioxide 25 mmol/L (22-30); Chloride 103 mmol/L (98-107); Glucose 113 mg/dL (74-99); Magnesium 2.4 mg/dL (1.6-2.3); Non-African American GFR(CKD) 29 (>60 ml/min/1.73 sqM); Phosphorus 3.2 mg/dL (2.5-4.5); Potassium 3.9 mmol/L (3.5-5.1); Sodium 136 mmol/L (137-145)
[2022-02-12] MEDS: ALBUTEROL NEBULIZED 2.5 MG/3 ML INHALATION PRN (07:49)
[2022-02-12] MEDS ORDERED: POTASSIUM CHLORIDE 20 MEQ in WATER FOR INJECTION 1 100ML.BAG IVPB ONE (09:00)
[2022-02-12] MEDS ORDERED: ANIDULAFUNGIN 100 MG in SODIUM CHLORIDE 0.9% 100 ML IVPB SCH (09:00)
[2022-02-12] MEDS: SENNOSIDES-DOCUSATE SODIUM 1 EACH TAB PO SCH ×2 (09:17→09:31)
[2022-02-12] MEDS: MIDODRINE 5 MG TAB PO SCH ×3 (09:17→19:24)
[2022-02-12] MEDS: PANTOPRAZOLE 40 MG TABLET PO SCH (09:17)
[2022-02-12] MEDS: FUROSEMIDE 10 MG/ML 2 ML VIAL IV SCH (09:18)
[2022-02-12] MEDS: SCOPOLAMINE 1 MG/72 HR PATCH TRANSDERM SCH (09:18)
[2022-02-12] MEDS: HEPARIN SODIUM,PORCINE/PF 5,000 UNIT/0.5 ML SYRINGE SQ SCH (09:18)
[2022-02-12 10:45] LABS: Anisocytosis Slight; Basophils # (A) 0.1 k/uL (0-0.2); Basophils % (A) 1 %; Eosinophils # (A) 0.4 k/uL (0-0.7); Eosinophils % (A) 3 %; HCT 31.6 % (34.0-46.0); HGB 9.3 gm/dL (11.4-16.0); Hypochromasia Marked; Lymphocytes # (A) 0.6 k/uL (1.0-4.8); Lymphocytes % (A) 4 %; MCHC 29.4 g/dL (31.0-37.0); MCV 88.3 fL (80.0-100.0); Monocytes # (A) 0.8 k/uL (0-1.0); Monocytes % (A) 5 %; Neutrophils # (A) 12.2 k/uL (1.3-7.7); Neutrophils % (A) 86 %; Platelet Count 416 k/uL (150-450); RBC 3.58 m/uL (3.80-5.40); RDW 18.6 % (11.5-15.5); WBC 14.1 k/uL (3.8-10.6)
--- NOTE | 2022-02-12 11:39 | P.PN ---
Subjective Progress Note Date: 02/11/22 Patient is a 76-year-old female with a known history of hypertension, hypothyroidism, history of IVC filter and prior gastric bypass surgery who was admitted to the hospital on 01/26/2022 with complaints of left lower quadrant abdominal pain. Found to have bowel obstruction and was admitted to the hospital.. 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 Patient went into acute kidney injury with creatinine went up to 1.6. Pathology report showed poorly differentiated adenocarcinoma with the primary being upper GI, pancreatobiliary versus mullerian primary. Patient underwent work-up including EGD, MRCP and tumor markers were done. Patient had MRI of the liver which showed abdominal ascites without change. There are pleural effusions which are new compared to recent CT scan. Incomplete visualization of the mid common bile duct of uncertain significance. Stricture is possible. There is mild ectasia of the intrahepatic bile ducts. Cologuard was attempted on 02/03/2022 but could not be done due to fecal impaction and poor preparation. Patient has been having vomiting. MRI of the liver findings are likely due to scar tissue from previous ERCP and CBD stone Obstruction and surgical extraction. LFTs were normal and ERCP was not recommended by gastroenterology. Patient had ultrasound-guided seroma drainage on 02/08/2022. Patient is unable to tolerate oral diet. PICC line was placed and started on TPN. Also on antibiotics due to persistent leukocytosis. Due to metastatic cancer and possible hepatobiliary versus mullerian origin of the primary malignancy, patient will need to be evaluated by [facility] oncology and is pending transfer at this time. , Patient underwent EGD again on 02/10/2022 due to dysphagia and stricture status post dilation. Laboratory today showed WBC 12.7 hemoglobin 9.8 and platelets 538 sodium 139 potassium 4.5 chloride 108 bicarb 21 BUN 36 and creatinine 1.6 calcium 7.7 phosphorus 4.9 and magnesium 2.6 and albumin 2.6 02/11/2022 Patient is sitting on the side of bed. Awake alert and oriented. Does have generalized weakness and. Patient is able to tolerate liquid after esophageal stricture dilation. Maintained on TPN also. Patient is still having bilateral leg swelling and was started on IV Lasix. Nep hrology and ID is on board. . Patient is on antibiotics in the form of Zosyn and also on micafungin. Chest x-ray showed mild pulmonary vascular congestion and cardiomegaly correlate for serum BNP. Left PICC appropriate position. Other laboratory data reviewed. Patient is awaiting to be transferred to [facility] to be seen by [facility] oncology. Current medications reviewed. Objective - Vital Signs Vital signs: Vital Signs Temp 98.6 F 02/11/22 04:35 Pulse 80 02/11/22 08:09 Resp 16 02/11/22 04:35 BP 121/66 02/11/22 04:35 Pulse Ox 93 L 02/11/22 07:59 FiO2 21 02/09/22 20:12 Intake & Output 02/10/22 02/11/22 02/11/22 18:59 06:59 18:59 Intake Total 0 920 Output Total 2 Balance -2 920 Weight 104.326 kg 104.326 kg Intake: IV 0 Intake, IV Titration 680 Amount Piperacillin-Tazobactam 3 200 .375 gm In Sodium Chloride 0.9% 100 ml @ 25 mls/hr IVPB Q8H [facility] Rx#: [id number] Sodium Acetate 30 meq 360 Potassium Acetate 20 meq Calcium Chloride 0.33 gm In Amino Acids 5 %/ Dextrose 20 % 1,000 ml @ 80 mls/hr IV .BY DURATION [facility] Rx#:[id number] Sodium Chloride 0.9% 1, 120 000 ml @ 0 mls/hr IV .STK [facility] Rx#:[id number] Oral 240 Output: Urine/Stool Mix 2 Other: Voiding Method Toilet Toilet Toilet # Voids 1 # Bowel Movements 1 - Exam PHYSICAL EXAMINATION: Patient is lying in the bed comfortably, no acute distress, awake alert and oriented.. HEENT: Normocephalic. Neck is supple. Pupils reactive. Nostrils clear. Oral cavity is moist. Neck reveals no JVD, carotid bruits, or thyromegaly. CHEST EXAMINATION: Trachea is central. Symmetrical expansion. Bibasilar diminished sounds. Lung hawkins clear to auscultation and percussion. CARDIAC: Normal S1, S2 with no gallops. No murmurs ABDOMEN: Soft. Abdominal distention with ascites. Surgical incision site h ealing. Bowel sounds normal. No organomegaly. No abdominal bruits. Extremities: Bilateral lower extremity 2+ edema. No clubbing or cyanosis Neurologically awake, alert, oriented x3 with well-coordinated movements. No focal deficits noted Skin: No rash or skin lesions. Psychiatric: Coperative. Nonsuicidal Musculoskeletal: No joint swelling or deformity. Normal range of motion. - Labs CBC & Chem 7: 02/12/22 06:18 02/12/22 06:18 Labs: Abnormal Lab Results - Last 24 Hours (Table) 02/10/22 02/11/22 02/11/22 Range/Units 06:44 06:09 06:09 WBC 15.27 H (4.50-10.00) X 10*3/uL RBC 3.68 L (4.10-5.20) X 10*6/uL Hgb 8.8 L (12.0-15.0) g/dL Hct 31.1 L (37.2-46.3) % MCH 23.9 L (27.0-32.0) pg MCHC 28.3 L (32.0-37.0) g/dL RDW 19.9 H (11.5-14.5) % Plt Count 452 H (140-440) X 10*3/uL Immature Gran # 0.32 H (0.00-0.04) X 10*3/uL Neutrophils # 12.74 H (1.80-7.70) X 10*3/uL Lymphocytes # 0.50 L (0.90-5.00) X 10*3/uL Monocytes # 1.41 H (0.20-1.00) X 10*3/uL BUN 39 H (7-17) mg/dL Creatinine 1.64 H (0.52-1.04) mg/dL Glucose 125 H (74-99) mg/dL Calcium 7.9 L (8.4-10.2) mg/dL Phosphorus 4.9 H (2.5-4.5) mg/dL Magnesium 2.5 H (1.6-2.3) mg/dL Microbiology - Last 24 Hours (Table) 02/08/22 12:05 Anaerobic Culture - Preliminary Aspirate 02/08/22 12:05 Gram Stain - Preliminary Aspirate Body Fluid Culture - Preliminary Assessment and Plan Assessment: Adenocarcinoma with carcinomatosis with unknown primary Newly diagnosed with poorly differentiated adenocarcinoma. Differential include ovarian/uterine, upper GI, pancreatobiliary versus mullerian primary. Acetic fluid positive for malignancy cells also. Partial small bowel obstruction on admission status post lysis of additions. Dysphagia status post EGD and esophageal stricture dilation Acute kidney injury Hypertension Hypothyroidism History of IVC filter placement Prior gastric bypass surgery Appendectomy, cholecystectomy, hernia repair and hysterectomy. DVT prophylaxis on heparin subcu. Plan: Patient will be continued on antibiotics in the form of Zosyn. Continued pain management. Work-up including liver MRI, CT abdomen and pelvis, aspiration of the peritoneal fluid. Tumor markers nonspecific. Due patient underwent unknown primary and possible differential includes pancreatobiliary versus mullerian origin. Patient will need to be evaluated by [facility] oncology and is in process of transferring to [facility]. Continue with TPN. Discussed with the patient in detail. Prognosis is poor at this time. Time with Patient: Greater than 30
[2022-02-12 12:01] LABS: Glucose,Whole Blood 141 mg/dL (70-110)
[2022-02-12] MEDS ORDERED: FUROSEMIDE 10 MG/ML 2 ML VIAL IV ONE (12:15)
--- NOTE | 2022-02-12 12:43 | P.PN ---
Subjective Progress Note Date: 02/12/22 Principal diagnosis: Adenocarconoma Patient appears much more comfortable the past two days,although states not improved. Long discussion with son and daughter apparently prior to admission patient had DVT in LLE and was started on Xarelto, however this was stopped as apparently she felt that is what was making her nauseated. Will follow-up with repeat BLE Doppler. Objective - Vital Signs Vital signs: Vital Signs Temp 98.3 F 02/12/22 04:30 Pulse 82 02/12/22 08:03 Resp 18 02/12/22 04:30 BP 116/69 02/12/22 04:30 Pulse Ox 96 02/12/22 07:49 FiO2 21 02/09/22 20:12 Intake & Output 02/11/22 02/12/22 02/12/22 18:59 06:59 18:59 Intake Total 1028.3 118 Balance 1028.3 118 Weight 104.326 kg Intake: Intake, IV Titration 1028.3 Amount Sodium Acetate 30 meq 1028.3 Potassium Acetate 20 meq Calcium Chloride 0.33 gm In Amino Acids 5 %/ Dextrose 20 % 1,000 ml @ 80 mls/hr IV .BY DURATION [facility] Rx#:[id number] Oral 118 Other: Voiding Method Toilet Toilet # Voids 1 - Exam - Constitutional General appearance: Present: cooperative, no acute distress, obese - EENT Eyes: Present: anicteric sclerae, EOMI ENT: Present: hearing grossly normal - Respiratory Details: resp even and unlabored - Gastrointestinal General gastrointestinal: Present: decreased bowel sounds (distant), soft, tenderness palpable RUQ Increased distention - Neurologic Neurologic: Present: CNII-XII intact - Musculoskeletal Musculoskeletal: Present: generalized weakness - Psychiatric Psychiatric: Present: A&O x's 3, appropriate affect, intact judgment & insight - Labs CBC & Chem 7: 02/12/22 06:18 02/12/22 06:18 Labs: Abnormal Lab Results - Last 24 Hours (Table) 02/12/22 02/12/22 02/12/22 Range/Units 01:27 06:18 06:18 WBC 14.1 H (3.8-10.6) k/uL RBC 3.58 L (3.80-5.40) m/uL Hgb 9.3 L (11.4-16.0) gm/dL Hct 31.6 L (34.0-46.0) % MCHC 29.4 L (31.0-37.0) g/dL RDW 18.6 H (11.5-15.5) % Neutrophils # 12.2 H (1.3-7.7) k/uL Lymphocytes # 0.6 L (1.0-4.8) k/uL Sodium 136 L (137-145) mmol/L BUN 40 H (7-17) mg/dL Creatinine 1.72 H (0.52-1.04) mg/dL Glucose 113 H (74-99) mg/dL POC Glucose (mg/dL) 150 H (70-110) mg/dL Calcium 7.8 L (8.4-10.2) mg/dL Magnesium 2.4 H (1.6-2.3) mg/dL 02/12/22 02/12/22 Range/Units 06:46 11:57 WBC (3.8-10.6) k/uL RBC (3.80-5.40) m/uL Hgb (11.4-16.0) gm/dL Hct (34.0-46.0) % MCHC (31.0-37.0) g/dL RDW (11.5-15.5) % Neutrophils # (1.3-7.7) k/uL Lymphocytes # (1.0-4.8) k/uL Sodium (137-145) mmol/L BUN (7-17) mg/dL Creatinine (0.52-1.04) mg/dL Glucose (74-99) mg/dL POC Glucose (mg/dL) 150 H 141 H (70-110) mg/dL Calcium (8.4-10.2) mg/dL Magnesium (1.6-2.3) mg/dL Microbiology - Last 24 Hours (Table) 02/08/22 12:05 Gram Stain - Preliminary Aspirate Body Fluid Culture - Preliminary Assessment and Plan (1) Partial small bowel obstruction Current Visit: Yes Status: Acute Code(s): K56.600 - PARTIAL INTESTINAL OBSTRUCTION, UNSPECIFIED TO CAUSE SNOMED Code(s): 217693635 (2) Adenocarcinoma carcinomatosis Narrative/Plan: - Unknown primary origina New diagnosis of poorly differentiated adenocarcinoma, Differentials include Ovarian/Uterine, upper GI, pancreaticobiliary versus mullerian primary. Ascitic fluid + for same. Unable to tolerate Prep due to persistent nausea and pain Changes to pain and nausea medications have im[roved her comfort Awaiting transfer Dr. cMcoy has explained in detail picture and need of further diagnostics EGD planned by General surgery Picc line TPN COntinue Ativan, Fentanyl and dilaudid and bowel regimen Current Visit: Yes Status: Acute Code(s): C80.0 - DISSEMINATED MALIGNANT NEOPLASM, UNSPECIFIED SNOMED Code(s): 401600382 (3) Neoplasm related pain Narrative/Plan: Fentanyl working well Dilaudid if needed been stable Bowel regimen continued Current Visit: Yes Status: Acute Code(s): G89.3 - NEOPLASM RELATED PAIN (ACUTE) (CHRONIC) SNOMED Code(s): 61578432443139 (4) Nausea and vomiting Narrative/Plan: Improved with ATC ondansetran and lorazepam Current Visit: Yes Status: Acute Code(s): R11.2 - NAUSEA WITH VOMITING, UNSPECIFIED SNOMED Code(s): 48559025 Plan: Assessment and Plan (1) Adenocarcinoma carcinomatosis Narrative/Plan: at this time the patient has carcinomatosis from adenocarcinoma of unknown primary. - She is in a quite a bit of pain and have added a low dose fentanyl patch for her with cowel regimen Differential diagnoses for primary site include following, and tentatively, as well as ovarian - Patient's recent EGD has been negative. Her MRI results were discussed in detail with her yesterday by Dr. Mccoy. They show a possible abnormality in the common bile duct, either artifact, versus possible stricture. The patient does have a prior history of urinary obstruction requiring surgery. Therefore possible to findings, versus artifact, versus malignant stricture are still in the differential - . This was discussed in detail with the patient. gastroenterology was consulted to evaluate the MRI. They feel ERCP or EUS is not necessary at this time as this is likely scar tissue from prior procedure, in speaking with GI BACTERIOLOGIST SOIL today. - colonoscopy is still pending adequately prep Current Visit: Yes Status: Acute Code(s): C80.0 - DISSEMINATED MALIGNANT NEOPLASM, UNSPECIFIED SNOMED Code(s): 912868197 Will transfer to [facility] oncology Increase fentanyl 50mcg Add ativan PRN Nausea Picc line per Surgery for TPN PT/OT Awaiting bed at [facility]. Status post EGD and dilation Long discussion with patient and family >45 minutes Increased fentanyl hycet prn
--- NOTE | 2022-02-12 13:32 | P.PN ---
Subjective Patient is seen for follow-up for acute kidney injury. Patient is maintained on IV fluids. Renal function eller had improved serum creatinine down to about 1.2-1.3 however over the last couple of days serum creatinine has been rising again. Currently stable at about 1.6 mg/dL. No urine retention Patient has been started on TPN. Complaining of increased lower extremity swelling. No shortness of breath. Blood pressure staying on the lower side. Systolic around 106-117. Patient had been low with systolic in the 90s previously. She is maintained on midodrine. Bladder scan shows no evidence of urine retention. Objective - Vital Signs Vital signs: Vital Signs Temp 98.1 F 02/12/22 12:55 Pulse 79 02/12/22 12:55 Resp 14 02/12/22 12:55 BP 106/65 02/12/22 12:55 Pulse Ox 98 02/12/22 12:55 FiO2 21 02/09/22 20:12 Intake & Output 02/11/22 02/12/22 02/12/22 18:59 06:59 18:59 Intake Total 1028.3 118 Output Total 74 Balance 1028.3 44 Weight 104.326 kg Intake: Intake, IV Titration 1028.3 Amount Sodium Acetate 30 meq 1028.3 Potassium Acetate 20 meq Calcium Chloride 0.33 gm In Amino Acids 5 %/ Dextrose 20 % 1,000 ml @ 80 mls/hr IV .BY DURATION [facility] Rx#:[id number] Oral 118 Output: Post Void Residual 74 Other: Voiding Method Toilet Toilet # Voids 1 1 - Exam Awake, comfortable, no acute distress Abdomen is soft tenderness noted in the upper abdomen Examination lower extremities shows edema 2+ bilaterally PHLEBOTOMIST exam is grossly intact - Labs CBC & Chem 7: 02/12/22 06:18 02/12/22 06:18 Labs: Abnormal Lab Results - Last 24 Hours (Table) 02/12/22 02/12/22 02/12/22 Range/Units 01:27 06:18 06:18 WBC 14.1 H (3.8-10.6) k/uL RBC 3.58 L (3.80-5.40) m/uL Hgb 9.3 L (11.4-16.0) gm/dL Hct 31.6 L (34.0-46.0) % MCHC 29.4 L (31.0-37.0) g/dL RDW 18.6 H (11.5-15.5) % Neutrophils # 12.2 H (1.3-7.7) k/uL Lymphocytes # 0.6 L (1.0-4.8) k/uL Sodium 136 L (137-145) mmol/L BUN 40 H (7-17) mg/dL Creatinine 1.72 H (0.52-1.04) mg/dL Glucose 113 H (74-99) mg/dL POC Glucose (mg/dL) 150 H (70-110) mg/dL Calcium 7.8 L (8.4-10.2) mg/dL Magnesium 2.4 H (1.6-2.3) mg/dL 02/12/22 02/12/22 Range/Units 06:46 11:57 WBC (3.8-10.6) k/uL RBC (3.80-5.40) m/uL Hgb (11.4-16.0) gm/dL Hct (34.0-46.0) % MCHC (31.0-37.0) g/dL RDW (11.5-15.5) % Neutrophils # (1.3-7.7) k/uL Lymphocytes # (1.0-4.8) k/uL Sodium (137-145) mmol/L BUN (7-17) mg/dL Creatinine (0.52-1.04) mg/dL Glucose (74-99) mg/dL POC Glucose (mg/dL) 150 H 141 H (70-110) mg/dL Calcium (8.4-10.2) mg/dL Magnesium (1.6-2.3) mg/dL Microbiology - Last 24 Hours (Table) 02/08/22 12:05 Gram Stain - Preliminary Aspirate Body Fluid Culture - Preliminary Assessment and Plan Assessment: 1. Acute kidney injury secondary to ATN from hypotension. Renal function had improved but worse again but staying stable with creatinine 1.6-1.7 now. Blood pressure had been low early this morning. No urine retention. CT of the abdomen showed no evidence of hydronephrosis. UA is quite benign from 01/26/2022. UA shows trace protein. Right kidney is atrophic 2. 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 History of gastric bypass 4. Anemia with iron deficiency status post IV iron 5. Fluid collection noted in the pelvis area on CT scan, being followed by surgery Plan: Increase midodrine Maintained daily Lasix Symptomatic treatment for nausea Repeat UA
[2022-02-12] MEDS: LORazepam 2 MG/ML INJ IV PRN ×2 (14:08→20:42)
--- NOTE | 2022-02-12 15:24 | P.PN ---
Subjective Progress Note Date: 02/12/22 CHIEF COMPLAINT: Abdominal pain due to carcinomatosis HISTORY OF PRESENT ILLNESS: The patient is a 76-year-old female recently discharged from the hospital over 3 or 4 weeks ago for multiple complaints i ncluding atypical chest pain, dysphagia and abdominal pain. Multiple diagnostic studies were performed at that time and negative for cardiac source. Patient returned to the hospital complaining of moderate left lower quadrant abdominal pain with history of gastric bypass and bowel obstruction. Diagnostic laparoscopy was performed for adhesions. She is status post diagnostic laparoscopy with omental biopsy and lysis of adhesions 01/27/2022. 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 Multiple consultants were following including oncology, gastroenterology, medicine, nephrology, infectious disease. GI team was following excluding pancreatic biliary source. Attempted colonoscopy on several occasions performed however patient unable to tolerate bowel prep or enemas. Upper endoscopy performed without source. Additionally, intraoperative findings of moderate disease within the pelvis were reviewed and suspicious for ovarian carcinoma. Patient reports previous hysterectomy however bilateral ovaries present. Last cervical screening at the age of 67. Patient's [id number] and son Demetrio at bedside. Patient complains of chronic nausea including chronic abdominal pain. Multiple adjustments of medications were performed including addition of Reglan, Zofran, scopolamine patches. Pain medication with fentanyl patches, morphine, Dilaudid also placed. Patient placed on TPN due to moderate protein malnutrition and inadequate oral intake due to chronic nausea. She is having bowel movements. She has PICC line placed 02/10/2022. She had drainage of right upper quadrant seroma due to malignant ascites 02/08/2022 now discontinued on 02/10/2022. She is on Zosyn for leukocytosis including antifungal. ROS: No fevers or chills. No new chest pain. Having bowel movements. PHYSICAL EXAM: VITAL SIGNS: Reviewed CONSTITUTIONAL: Well developed and in no acute distress. EYES: Conjuctivae without sclera icterus. Extraocular movements grossly intact. HEAD, EARS, NOSE, THROAT: Head is atraumatic, normocephalic. Hears conversational speech. No nasal drainage. RESPIRATORY: Non-labored respirations and equal bilateral excursions. CARDIOVASCULAR: 2+ radial pulses. ABDOMEN: Obese, protuberant. Decrease swelling of seroma of the right upper quadrant. MUSCULOSKELETAL: No clubbing. No cyanosis. SKIN: Well perfused. Echymosis bilateral upper extremity from prior midlines. NEUROLOGIC: Cranial nerves II through XII grossly intact. No focal or lateralizing signs. PSYCH: Alert and oriented to person, place and time. CLINICAL LABS: Reviewed. WBC is down from 16,000 to over 14,000. Creatinine elevated at 1.76, nephrology following. STUDIES: Chest x-ray independently reviewed demonstrating no free air. This is my independent interpretation. REPORT: Chest x-ray demonstrates only vascular congestion. ASSESSMENT: 1. 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 History of gastric bypass 3. Peritoneal adhesions 4. Chronic abdominal pain with malignant ascites 5. 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 Ileus 7. Thrombocytosis 8. Leukocytosis 9. Carcinomatosis 10. Moderate to severe protein malnutrition requiring TPN 11. Intractable nausea and vomiting 12. Intractable abdominal pain PLAN: 1. At this time, pending transfer to [facility] due to complexity of care and need for gynecology oncology assessment due to progressive disease. 2. I personally spoke with nephrology for management of renal disease. Diuretics being placed and adjusted. 3. I personally spoke with oncology regarding pain management. Fentanyl patch been increased per oncology. 4. Patient on scheduled antinausea medications including scopolamine, Reglan, Zofran. 5. Patient could not tolerate prep or enemas for colonoscopy. Alternatives including Cologaurd may be of benefit. 6. Recommend gynecology oncology consultation for ovarian carcinoma unavailable at this institution. 7. Antibiotic management per infectious disease. Objective - Vital Signs Vital signs: Vital Signs Temp 98.3 F 02/12/22 04:30 Pulse 82 02/12/22 08:03 Resp 18 02/12/22 04:30 BP 116/69 02/12/22 04:30 Pulse Ox 96 02/12/22 07:49 FiO2 21 02/09/22 20:12 Intake & Output 02/11/22 02/12/22 02/12/22 18:59 06:59 18:59 Intake Total 1028.3 118 Balance 1028.3 118 Weight 104.326 kg Intake: Intake, IV Titration 1028.3 Amount Sodium Acetate 30 meq 1028.3 Potassium Acetate 20 meq Calcium Chloride 0.33 gm In Amino Acids 5 %/ Dextrose 20 % 1,000 ml @ 80 mls/hr IV .BY DURATION [facility] Rx#:[id number] Oral 118 Other: Voiding Method Toilet Toilet # Voids 1 - Labs CBC & Chem 7: 02/12/22 06:18 02/12/22 06:18 Labs: Abnormal Lab Results - Last 24 Hours (Table) 02/12/22 02/12/22 02/12/22 Range/Units 01:27 06:18 06:46 Sodium 136 L (137-145) mmol/L BUN 40 H (7-17) mg/dL Creatinine 1.72 H (0.52-1.04) mg/dL Glucose 113 H (74-99) mg/dL POC Glucose (mg/dL) 150 H 150 H (70-110) mg/dL Calcium 7.8 L (8.4-10.2) mg/dL Magnesium 2.4 H (1.6-2.3) mg/dL Microbiology - Last 24 Hours (Table) 02/08/22 12:05 Gram Stain - Preliminary Aspirate Body Fluid Culture - Preliminary
--- NOTE | 2022-02-12 15:27 | P.PN ---
Progress Note - Text Progress Note Date: 02/12/22 Notified by Brandin for that bed now available. I personally spoke to the transfer team including Dr. Kate regarding transferring patient with updates including need for higher level of care due to complex medical condition with intractable nausea and vomiting, chronic abdominal pain due to carcinomatosis of likely ovarian source. Gynecology oncology oncology management requested, not available at present institution. Transfer accepted. Requested pathology slides and films already prepared.
--- NOTE | 2022-02-12 15:38 | P.DS ---
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 Do you want consulting provider notified?: Yes, Notify in am 02/03/22 10:22 Consult Physician Routine Consulting Provider: Danyelle Doll Consult Reason/Comments: Acute renal insufficiency Do you want consulting provider notified?: Yes 02/09/22 18:45 Consult Physician Routine Consulting Provider: Chun Mina Consult Reason/Comments: Antibiotic management Do you want consulting provider notified?: Yes, Notify in am 02/10/22 00:28 Consult Physician Routine Consulting Provider: Brice Elam Consult Reason/Comments: Vtach Do you want consulting provider notified?: Yes, Notify in am 02/10/22 01:30 Consult Physician Routine Consulting Provider: Barb Strauss Consult Reason/Comments: Medical management Do you want consulting provider notified?: Yes 02/11/22 04:24 Consult Physician Routine Consulting Provider: Chun Mina Consult Reason/Comments: Antibiotic management Do you want consulting provider notified?: Yes, Notify in am Primary care physician: Lukas Graves Hospital Course: POSTOPERATIVE DIAGNOSES: 1. Left lower quadrant abdominal pain 2. History of multiple abdominal surgeries 3. History of gastric bypass for morbid obesity 4. Morbid obesity due to excess calories, BMI 35.0 5. Hypothyroidism 6. Hypertensive heart disease 7. Asthma 8. History of IVC filter 9. Chronic anemia 10. Abdominal ascites 11. Abdominal adhesions left lower quadrant 12. Carcinomatosis of the abdomen, poorly differentiated adenocarcinoma CHIEF COMPLAINT: Abdominal pain due to carcinomatosis HISTORY OF PRESENT ILLNESS: The patient is a 76-year-old female recently discharged from the hospital over 3 or 4 weeks ago for multiple complaints including atypical chest pain, dysphagia and abdominal pain. Multiple diagnostic studies were performed at that time and negative for cardiac source. Patient returned to the hospital complaining of moderate left lower quadrant abdominal pain with history of gastric bypass and bowel obstruction. Diagnostic laparoscopy was performed for adhesions. She is status post diagnostic laparoscopy with omental biopsy and lysis of adhesions 01/27/2022. 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 Multiple consultants were following including oncology, gastroenterology, medicine, nephrology, infectious disease. GI team was following excluding pancreatic biliary source. Attempted colonoscopy on several occasions performed however patient unable to tolerate bowel prep or enemas. Upper endoscopy performed without source. Additionally, intraoperative findings of moderate disease within the pelvis were reviewed and suspicious for ovarian carcinoma. Patient reports previous hysterectomy however bilateral ovaries present. Last cervical screening at the age of 67. Patient's [id number] and son Demetrio at bedside. Patient complains of chronic nausea including chronic abdominal pain. Multiple adjustments of medications were performed including addition of Reglan, Zofran, scopolamine patches. Pain medication with fentanyl patches, morphine, Dilaudid also placed. Patient placed on TPN due to moderate protein malnutrition and inadequate oral intake due to chronic nausea. She is having bowel movements. She has PICC line placed 02/10/2022. She had drainage of right upper quadrant seroma due to malignant ascites 02/08/2022 now discontinued on 02/10/2022. She is on Zosyn for leukocytosis including antifungal. ROS: No fevers or chills. No new chest pain. Having bowel movements. PHYSICAL EXAM: VITAL SIGNS: Reviewed CONSTITUTIONAL: Well developed and in no acute distress. EYES: Conjuctivae without sclera icterus. Extraocular movements grossly intact. HEAD, EARS, NOSE, THROAT: Head is atraumatic, normocephalic. Hears conversational speech. No nasal drainage. RESPIRATORY: Non-labored respirations and equal bilateral excursions. CARDIOVASCULAR: 2+ radial pulses. ABDOMEN: Obese, protuberant. Decrease swelling of seroma of the right upper quadrant. MUSCULOSKELETAL: No clubbing. No cyanosis. SKIN: Well perfused. Echymosis bilateral upper extremity from prior midlines. NEUROLOGIC: Cranial nerves II through XII grossly intact. No focal or lateralizing signs. PSYCH: Alert and oriented to person, place and time. CLINICAL LABS: Reviewed. WBC is down from 16,000 to over 14,000. Creatinine elevated at 1.76, nephrology following. STUDIES: Chest x-ray independently reviewed demonstrating no free air. This is my independent interpretation. REPORT: Chest x-ray demonstrates only vascular congestion. ASSESSMENT: 1. 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 History of gastric bypass 3. Peritoneal adhesions 4. Chronic abdominal pain with malignant ascites 5. 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 Ileus 7. Thrombocytosis 8. Leukocytosis 9. Carcinomatosis 10. Moderate to severe protein malnutrition requiring TPN 11. Intractable nausea and vomiting 12. Intractable abdominal pain PLAN: 1. At this time, pending transfer to [facility] due to complexity of care and n eed for gynecology oncology assessment due to progressive disease. 2. I personally spoke with nephrology for management of renal disease. Diuretics being placed and adjusted. 3. I personally spoke with oncology regarding pain management. Fentanyl patch been increased per oncology. 4. Patient on scheduled antinausea medications including scopolamine, Reglan, Zofran. 5. Patient could not tolerate prep or enemas for colonoscopy. Alternatives including Cologaurd may be of benefit. 6. Recommend gynecology oncology consultation for ovarian carcinoma unavailable at this institution. 7. Antibiotic management per infectious disease. 4. Transfer to higher level of care to [facility] initiated due to medical necessity. Transfer with [facility] performed 02/10/2022 at 1020 Update performed with [facility] 02/12/22 at [address] Sp[address] Kate with updates. Procedures: OPERATION: 1. Robotic-assisted da Deangelo Xi laparoscopic with lysis of adhesions 2. Omental excisional biopsy for pseudomyxoma peritonei 3. Aaspiration of peritoneal fluid/ascites for cell cytology ESTIMATED BLOOD LOSS: 5 mL. SPECIMENS REMOVED: (Excisional biopsy of the omentum, ascites for cell cytology) COMPLICATIONS: None. Condition: stable Disposition: floor Operative Findings: 1. Abdominal ascites over 1000 mL removed 2. Carcinomatosis involving the greater omentum to the abdominal wall adherent with focal adhesion of small bowel to left lower quadrant and location of patient's pain 3. No gross metastatic lesions of the liver 4. Excision of adhesion of the left lower quadrant abdominal wall releasing small bowel performed Patient Condition at Discharge: Stable Patient Condition at Discharge: Stable Plan - Discharge Summary New Discharge Prescriptions: New Midodrine [ProAmatine] 5 mg PO AC-BID tab Simethicone [Gas-X] 125 mg PO AC-TID PRN #20 capsule PRN Reason: Pain Acetaminophen Tab [Tylenol Tab] 1,000 mg PO Q6HR PRN #30 tablet PRN Reason: Pain Piperacillin-Tazobactam [Zosyn] 3.375 gm IVPB Q8H each Continue Levothyroxine Sodium [Synthroid] 150 mcg PO DAILY Cyanocobalamin [Vitamin B-12 Injection] 1,000 mcg SQ QMONTHLY Meclizine HCl 25 mg PO BID PRN PRN Reason: NAUSEA/DIZZINESS Ergocalciferol (Vitamin D2) [Drisdol (50,000 Iu)] 1,250 mcg PO MO Albuterol Sulfate [Ventolin HFA] 2 puff INHALATION RT-Q6H PRN PRN Reason: Shortness Of Breath Pantoprazole [Protonix] 40 mg PO DAILY hydroCHLOROthiazide [Hydrodiuril] 12.5 mg PO DAILY cloNIDine HCL [Catapres] 0.1 mg PO BID Naltrexone HCl [Revia] 50 mg PO DAILY Folic Acid 1 mg PO DAILY Acetaminophen Tab [Tylenol] 650 mg PO Q6HR PRN tab PRN Reason: Mild Pain Or Fever > 100.5 Discharge Medication List Albuterol Sulfate [Ventolin HFA] 2 puff INHALATION RT-Q6H PRN 01/21/22 [History] Cyanocobalamin [Vitamin B-12 Injection] 1,000 mcg SQ QMONTHLY 01/21/22 [History] Ergocalciferol (Vitamin D2) [Drisdol (50,000 Iu)] 1,250 mcg PO MO 01/21/22 [History] Folic Acid 1 mg PO DAILY 01/21/22 [History] Levothyroxine Sodium [Synthroid] 150 mcg PO DAILY 01/21/22 [History] Meclizine HCl 25 mg PO BID PRN 01/21/22 [History] Naltrexone HCl [Revia] 50 mg PO DAILY 01/21/22 [History] Pantoprazole [Protonix] 40 mg PO DAILY 01/21/22 [History] cloNIDine HCL [Catapres] 0.1 mg PO BID 01/21/22 [History] hydroCHLOROthiazide [Hydrodiuril] 12.5 mg PO DAILY 01/21/22 [History] Acetaminophen Tab [Tylenol] 650 mg PO Q6HR PRN tab 01/24/22 [Rx] Acetaminophen Tab [Tylenol Tab] 1,000 mg PO Q6HR PRN #30 tablet 01/28/22 [Rx] Simethicone [Gas-X] 125 mg PO AC-TID PRN #20 capsule 01/28/22 [Rx] Midodrine [ProAmatine] 5 mg PO AC-BID tab 02/10/22 [Rx] Piperacillin-Tazobactam [Zosyn] 3.375 gm IVPB Q8H each 02/10/22 [Rx] Follow up Appointment(s)/Referral(s): [facility] [NON-STAFF] - 1-2 Days Lukas Graves MD [Primary Care Provider] - 1-2 days Minal Dumont MD [STAFF PHYSICIAN] - 02/15/22 [facility] [NON-STAFF] - As Needed (Contact for enrollment questions for adult day program.) Patient Instructions/Handouts: Abdominal Binder (DC), Lysis of Abdominal Adhesions (DC) Activity/Diet/Wound Care/Special Instructions: Using antibacterial soap. No lifting over 4 pounds 4 weeks, February 26December shower. No bathtub soaks for 2 weeks, February 10 Wear abdominal binder daily for comfort except for showering. Use ice along incisions for today to prevent swelling. Take tylenol simethicone scheduled for 3 days for best pain relief Discharge/Stand Alone Forms: Who Do I Call?, Help In The Home Discharge Disposition: DISCH/TRANS TO A [facility]
[2022-02-12 16:14] LABS: Appearance,Urine Clear (Clear); Bilirubin,Urine Negative (Negative); Blood,Urine Negative (Negative); Color,Urine Yellow; Glucose,Urine (UA) Negative (Negative); Ketones,Urine Negative (Negative); Leukocyte Esterase,Urine Negative (Negative); Nitrite,Urine Negative (Negative); Protein,Urine Negative (Negative); Specific Gravity,Urine 1.014 (1.001-1.035); Urobilinogen,Urine <2.0 mg/dL (<2.0)
[2022-02-12] MEDS ORDERED: DEXTROSE 5%-0.45% NACL 1,000 ML IV SCH (17:45)
[2022-02-12 17:55] LABS: Glucose,Whole Blood 131 mg/dL (70-110)
--- NOTE | 2022-02-12 18:37 | US ---
EXAMINATION TYPE: US venous doppler duplex LE DATE OF EXAM: 02/12/2022 6:15 PM COMPARISON: US 2021 CLINICAL HISTORY: R/O DVT. Exam done portable SIDE PERFORMED: Bilateral TECHNIQUE: The lower extremity deep venous system is examined utilizing real time linear array sonog pipo with graded compression, doppler sonography and color-flow sonography. VESSELS IMAGED: Common Femoral Vein Deep Femoral Vein Greater Saphenous Vein * Femoral Vein Popliteal Vein Small Saphenous Vein * Proximal Calf Veins (* superficial vessels) Difficult and limited study due to patient body habitus Right Leg: Appears negative for DVT Left Leg: Appears negative for DVT IMPRESSION: No evidence of deep vein thrombosis in both legs.
[2022-02-12] MEDS ORDERED: 1: MVI, ADULT NO.4 WITH VIT K 10 ML, TRACE (CONC-1ML/DOSE) 1 ML, SODIUM PHOSPHATE 9 MMOL IV SCH ×7 (19:30)
[2022-02-12 20:05] VITALS: BP 117/73; PULSE 80; RESP 18; TEMP 98.2
--- NOTE | 2022-02-12 22:05 | P.PN ---
Subjective Progress Note Date: 02/12/22 Principal diagnosis: Leukocytosis Patient is a 76-year-old to female presented to hospital on 01/26/2022 for abdominal pain in this patient was status post lysis of adhesion omental biopsy with evidence of poorly differentiated adenocarcinoma subsequently did have a CT of the abdominal pelvis with evidence of moderate ascites status post CT-guided drainage which was mostly blood stained and the patient was noticed to have worsening white count that prompted this infection disease consultation. on today's evaluation that is 02/12/2022, the patient remains to be afebrile, the patient is complaining of abdominal pain , mostly lower abdominal and did have an episode of vomiting and no diarrhea no chest pain shortness of breath or cough Objective - Vital Signs Vital signs: Vital Signs Temp 98.3 F 02/12/22 04:30 Pulse 82 02/12/22 08:03 Resp 18 02/12/22 04:30 BP 116/69 02/12/22 04:30 Pulse Ox 96 02/12/22 07:49 FiO2 21 02/09/22 20:12 Intake & Output 02/11/22 02/12/22 02/12/22 18:59 06:59 18:59 Intake Total 1028.3 118 Balance 1028.3 118 Weight 104.326 kg Intake: Intake, IV Titration 1028.3 Amount Sodium Acetate 30 meq 1028.3 Potassium Acetate 20 meq Calcium Chloride 0.33 gm In Amino Acids 5 %/ Dextrose 20 % 1,000 ml @ 80 mls/hr IV .BY DURATION [facility] Rx#:[id number] Oral 118 Other: Voiding Method Toilet Toilet # Voids 1 - Exam GENERAL DESCRIPTION: An elderly female lying in bed in no distress RESPIRATORY SYSTEM: Unlabored breathing , decreased breath sounds at bases HEART: S1 S2 regular rate and rhythm , ABDOMEN: Soft , mild tenderness EXTREMITIES: No edema feet - Labs CBC & Chem 7: 02/12/22 06:18 02/12/22 06:18 Labs: Abnormal Lab Results - Last 24 Hours (Table) 02/12/22 02/12/22 02/12/22 Range/Units 01:27 06:18 06:18 WBC 14.1 H (3.8-10.6) k/uL RBC 3.58 L (3.80-5.40) m/uL Hgb 9.3 L (11.4-16.0) gm/dL Hct 31.6 L (34.0-46.0) % MCHC 29.4 L (31.0-37.0) g/dL RDW 18.6 H (11.5-15.5) % Neutrophils # 12.2 H (1.3-7.7) k/uL Lymphocytes # 0.6 L (1.0-4.8) k/uL Sodium 136 L (137-145) mmol/L BUN 40 H (7-17) mg/dL Creatinine 1.72 H (0.52-1.04) mg/dL Glucose 113 H (74-99) mg/dL POC Glucose (mg/dL) 150 H (70-110) mg/dL Calcium 7.8 L (8.4-10.2) mg/dL Magnesium 2.4 H (1.6-2.3) mg/dL 02/12/22 Range/Units 06:46 WBC (3.8-10.6) k/uL RBC (3.80-5.40) m/uL Hgb (11.4-16.0) gm/dL Hct (34.0-46.0) % MCHC (31.0-37.0) g/dL RDW (11.5-15.5) % Neutrophils # (1.3-7.7) k/uL Lymphocytes # (1.0-4.8) k/uL Sodium (137-145) mmol/L BUN (7-17) mg/dL Creatinine (0.52-1.04) mg/dL Glucose (74-99) mg/dL POC Glucose (mg/dL) 150 H (70-110) mg/dL Calcium (8.4-10.2) mg/dL Magnesium (1.6-2.3) mg/dL Microbiology - Last 24 Hours (Table) 02/08/22 12:05 Gram Stain - Preliminary Aspirate Body Fluid Culture - Preliminary Assessment and Plan (1) Leukocytosis Current Visit: Yes Status: Acute Code(s): D72.829 - ELEVATED WHITE BLOOD CELL COUNT, UNSPECIFIED SNOMED Code(s): 502729076 Plan: 1patient with a leukocytosis which is multifactorial in this patient who did have a poorly differentiated adenocarcinoma with initial surgery on 01/27/2022 with lysis of adhesion and some resection of the omentum and did have a ultrasound-guided drainage of the fluid on 02/08/2022 which was mostly bloody with the cultures so far negative 2patient is afebrile, white count is trending down, patient to continue with Zosyn and Eraxis, monitor clinical course closely Time with Patient: Less than 30
[2022-02-13] MEDS ORDERED: FUROSEMIDE 10 MG/ML 2 ML VIAL IV SCH (09:00)
[2022-02-13] MEDS ORDERED: METOCLOPRAMIDE 5 MG/ML 2 ML VIAL IVP SCH (12:00)
== END 2022-02-12 21:30 | disposition short-term general hospital (02) | DRG 335 ==
LOC: EC 14:07 → 4SSUR 17:40 → 5NMEDONC 02-10 01:11
PROVIDERS: ADMIT Surgery Plastic and Reconstructive Surgery; ATTEND Surgery Plastic and Reconstructive Surgery
DX: C78.6 Secondary malignant neoplasm of retroperitoneum and peritoneum (principal); N17.0 Acute kidney failure with tubular necrosis; R18.0 Malignant ascites; K90.9 Intestinal malabsorption, unspecified; E44.0 Moderate protein-calorie malnutrition; K56.51 Intestinal adhesions [bands], with partial obstruction; J90 Pleural effusion, not elsewhere classified; K22.10 Ulcer of esophagus without bleeding; E87.1 Hypo-osmolality and hyponatremia; D63.8 Anemia in other chronic diseases classified elsewhere; I95.9 Hypotension, unspecified; K22.2 Esophageal obstruction; C80.1 Malignant (primary) neoplasm, unspecified; I11.9 Hypertensive heart disease without heart failure; K56.41 Fecal impaction; E66.01 Morbid (severe) obesity due to excess calories; Z20.822 Contact with and (suspected) exposure to COVID-19; Z68.35 Body mass index [BMI] 35.0-35.9, adult; K74.60 Unspecified cirrhosis of liver; D75.839 Thrombocytosis, unspecified; D50.9 Iron deficiency anemia, unspecified; G89.3 Neoplasm related pain (acute) (chronic); J45.909 Unspecified asthma, uncomplicated; K52.9 Noninfective gastroenteritis and colitis, unspecified; K21.9 Gastro-esophageal reflux disease without esophagitis; K44.9 Diaphragmatic hernia without obstruction or gangrene; E03.9 Hypothyroidism, unspecified; F41.9 Anxiety disorder, unspecified; N26.1 Atrophy of kidney (terminal); M79.81 Nontraumatic hematoma of soft tissue; R31.9 Hematuria, unspecified; R35.0 Frequency of micturition; R30.0 Dysuria; M79.7 Fibromyalgia; T50.2X5A Adverse effect of carbonic-anhydrase inhibitors, benzothiadiazides and other diuretics, initial encounter; Z53.8 Procedure and treatment not carried out for other reasons; Z79.890 Hormone replacement therapy; Z79.899 Other long term (current) drug therapy; Z86.718 Personal history of other venous thrombosis and embolism; Z90.49 Acquired absence of other specified parts of digestive tract; Z87.19 Personal history of other diseases of the digestive system; Z90.710 Acquired absence of both cervix and uterus; Z87.42 Personal history of other diseases of the female genital tract; Z95.828 Presence of other vascular implants and grafts; Z98.84 Bariatric surgery status; Z98.890 Other specified postprocedural states; Z71.3 Dietary counseling and surveillance; Z88.8 Allergy status to other drugs, medicaments and biological substances; Z91.048 Other nonmedicinal substance allergy status
CPT/HCPCS: 36410; 36415; 36573; 43249; 45309; 49406; 71045; 71250; 74018; 74019; 74176; 74183; 76770; 76937; 76942; 80048; 80053; 81001; 81003; 82150; 82306; 82330; 82378; 82607; 82728; 82747; 83540; 83550; 83615; 83690; 83735; 84100; 84478; 85025; 85027; 85610; 86301; 86304; 87070; 87075; 87102; 87205; 87635; 88108; 88305; 88341; 88342; 89050; 93970; 94640; 94760; 96361; 96374; 96375; 99285